=== PATIENT | male | born 1960 | race Caucasian/White ===

== ENCOUNTER 2020-04-19 17:58 | Emergency (ER) | payer OTHER, BC, SELFPAY ==
[2020-04-19] VITALS (17 sets, daily range): BP systolic 115–151; BP diastolic 72–106; PULSE 65–74; RESP 14–25; TEMP 36.5; O2SAT 94–98
--- NOTE | ~2020-04-19 | XR_ITS ---
EXAMINATION: XR knee LT min 4V DATE: 04/19/2020 19:01 INDICATION: Right knee pain TECHNIQUE: Four views of the right knee were obtained. COMPARISON: None. FINDINGS: Alignment is normal. No fracture or osteochondral lesion. There is mild tricompartmental os teoarthritis characterized by tiny marginal osteophytes. No joint effusion/synovitis. There is anter ior soft tissue swelling of the knee. IMPRESSION: 1. No acute osseous abnormality. Reviewed, dictated and finalized at location A.
--- NOTE | ~2020-04-19 | CT_ITS ---
EXAMINATION: CT brain wo con INDICATION: Head injury, transient alteration of awareness COMPARISON: None TECHNIQUE: Standard unenhanced head CT. The dose-length product (DLP) was 605.33 mGy-cm. The mA was a djusted according to patient size. Iterative reconstruction technique was employed. FINDINGS: There is no intracranial hemorrhage, acute infarction, or abnormal mass lesion. The ventric les are normal. There is no abnormal mass effect or midline shift. The pablo-white matter differentiat ion is normal. The basal cisterns are patent. The orbits are normal. The paranasal sinuses, mastoids and calvarium are normal. IMPRESSION: 1. No acute intracranial abnormality. Reviewed, dictated and finalized at location A.
--- NOTE | ~2020-04-19 | XR_ITS ---
EXAMINATION: XR chest 2V DATE: 04/19/2020 19:00 INDICATION: Transient alteration of awareness TECHNIQUE: AP and lateral views of the chest are obtained. COMPARISON: None available FINDINGS: The lungs are free of acute opacities. There is no pleural effusion or pneumothorax. The ca rdiomediastinal silhouette is normal. There are bridging osteophytes at multiple levels in the spine, consistent with diffuse idiopathic skeletal hyperostosis (DISH). IMPRESSION: 1. No acute cardiopulmonary abnormality. Reviewed, dictated and finalized at location A.
--- NOTE | 2020-04-19 18:23 | ECG_ITS ---
Measurements Intervals [place] Rate: 62 P: 39 DC: 221 QRS: -23 QRSD: 96 T: -1 QT: 376 QTc: 383 Interpretive Statements SINUS RHYTHM WITH FIRST DEGREE AV BLOCK EARLY PRECORDIAL R/S TRANSITION VOLTAGE CRITERIA FOR LVH BASELINE WANDER- V5 ABNORMAL ECG Electronically Signed On 04-20-2020 6:45:59 CDT by Sina Calderón D.O.
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
[2020-04-19 19:16] LABS: Basophils Absolute Auto 0.1 K/mm3 (0.0-0.1); Basophils Percent Auto 0.6 % (0.2-1.2); Eosinophils Absolute Auto 0.2 K/mm3 (0-0.3); Hematocrit 42.8 % (42.0-52.0); Hemoglobin 14.8 g/dL (14.0-18.0); Immature Granulocyte Absolute 0.03 K/mm3 (0.00-0.031); Immature Granulocyte Percent A 0.3 % (0-0.5); Lymphocytes Percent Auto 25.5 % (18.3-44.2); Mean Corpuscular HGB Conc 34.6 g/dl (32-36); Mean Corpuscular Volume 86.8 fl (80-100); Mean Platelet Volume 10.1 fl (7.4-10.4); Monocytes Absolute Auto 0.7 K/mm3 (0.1-0.6); Monocytes Percent Auto 7.9 % (2.6-8.5); Neutrophils Absolute Auto 5.8 K/mm3 (1.3-6.7); Neutrophils Percent Auto 63.7 % (45.5-73.1); Platelet Count Result 254 k/mm3 (150-375); Red Blood Count 4.93 M/mm3 (4.6-6.20); Red Cell Distribution Width 12.2 % (11.5-14.5)
[2020-04-19 19:25] LABS: INR 1.1; Prothrombin Time 13.6 Seconds (11.1-14.7)
[2020-04-19 19:26] LABS: Partial Thromboplastin Time 26.4 SECONDS (22.3-36.8)
[2020-04-19 19:27] LABS: Anion Gap 6 mmol/L (8-16); Blood Urea Nitrogen 21 mg/dL (9-20); Calcium 9.4 mg/dL (8.4-10.2); Carbon Dioxide 27 mmol/L (22-30); Chloride 106 mmol/L (98-107); Estimated CRCL calculation 101 ml/min; Estimated Glomerular Filt Rate > 60; Glucose 106 mg/dL (75-110); Potassium 4.2 mmol/L (3.4-5.0); Sodium 139 mmol/L (137-145)
[2020-04-19 19:39] LABS: Troponin I < 0.012 ng/mL (0.000-0.034)
== END 2020-04-19 20:33 | disposition home or self-care (01) ==
PROVIDERS: Physician Assistant; Emergency Provider Emergency Medicine; PCP Family Medicine
DX: M25.562 Pain in left knee (principal); S09.90XA Unspecified injury of head, initial encounter; M19.90 Unspecified osteoarthritis, unspecified site; F17.290 Nicotine dependence, other tobacco product, uncomplicated; V49.40XA Driver injured in collision with unspecified motor vehicles in traffic accident, initial encounter; I44.0 Atrioventricular block, first degree; R94.31 Abnormal electrocardiogram [ECG] [EKG]
CPT/HCPCS: 36415; 70450; 71046; 73564; 80048; 84484; 85025; 85610; 85730; 93005; 99284

== ENCOUNTER 2022-08-27 12:14 | Emergency (ER) | payer BC, SELFPAY ==
[2022-08-27 12:26] VITALS: BP 149/86; PULSE 68; RESP 20; TEMP 36.1; O2SAT 100
--- NOTE | 2022-08-27 12:45 | ED.GENADULT ---
HPI - General Adult General Chief complaint: Extremity Problem,Nontraumatic Stated complaint: Rt Foot Swelling Time Seen by Provider: 08/27/22 12:32 Source: patient Mode of arrival: ambulatory Limitations: no limitations History of Present Illness HPI narrative: Patient presents today complaining of redness, swelling, and pain to his right foot x3 days. Believes he has a gout flare. Currently rates his pain 6/10 and has been taking Aleve with some relief. Denies numbness or tingling. States his last gout flare was approximately 8 months ago. Prior to that he did not have a flare for 6-7 years. States he used to be on allopurinol, but was taken off of it 6-7 years ago. He is on meloxicam daily for arthritis. Related Data Home Medications Medication Instructions Recorded Confirmed meloxicam 7.5 mg tablet 7.5 mg PO DAILY 04/19/20 08/27/22 Allergies Allergy/AdvReac Type Severity Reaction Status Date / Time azithromycin AdvReac Severe Swelling Verified 08/27/22 12:18 of Lip/Tongue/Throat Review of Systems Review of Systems: CONSTITUTIONAL: Denies body aches, fever, chills, or sweats. EYES: Denies visual changes, redness, or discharge. ENT: Denies rhinorrhea, congestion, sore throat, or otalgia. CARDIOVASCULAR: Denies chest pain, palpitations, or edema. RESPIRATORY: Denies cough or dyspnea. GASTROINTESTINAL: Denies abdominal pain, nausea, vomiting, or diarrhea. GENITOURINARY: Denies dysuria or hematuria. SKIN: Denies rash, itching, or wounds. MUSCULOSKELETAL: Denies back pain, or myalgia.+ right foot pain and redness NEUROLOGIC: Denies headache, numbness, tingling, or weakness. PSYCH: Denies depression or anxiety. [facility] Past Medical History Medical History (Updated 08/27/22 @ 12:50 by Chantell Quinones, HARIS, BC) History of gout Osteoarthritis Social History Social History Smoking status: Current every day smoker Tobacco type: cigars Substance use: never Gender identity (if verbalized by the patient): Male Sexual Orientation (if Verbalized by the Patient): Straight or Heterosexual Comments At time of signature, I have reviewed and agree with nursing past medical, surgical, social and family history unless otherwise noted. Please see nursing chart for further information. There is no relevant family history pertinent to the presenting complaint Exam Narrative: GENERAL: Well-appearing, well-nourished, and in no acute distress. HEAD: Normocephalic, atraumatic. EYES: EOMI. No redness or drainage. Conjunctivae normal. ENT: Mucous membranes pink and moist. NECK: Normal AROM. CHEST: No respiratory distress. EXTREMITIES: Right foot: Mild to moderate redness, mild swelling, and tenderness to the right 1st MTP. Distal sensation intact. Capillary refill normal. Pedal pulse normal. Full range of motion of all toes. SKIN: Warm, dry, no rash. Capillary refill normal. Normal skin turgor. NEURO: No focal deficits. Alert and oriented x3. Gait steady. PSYCH: Normal affect. No signs of depression or anxiety. Course Course Level of Care: Express Care Visit Vital Signs Vital signs: Vital Signs Temperature 97.0 F L 08/27/22 12:26 Pulse Rate 68 08/27/22 12:26 Respiratory Rate 08/27/22 12:26 Blood Pressure 149/86 H 08/27/22 12:26 Pulse Oximetry 100 08/27/22 12:26 Oxygen Delivery Room Air 08/27/22 12:26 Temperature 97.0 F L 08/27/22 12:26 Pulse Rate 68 08/27/22 12:26 Respiratory Rate 20 08/27/22 12:26 Blood Pressure 149/86 H 08/27/22 12:26 Pulse Oximetry 100 08/27/22 12:26 Oxygen Delivery Room Air 08/27/22 12:26 Reviewed. Pt has been instructed to follow up with his PCP regarding his elevated blood pressure today. Medical Decision Making MDM Narrative Medical decision making narrative: Patient's exam is consistent with a gout flare. Will prescribe Medrol Dosepak and colchicine.
== END 2022-08-27 12:52 | disposition home or self-care (01) ==
PROVIDERS: Emergency Provider Nurse Practitioner; PCP Family Medicine
DX: M10.9 Gout, unspecified (principal); F17.290 Nicotine dependence, other tobacco product, uncomplicated; M19.90 Unspecified osteoarthritis, unspecified site
CPT/HCPCS: 99213; G0463

== ENCOUNTER 2022-12-27 13:49 | Emergency (ER) | payer BC, SELFPAY ==
[2022-12-27 14:02] VITALS: BP 131/75; PULSE 70; RESP 20; TEMP 36.8; O2SAT 99
--- NOTE | 2022-12-27 14:22 | ED.GENADULT ---
HPI - General Adult General Chief complaint: Extremity Problem,Nontraumatic Stated complaint: Toe Swelling Rt Foot Time Seen by Provider: 12/27/22 14:23 Source: patient Mode of arrival: ambulatory Limitations: no limitations History of Present Illness HPI narrative: 62-year-old male patient presents to the [facility] with complaints of bilateral Clive swelling. Patient states it started a couple of days ago after he had some beers. Patient states he used to get down a lot and adjusted his diet but recently had some beer and noticed the next day he had some redness and swelling to the right great toe area. Patient states he did take some ibuprofen and swelling did go down now he is having pain to the left great toe area. Denies any fevers, body aches or chills. Denies any trauma to the feet he is aware of. Related Data Home Medications Medication Instructions Recorded Confirmed meloxicam 7.5 mg tablet 7.5 mg PO DAILY 04/19/20 12/27/22 Allergies Allergy/AdvReac Type Severity Reaction Status Date / Time azithromycin AdvReac Severe Swelling Verified 12/27/22 13:57 of Lip/Tongue/Throat Review of Systems Review of Systems: CONSTITUTIONAL: Denies fever, chills, or sweats. EYES: Denies visual changes, redness, or discharge. ENT: Denies rhinorrhea, congestion, sore throat, or otalgia. CARDIOVASCULAR: Denies chest pain, palpitations, or edema. RESPIRATORY: Denies cough or dyspnea. GASTROINTESTINAL: Denies abdominal pain, nausea, vomiting, or diarrhea. GENITOURINARY: Denies dysuria or hematuria. SKIN: Denies rash or itching. MUSCULOSKELETAL: Denies back pain, joint pain, or myalgia. Positive pain to bilateral great toes NEUROLOGIC: Denies headache, numbness, or weakness. PSYCHIATRIC: Denies anxiety or depression. [facility] Past Medical History Medical History History of gout Osteoarthritis Social History Social History Smoking status: Current every day smoker Tobacco type: cigars Substance use: never Gender identity (if verbalized by the patient): Male Sexual Orientation (if Verbalized by the Patient): Straight or Heterosexual Comments At the time of my signature I agree with nursing past medical history, surgical, social, and family history. There is no relevant family history pertinent to the presenting complaint. Exam Narrative: GENERAL: Well-appearing, well-nourished, and in no acute distress. HEAD: Normocephalic, atraumatic. EYES: PERRLA and EOMI. ENT: Nares clear, no rhinorrhea or epistaxis. Mucous membranes moist. NECK: Supple. No lymphadenopathy CHEST: Clear to auscultation. No respiratory distress. HEART: Regular rate and rhythm. No murmur heard. Normal peripheral pulses. ABDOMEN: Soft, nontender, nondistended, normal active bowel sounds. EXTREMITIES: Patient able to bear weight and ambulate without pain. No surface trauma, slight Erythema to bilateral toes no obvious warmth noted on palpation. no ecchymosis, lesions, ulcers or break in skin integrity. The R/L foot is with/without obvious asymmetry or deformity when compared to the R/L foot. No bony step-off, tender to palpation over the left great toe, no tenderness on palpation to the midfoot or hindfoot or sole. Normal plantar/dorsiflexion, inversion/eversion. Distal motor and neurovascular status are intact SKIN: Warm, dry, no rash. NEURO: No focal deficits. Alert and oriented x3. Course Course Level of Care: Express Care Visit Vital Signs Vital signs: Vital Signs Temperature 36.8 C 12/27/22 14:02 Pulse Rate 70 12/27/22 14:02 Respiratory Rate 20 12/27/22 14:02 Blood Pressure 131/75 12/27/22 14:02 Pulse Oximetry 99 12/27/22 14:02 Oxygen Delivery Room Air 12/27/22 14:02 Temperature 36.8 C 12/27/22 14:02 Pulse Rate 70 12/27/22 14:02 Respiratory Rate 20 12/27/22 14:02 Blo
== END 2022-12-27 14:41 | disposition home or self-care (01) ==
PROVIDERS: Emergency Provider Nurse Practitioner Family; PCP Family Medicine
DX: M10.9 Gout, unspecified (principal); F17.290 Nicotine dependence, other tobacco product, uncomplicated; M19.90 Unspecified osteoarthritis, unspecified site
CPT/HCPCS: 99213; G0463

== ENCOUNTER 2023-06-20 08:33 | Emergency (ER) | payer BC, SELFPAY ==
--- NOTE | ~2023-06-20 | XR_ITS ---
EXAMINATION: XR foot RT min 3V DATE: 06/20/2023 09:08 INDICATION: Right foot pain TECHNIQUE: Dorsoplantar, lateral, and 2 oblique views of the right foot were obtained. COMPARISON: None. FINDINGS: Bone alignment is normal. There is no fracture. There is mild osteoarthritis of multiple in terphalangeal joints. There is mild lateral soft tissue swelling of the foot. There are posterior and plantar calcaneal enthesophytes. IMPRESSION: 1. Mild lateral soft tissue swelling the foot without acute osseous abnormality identified. Reviewed, dictated and finalized at location A. ARD [facility]AC[facility]RACK
[2023-06-20 08:42] VITALS: BP 142/82; PULSE 63; RESP 18; TEMP 36.6; O2SAT 100
--- NOTE | 2023-06-20 08:58 | ED.LOWEXIN ---
HPI - Extremity Injury (Lower) General Chief Complaint: Extremity Injury, Lower Stated Complaint: Rt Foot Pain and Swelling Time Seen by Provider: 06/20/23 08:34 Source: patient Mode of arrival: ambulatory Limitations: no limitations History of Present Illness HPI Narrative: 63-year-old male presents to [facility] with complaints of pain and swelling to lateral aspect of right foot. Pt reports that he takes Meloxicam daily. Pt reports that he also has been elevating his right foot and taking OTC Motrin with minimal relief. Pt denies injury; reports that he has been standing and cooking the past few days and also has been wearing boots and walking on rocks while working but denies actual injury. Pt denies numbness, tingling, erythema, bruising or open wounds. Pt reports that he has a a history of gout but reports that these symptoms feel different. Onset (ago): day(s) (3) Injury: Right: foot Relieving factors: nothing Exacerbating factors: weight bearing and movement Other symptoms: none Treatments prior to arrival: NSAIDS Related Data Home Medications Medication Instructions Recorded Confirmed meloxicam 7.5 mg tablet 7.5 mg PO DAILY 04/19/20 06/20/23 tadalafil 20 mg tablet 20 mg PO PRN PRN Erectile 06/20/23 06/20/23 Dysfunction Allergies Allergy/AdvReac Type Severity Reaction Status Date / Time azithromycin AdvReac Severe Swelling Verified 12/27/22 13:57 of Lip/Tongue/Throat Review of Systems Constitutional: Constitutional: Denies chills, Denies fatigue, Denies fever(s) and Denies weakness ENT: Denies vertigo, Denies dizziness and Denies epistaxis Cardiovascular: Cardiovascular: Denies chest pain Respiratory: Respiratory: Denies cough, Denies dyspnea and Denies wheezing Gastrointestinal: Gastrointestinal: Denies abdominal pain, Denies bloating, Denies constipation, Denies heartburn and Denies diarrhea Musculoskeletal: Musculoskeletal: Reports arthralgias and Reports joint swelling Comments: pain and swelling to lateral aspect of right foot Integumentary/Breasts: Skin/Breast: Denies rash Neurologic: Denies vertigo, Denies dizziness, Denies syncope and Denies headache(s) [facility] Past Medical History Medical History History of gout Osteoarthritis Social History Social History Smoking status: Current every day smoker Tobacco type: cigars Substance use: never Gender identity (if verbalized by the patient): Male Sexual Orientation (if Verbalized by the Patient): Straight or Heterosexual Comments At time of signature, I agree with nursing past medical, surgical, social and family history. There is no relevant family history pertinent to the presenting complaint. Exam Const: General: healthy appearing and no acute distress Nutritional Appearance: well nourished Orientation/consciousness: patient oriented x3 Limitations: no limitations Eyes: Conjunctivae: conjunctivae normal Neck: Neck: normal visual inspection Resp: Effort & Inspection: normal respiratory effort and not labored Auscultation: clear to auscultation bilaterally, no crackles, no rales, no rhonchi and no wheezes Cardio: Rate: regular rate Rhythm: regular rhythm Heart sounds: no murmurs Skin: General skin exam: normal color Rashes: no rashes Neuro: General: patient oriented x3 Speech: normal speech Extrem: Other: mild pain noted to right foot upon palpation; mild swelling noted to lateral aspect of right foot. Pulses are within normal limits. No erythema or open wounds noted Psych: Mental Status: mental status grossly normal Affect: normal affect Attitude: cooperative Course Course Level of Care: Express Care Visit Vital Signs Vital signs: Vital Signs Temperature 36.6 C 06/20/23 08:42 Pulse Rate 63 06/20/23 08:42 Respiratory Rate 18 06/20/23 08:42 Blood Pressure 14
== END 2023-06-20 09:55 | disposition home or self-care (01) ==
PROVIDERS: Emergency Provider Nurse Practitioner Family; PCP Family Medicine
DX: M79.671 Pain in right foot (principal); M79.89 Other specified soft tissue disorders; F17.290 Nicotine dependence, other tobacco product, uncomplicated; Z79.1 Long term (current) use of non-steroidal anti-inflammatories (NSAID)
CPT/HCPCS: 73630; 99213; G0463

== ENCOUNTER 2024-04-07 09:13 | Emergency (ER) | payer BC, SELFPAY ==
[2024-04-07 09:24] VITALS: BP 139/73; PULSE 57; RESP 18; TEMP 36.6; O2SAT 97
--- NOTE | 2024-04-07 09:24 | ED.LOWEXIN ---
HPI - Extremity Injury (Lower) General Chief Complaint: Extremity Injury, Lower Stated Complaint: knee pain Time Seen by Provider: 04/07/24 09:24 Source: patient, RN notes reviewed and old records reviewed Mode of arrival: ambulatory Limitations: no limitations History of Present Illness HPI Narrative: 64-year-old male to Express Care for complaint of right leg swelling, weakness, sharp pain for 1 day. Patient reports that 1 week ago he was experiencing what he believed was right sciatic pain radiating down into right thigh. Patient reports then that pain resolved. Patient states that current symptoms began yesterday. Patient has attempted to treat at home with Aleve with little relief. Patient reports that pain is significantly worse with weight-bearing and ambulation. Patient endorses history of tobacco use. Patient denies numbness, tingling, bleeding or clotting disorders, Shortness of breath, chest pain. Patient resting in exam room in no acute distress. Respirations even and nonlabored. Related Data Home Medications Medication Instructions Recorded Confirmed meloxicam 7.5 mg tablet 7.5 mg PO DAILY 04/19/20 04/07/24 tadalafil 20 mg tablet 20 mg PO PRN PRN Erectile 06/20/23 04/07/24 Dysfunction Allergies Allergy/AdvReac Type Severity Reaction Status Date / Time azithromycin AdvReac Severe Swelling Verified 04/07/24 10:27 of Lip/Tongue/Throat Review of Systems Review of Systems: All systems reviewed & are unremarkable except as noted in HPI and below Constitutional: Constitutional: Reports no additional constitutional complaints Eyes: Eyes: Reports no additional eye complaints ENT: Reports system reviewed and no additional complaints, except as documented Cardiovascular: Cardiovascular: Reports no additional cardiovascular complaints, Denies chest pain and Denies dyspnea Respiratory: Respiratory: Reports no additional respiratory complaints, Denies cough and Denies dyspnea Musculoskeletal: Musculoskeletal: Reports as per HPI, Reports arthralgias (right knee), Reports joint swelling and Reports radiating pain into limb Neurologic: Reports system reviewed and no additional complaints, except as documented Psychiatric: Psychiatric: Reports no additional psychiatric complaints PMFSH Past Medical History Medical History History of gout Osteoarthritis Social History Social History Smoking status: Current every day smoker Tobacco type: cigars Substance use: never Gender identity (if verbalized by the patient): Male Sexual Orientation (if Verbalized by the Patient): Straight or Heterosexual Comments At the time of my signature, I reviewed and agree with the nursing past medical, surgical, social, and family history. There is no relevant family history pertinent to the patient complaint. Exam Const: General: cooperative, no acute distress, alert, uncomfortable, well groomed and well nourished Nutritional Appearance: well nourished Orientation/consciousness: patient oriented x3 Limitations: no limitations HENMT: Head: normal to inspection Ears: external ears normal Face/Nose/Sinus: Normal external nose present, Normal nares present, normal facial exam, No erythema and No edema Face and sinus: normal facial exam, no erythema and no edema Mouth: Yes Normal oral and palatal mucosa present Eyes: General: appearance normal, both eyes and all related structures Neck: Neck: normal visual inspection, full ROM and no meningeal signs Chest: Chest palpation & inspection: normal inspection of the chest Resp: Effort & Inspection: normal respiratory effort and able to speak in complete sentences Auscultation: clear to auscultation bilaterally Cardio: Jugular venous distension: no JVD Rate: regular rate Rhythm: regular rhythm Back/Spine/Pelvis: Cervical Spine: c
[2024-04-07 09:25] VITALS: BP 139/73; PULSE 57; RESP 18; TEMP 36.6; O2SAT 97
== END 2024-04-07 09:50 | disposition short-term general hospital (02) ==
LOC: EXPTROY 09:17
PROVIDERS: Emergency Provider Nurse Practitioner Family; PCP Family Medicine
DX: I82.401 Acute embolism and thrombosis of unspecified deep veins of right lower extremity (principal); M25.561 Pain in right knee; F17.290 Nicotine dependence, other tobacco product, uncomplicated; M10.9 Gout, unspecified; M19.90 Unspecified osteoarthritis, unspecified site
CPT/HCPCS: 99212; G0463

== ENCOUNTER 2024-04-07 10:06 | Emergency (ER) | payer BC, SELFPAY ==
--- NOTE | ~2024-04-07 | US_ITS ---
EXAMINATION: US venous doppler LE RT DATE: 04/07/2024 11:28 INDICATION: Right lower limb pain and swelling TECHNIQUE: Grayscale ultrasound images without and with compression and Doppler ultrasound images of the right lower extremity veins were obtained. COMPARISON: None. FINDINGS: There is noncompressible thrombus beginning in the mid right femoral vein and extending distally thro ugh the popliteal vein and into the proximal peroneal and posterior tibial veins of the calf. The vis ualized portions of right common femoral vein, profunda (deep) femoral vein, the more proximal femora l vein, more distal peroneal and posterior tibial veins, gastrocnemius vein and proximal to mid great er saphenous vein outflow are patent. IMPRESSION: 1. Above and [id number] deep venous thrombosis extending from the proximal posterior tibial and peroneal veins through the popliteal vein into the mid superficial femoral vein. Reviewed, dictated and finalized at location B. IMPRESSION: 1. Above and [id number] deep venous thrombosis extending from the proximal posterior tibial and peroneal veins through the popliteal vein into the mid barajas perficial femoral vein.
[2024-04-07 10:23] VITALS: BP 167/84; PULSE 58; RESP 15; TEMP 36.7; O2SAT 98
--- NOTE | 2024-04-07 10:28 | ED.EXTPRO ---
HPI - Extremity Problem General Chief complaint: Extremity Problem,Nontraumatic Stated complaint: right leg pain Time Seen by Provider: 04/07/24 10:29 Focused HPI: This is a 64 year old male that presents to the ER for right leg swelling. Ongoing over the last 3 days. Sent to the ER to r/o DVT. Denies fevers or redness. GENERAL: Well-appearing, well-nourished, and in no acute distress. HEAD: Normocephalic, atraumatic. CHEST: Clear to auscultation. ?No respiratory distress. HEART: Regular rate and rhythm.? NEURO: ?Alert and oriented x3. Patient screened in triage and initial orders placed.? ?Additional care and disposition to be based upon?diagnostic testing and treatment. Related Data Home Medications Medication Instructions Recorded Confirmed meloxicam 7.5 mg tablet 7.5 mg PO DAILY 04/19/20 04/07/24 tadalafil 20 mg tablet 20 mg PO PRN PRN Erectile 06/20/23 04/07/24 Dysfunction Allergies Allergy/AdvReac Type Severity Reaction Status Date / Time azithromycin AdvReac Severe Swelling Verified 04/07/24 10:27 of Lip/Tongue/Throat Review of Systems Review of Systems: CONSTITUTIONAL: Denies fever CARDIOVASCULAR: Reports edema. Denies chest pain RESPIRATORY: Denies dyspnea. SKIN: Denies redness All systems reviewed & are unremarkable except as noted in HPI and below PMFSH Past Medical History Medical History History of gout Osteoarthritis Social History Social History Smoking status: Current every day smoker Tobacco type: cigars Substance use: never Gender identity (if verbalized by the patient): Male Sexual Orientation (if Verbalized by the Patient): Straight or Heterosexual Exam Narrative: GENERAL: Well-appearing, well-nourished, and in no acute distress. HEAD: Normocephalic, atraumatic. EYES: EOMI. CHEST: No respiratory distress. HEART: Regular rate EXTREMITIES: Normal range of motion. Mild non-pitting edema to the right lower leg. Normal DP pulse. Normal sensation SKIN: Warm, dry, no rash. NEURO: No focal deficits. Alert and oriented x3. PSYCH: Normal mood and affect Course Consultations Consultation #1: Spoke with patient's PCP who agrees with plan and will follow up in clinic Date: 04/07/24 Vital Signs Vital signs: Vital Signs Temperature 98.1 F 04/07/24 10:23 Pulse Rate 58 L 04/07/24 10:23 Respiratory Rate 15 04/07/24 10:23 Blood Pressure 167/84 H 04/07/24 10:23 Pulse Oximetry 98 04/07/24 10:23 Oxygen Delivery Room Air 04/07/24 10:23 Temperature 98.1 F 04/07/24 10:23 Pulse Rate 58 L 04/07/24 10:23 Respiratory Rate 15 04/07/24 10:23 Blood Pressure 167/84 H 04/07/24 10:23 Pulse Oximetry 98 04/07/24 10:23 Oxygen Delivery Room Air 04/07/24 10:23 MDM - Extremity (Nontraumatic) MDM Narrative Medical decision making narrative: patient presents to the emergency department for right posterior knee pain. Found to have a DVT on ultrasound. He is neurovascularly intact. Denies any chest pain, shortness of breath. He is not tachycardic. Oxygen saturation is normal on room air. Patient will be started on Eliquis. Spoke with patient's PCP who agrees with plan and will follow up in clinic Differential Diagnosis Differential diagnosis: Likely superficial thrombophlebitis and deep vein thrombosis of lower extremity Lab Data 04/07/24 11:57 04/07/24 11:57 Labs: Lab Results 04/07/24 Range/Units 11:57 WBC 13.7 H (4.5-10.0) K/mm3 RBC 4.85 (4.6-6.20) M/mm3 Hgb 14.9 (14.0-18.0) g/dL Hct 44.5 (42.0-52.0) % MCV 91.8 (80-100) fl MCH 30.7 (26-34) pg MCHC 33.5 (32-36) g/dl RDW 13.2 (11.5-14.5) % Plt Count 186 (150-375) k/mm3 MPV 10.3 (7.4-10.4) fl Immature Gran % (Auto) 0.6 H (0-0.5) % Neut % (Auto) 73.9 H (45.5-73.1) % Lymph % (Auto) 16.5 L (1
[2024-04-07 12:07] LABS: Basophils Percent Auto 0.2 % (0.2-1.2); Eosinophils Absolute Auto 0.1 K/mm3 (0-0.3); Eosinophils Percent Auto 0.7 % (0-4.4); Hematocrit 44.5 % (42.0-52.0); Hemoglobin 14.9 g/dL (14.0-18.0); Immature Granulocyte Absolute 0.08 K/mm3 (0.00-0.031); Immature Granulocyte Percent A 0.6 % (0-0.5); Lymphocytes Absolute Auto 2.25 K/mm3 (0.9-3.2); Lymphocytes Percent Auto 16.5 % (18.3-44.2); Mean Corpuscular HGB Conc 33.5 g/dl (32-36); Mean Corpuscular Hemoglobin 30.7 pg (26-34); Mean Corpuscular Volume 91.8 fl (80-100); Mean Platelet Volume 10.3 fl (7.4-10.4); Monocytes Absolute Auto 1.1 K/mm3 (0.1-0.6); Monocytes Percent Auto 8.1 % (2.6-8.5); Neutrophils Absolute Auto 10.1 K/mm3 (1.3-6.7); Neutrophils Percent Auto 73.9 % (45.5-73.1); Platelet Count Result 186 k/mm3 (150-375); Red Blood Count 4.85 M/mm3 (4.6-6.20); Red Cell Distribution Width 13.2 % (11.5-14.5); White Blood Count 13.7 K/mm3 (4.5-10.0)
[2024-04-07 12:16] LABS: Anion Gap 10 mmol/L (4-12); Blood Urea Nitrogen 30 mg/dL (9-20); Calcium 9.2 mg/dL (8.4-10.2); Carbon Dioxide 24 mmol/L (22-30); Chloride 103 mmol/L (98-107); Estimated CRCL calculation 107 ml/min; Estimated Glomerular Filt Rate > 60; Glucose 97 mg/dL (65-110); Potassium 4.2 mmol/L (3.4-5.0); Sodium 137 mmol/L (137-145)
[2024-04-07 12:23] LABS: INR 1.1; Prothrombin Time 14.4 Seconds (11.1-14.7)
[2024-04-07 12:24] LABS: Partial Thromboplastin Time 24.7 Seconds (22.3-36.8)
[2024-04-07 12:35] VITALS: BP 159/84; PULSE 51; RESP 18; TEMP 36.6; O2SAT 96
--- NOTE | 2024-04-07 16:32 | PCCCNOTE ---
rehabilitation program coordinator called to the ED for assistance with Eliquis for pt. Pt given a 30 day free coupon. Explained to pt, he verbalized understanding.
== END 2024-04-07 12:35 | disposition home or self-care (01) ==
PROVIDERS: Emergency Provider Physician Assistant; PCP Family Medicine
DX: I82.431 Acute embolism and thrombosis of right popliteal vein (principal); F17.290 Nicotine dependence, other tobacco product, uncomplicated; Z79.1 Long term (current) use of non-steroidal anti-inflammatories (NSAID)
CPT/HCPCS: 36415; 80048; 85025; 85610; 85730; 93971; 99284

== ENCOUNTER 2024-05-23 16:07 | Emergency (ER) | payer BC, SELFPAY ==
[2024-05-23 16:31] VITALS: BP 160/86; PULSE 73; RESP 18; TEMP 36.5; O2SAT 98
--- NOTE | 2024-05-23 17:03 | ED.EXTPRO ---
HPI - Extremity Problem General Chief complaint: Extremity Problem,Nontraumatic Stated complaint: LT Foot Injury Time Seen by Provider: 05/23/24 16:45 Source: patient and RN notes reviewed Mode of arrival: ambulatory Limitations: no limitations History of Present Illness HPI Narrative: Patient presents today complaining of pain to his left 1st toe area. Symptoms began today and have worsened through the day. Denies numbness or tingling. Believes he is having a gout flare as he has had several in the past. He is pain-free at rest, but increases with any weight-bearing or movement of the toe. He has tried Tylenol without relief. He is currently on Eliquis due to DVT that was found last month. Related Data Home Medications Medication Instructions Recorded Confirmed tadalafil 20 mg tablet 20 mg PO PRN PRN Erectile 06/20/23 05/23/24 Dysfunction Allergies Allergy/AdvReac Type Severity Reaction Status Date / Time azithromycin AdvReac Severe Swelling Verified 05/23/24 16:31 of Lip/Tongue/Throat Review of Systems Review of Systems: CONSTITUTIONAL: Denies body aches, fever, chills, or sweats. EYES: Denies visual changes, redness, or discharge. ENT: Denies rhinorrhea, congestion, sore throat, or otalgia. CARDIOVASCULAR: Denies chest pain, palpitations, or edema. RESPIRATORY: Denies cough or dyspnea. GASTROINTESTINAL: Denies abdominal pain, nausea, vomiting, or diarrhea. GENITOURINARY: Denies dysuria or hematuria. SKIN: Denies rash, itching, or wounds. MUSCULOSKELETAL: Denies back pain. + left 1st toe pain NEUROLOGIC: Denies headache, numbness, tingling, or weakness. PSYCH: Denies depression or anxiety. [facility] Past Medical History Medical History (Updated 05/23/24 @ 17:07 by Chantell Quinones, HARIS, ) DVT (deep venous thrombosis) History of gout Osteoarthritis Social History Social History Smoking status: Current every day smoker Tobacco type: cigars Substance use: never Gender identity (if verbalized by the patient): Male Sexual Orientation (if Verbalized by the Patient): Straight or Heterosexual Comments At time of signature, I have reviewed and agree with nursing past medical, surgical, social and family history unless otherwise noted. Please see nursing chart for further information. There is no relevant family history pertinent to the presenting complaint Exam Narrative: GENERAL: Well-appearing, well-nourished, and in no acute distress. HEAD: Normocephalic, atraumatic. EYES: EOMI. No redness or drainage. Conjunctivae normal. ENT: Mucous membranes pink and moist. NECK: Normal AROM. CHEST: No respiratory distress. EXTREMITIES: Left foot: Mild redness and tenderness and scant edema to the left 1st MTP. Pain with range of motion. Distal sensation intact. Capillary refill normal. Pedal pulse is strong. Remainder of the foot appears normal without tenderness. Lower leg is nontender. SKIN: Warm, dry, no rash. Capillary refill normal. Normal skin turgor. NEURO: No focal deficits. Alert and oriented x3. Gait steady. PSYCH: Normal affect. No signs of depression or anxiety. Course Course Level of Care: Express Care Visit Vital Signs Vital signs: Vital Signs Temperature 97.7 F 05/23/24 16:31 Pulse Rate 73 05/23/24 16:31 Respiratory Rate 18 05/23/24 16:31 Blood Pressure 160/86 H 05/23/24 16:31 Pulse Oximetry 98 05/23/24 16:31 Temperature 97.7 F 05/23/24 16:31 Pulse Rate 73 05/23/24 16:31 Respiratory Rate 18 05/23/24 16:31 Blood Pressure 160/86 H 05/23/24 16:31 Pulse Oximetry 98 05/23/24 16:31 Reviewed MDM - Extremity (Nontraumatic) MDM Narrative Medical decision making narrative: Patient's symptoms are likely due to gout. He cannot take NSAIDs due to Eliquis use. Prescription for prednisone sent to pharmacy. Anticipatory guidance given Differential Diagnosis Differential diagnosis: Likely gout, cellulitis and deep vein thrombosis of lower extremity Critical Care Time Critical Care Time Critical Care Time: No Discharge Plan Discharge Clinical Impression: Acute gout involving toe of left foot Qualifiers: Gout etiology: unspecified cause Qualified Code(s): M10.9 - Gout, unspecified Patient Disposition: Home, Self-Care Condition: Stable Instructions: Gout (ED) Additional Instructions: You have been diagnosed with a gout flare. Please take the prednisone as directed. Take Tylenol for pain. Follow-up with your PCP if symptoms do not improve. Go to the ER immediately if symptoms worsen. Your blood pressure was elevated above 120/80 today at Urgent Care. This puts you above the threshold for follow up. Please schedule a followup visit with your personal physician as soon as possible, for further evaluation and treatment. Even blood pressure exceeding 120/80 may indicate pre-hypertension. Prescriptions: New prednisone 50 mg tablet 50 mg PO DAILY 5 Days Qty: 5 0RF No Action tadalafil 20 mg tablet 20 mg PO PRN PRN (Reason: Erectile Dysfunction) [place] DVT-PE Treat 30D Start 5 mg (74 tabs) tablets,dose pack See Rx Instructions .ROUTE .COMPLEX Qty: 74 0RF Rx Instructions: orally per package directions Follow-up/Referrals: [place],Tres Hudson MD [Primary Care Provider] - Stand Alone Forms: Work/School Release IP Time of Disposition: 17:07
== END 2024-05-23 17:14 | disposition home or self-care (01) ==
PROVIDERS: Emergency Provider Nurse Practitioner; PCP Family Medicine
DX: M10.9 Gout, unspecified (principal); M19.90 Unspecified osteoarthritis, unspecified site; Z86.718 Personal history of other venous thrombosis and embolism; F17.290 Nicotine dependence, other tobacco product, uncomplicated
CPT/HCPCS: 99213; G0463

== ENCOUNTER 2024-07-16 10:09 | Emergency (ER) | payer BC, SELFPAY ==
--- NOTE | ~2024-07-16 | XR_ITS ---
EXAMINATION: XR foot RT min 3V DATE: 07/16/2024 11:41 INDICATION: Right foot pain and swelling. TECHNIQUE: 4 views of right foot were obtained. COMPARISON: Right foot radiographs 06/20/2023 FINDINGS: There is moderate hallux valgus. No fracture. There is mild osteoarthritis of first and sec ond metatarsophalangeal joints and some of the interphalangeal joints and midfoot joints. There are e nthesophytes at the posterior and plantar aspects of calcaneal tuberosity. IMPRESSION: 1. Moderate hallux valgus. 2. Mild polyarticular osteoarthritis. Reviewed, dictated and finalized at location A. 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
[2024-07-16 10:26] VITALS: BP 153/92; PULSE 72; RESP 18; TEMP 36.3; O2SAT 99
--- NOTE | 2024-07-16 11:30 | ED.EXTPRO ---
HPI - Extremity Problem General Chief complaint: Extremity Problem,Nontraumatic Stated complaint: rt foot pain Source: patient Mode of arrival: ambulatory Limitations: no limitations History of Present Illness HPI Narrative: 64-year-old male presents to [facility] with complaints of pain, swelling, erythema and warmth to the base of his right great toe for the past 5 days. Patient reports that he called his primary care provider yesterday and start him on 10 mg of prednisone daily. Patient reports he was started on Eliquis a few months ago due to a DVT but decided to stop the medication 5 days ago. Patient reports his primary care provider is unaware that he has stopped Eliquis. Patient denies injury to his foot. Patient reports he has a history of gout. Patient reports that he believes that he has had gout twice since being placed on Eliquis and this is one of the reasons that he has stopped medication. Patient denies chest pain, shortness of breath, fever, body aches, chills, nausea vomiting or diarrhea MD Complaint: extremity pain and extremity swelling Onset (ago): day(s) (5) Location: right Exacerbating factors: weight bearing, walking and palpation Associated symptoms: denies other symptoms Related Data Home Medications ?Medication ?Instructions ?Recorded ?Confirmed ?Last Taken ?Type tramadol 50 mg tablet mg 07/16/24 Unknown History Allergies Allergy/AdvReac Type Severity Reaction Status Date / Time azithromycin Allergy Severe Swelling Verified 07/16/24 10:59 of Lip/Tongue/Throat Review of Systems Constitutional: Constitutional: Denies chills, Denies fatigue, Denies fever(s) and Denies weakness ENT: Denies dizziness, Denies nasal congestion and Denies sore throat Cardiovascular: Cardiovascular: Denies chest pain Respiratory: Respiratory: Denies cough, Denies dyspnea and Denies wheezing Gastrointestinal: Gastrointestinal: Denies diarrhea, Denies nausea and Denies vomiting Musculoskeletal: Comments: Pain, swelling, erythema and warmth to base of right great toe and right foot PMFSH Past Medical History Medical History DVT (deep venous thrombosis) History of gout Osteoarthritis Social History Social History Smoking status: Current every day smoker Tobacco type: cigars Substance use: never Gender identity (if verbalized by the patient): Male Sexual Orientation (if Verbalized by the Patient): Straight or Heterosexual Comments At time of signature, I agree with nursing past medical, surgical, social and family history. There is no relevant family history pertinent to the presenting complaint. Exam Const: General: healthy appearing and no acute distress Nutritional Appearance: well nourished Orientation/consciousness: patient oriented x3 Limitations: no limitations HENMT: Head: normal to inspection Neck: Neck: normal visual inspection Resp: Effort & Inspection: normal respiratory effort and not labored Auscultation: clear to auscultation bilaterally, no crackles, no rales, no rhonchi and no wheezes Cardio: Rate: regular rate Rhythm: regular rhythm Heart sounds: no murmurs Skin: Rashes: no rashes Wounds: no wounds Other: Mild erythema noted to base of right great toe. There is no streaking erythema, open wounds, purulent drainage or bruising noted Neuro: General: patient oriented x3 and moves all extremities Extrem: Other: Moderate swelling to dorsal aspect of right foot. There is mild erythema noted to base of right great toe. There is no bruising, open wounds or streaking erythema noted. Psych: Mental Status: mental status grossly normal Affect: normal affect Attitude: cooperative Course Course Level of Care: Express Care Visit Vital Signs Vital signs: Vital Signs Temperature 36.3 C L 07/16/24 10:26 Pulse Rate 72 07/16/24 10:26 Respiratory Rate 18 07/16/24 10:26 Blood Pressure 153/92 H 07/16/24 10:26 Pulse Oximetry 99 07/16/24 10:26 Oxygen Delivery Room Air 07/16/24 10:26 Temperature 36.3 C L 07/16/24 10:26 Pulse Rate 72 07/16/24 10:26 Respiratory Rate 18 07/16/24 10:26 Blood Pressure 153/92 H 07/16/24 10:26 Pulse Oximetry 99 07/16/24 10:26 Oxygen Delivery Room Air 07/16/24 10:26 MDM - Extremity (Nontraumatic) MDM Narrative Medical decision making narrative: Spoke with collaborating physician Dr Grant and she suggests the patient start colchicine, change prednisone 10 mg dated Medrol Dosepak and to also add indomethacin. Patient denies history of kidney disease. Educated patient follow-up with primary care provider and to discuss stopping blood thinner. Educated patient to proceed to the emergency room if symptoms worsen Differential Diagnosis Differential diagnosis: Likely cellulitis and superficial thrombophlebitis Imaging Data Radiologist's impression: [address] [address] XRay Report Signed Patient: Mir Maharaj : 1960 MR#: [id number] Age: 64 Acct:[id number] Loc: [facility] ADM Date: 07/16/[address]: Ordering Physician: Rosa Whatley APRN Date of Service: 07/16/24 Procedure(s): XR foot RT min 3V Accession Number(s): [id number] cc: Rosa Whatley APRN; Ramy, Tres Hudson MD~ EXAMINATION: XR foot RT min 3V DATE: 07/16/2024 11:41 INDICATION: Right foot pain and swelling. TECHNIQUE: 4 views of right foot were obtained. COMPARISON: Right foot radiographs 06/20/2023 FINDINGS: There is moderate hallux valgus. No fracture. There is mild osteoarthritis of first and second metatarsophalangeal joints and some of the interphalangeal joints and midfoot joints. There are enthesophytes at the posterior and plantar aspects of calcaneal tuberosity. IMPRESSION: 1. Moderate hallux valgus. 2. Mild polyarticular osteoarthritis. Reviewed, dictated and finalized at location A. COILER Dictated By: Сергей Chicas MD 07/16/24 1146 Signed By: <Electronically signed by Сергей Cihcas MD in [place]> 07/16/24 1148 Critical Care Time Critical Care Time Critical Care Time: No Discharge Plan Discharge Clinical Impression: Gout Patient Disposition: Home, Self-Care Condition: Stable Instructions: Low Purine Diet (ED), Gout (ED) Additional Instructions: Follow-up with primary care provider to discuss stopping blood thinner Stop prednisone 10 mg start Medrol Dosepak as prescribed Take colchicine as prescribed Take indomethacin as prescribed; do not take other NSAIDs while taking indomethacin Proceed to the emergency room if symptoms worsen Patient Language: Kinyarwanda Prescriptions: New colchicine 0.6 mg capsule 0.6 mg PO DIRECTED Qty: 3 0RF Rx Instructions: Take 2 capsules (1.2mg) now, and take 1 capsule (0.6mg) 1 hour later methylprednisolone [Medrol (Adrian)] 4 mg tablets,dose pack See Rx Instructions .ROUTE .COMPLEX Qty: 21 0RF Rx Instructions: orally per package directions indomethacin 25 mg capsule 25 mg PO BID 5 Days Qty: 10 0RF Rx Instructions: administer with food or milk No Action prednisone 50 mg tablet 50 mg PO DAILY 5 Days Qty: 5 0RF tramadol 50 mg tablet Follow-up/Referrals: [place],Tres Hudson MD [Primary Care Provider] -
--- OUTSIDE RECORDS SUMMARY | 2024-07-23 13:10 | XMS_ITS | Encounter Summary ---
Author Organization [facility] Address [address] [place] [address]. [place], [place] [id number] [place] [id number] Care Team Providers Care Multi Share Program Coordinator Name Role Phone Andrew Walters MD Primary Care Provider Unavailable Andrew Walters MD Primary Care Provider Unavailable Encounter Details Date Type Department Care Team (Late st Contact Info) Description 12/09/1995 [place] [address] Andrew Walters MD Social History Tobacco Use Types Packs/Day Years Used Date Smoking Tobacco: Never Assessed Sex and Gender Information Value Date Recorded Sex Assigned at Not on file Legal Sex Male 11:46 PM CDT Gender Identity Not on file Sexual Orientation Not on file documented as of this encounter Plan of Treatment Not on file documented as of this encounter Visit Diagnoses Not on filedocumented in this encounter Care Teams Multi Share Program Coordinator Relationship Specialty Start Date End Date Andrew Walters MD PCP - General 09/22/12 Andrew Walters MD PCP - General 05/10/10 documented as of this encounter
--- OUTSIDE RECORDS SUMMARY | 2024-07-23 13:10 | XMS_ITS | Encounter Summary ---
Author Organization [facility] Address [address] [place] [address]. [place], [place] [id number] [place] [address] Care Team Providers Care Coremaker Machine Name Role Phone Andrew Walters MD Primary Care Provider Unavailable Andrew Walters MD Primary Care Provider Unavailable Encounter Details Date Type Department Care Team (Late st Contact Info) Description 12/02/1990 Abstract [place] [address] Andrew Walters MD Social History Tobacco Use [...] on filedocumented in this encounter Care Teams Coremaker Machine Relationship Specialty Start Date End Date Andrew Walters MD PCP - General 09/22/12 Andrew Walters MD PCP - General 05/10/10 documented as of this encounter
--- OUTSIDE RECORDS SUMMARY | 2024-07-23 13:10 | XMS_ITS | Encounter Summary ---
Author Organization [facility] Address [address] [place] [address]. [place], [place] [id number] [place] [address] Care Team Providers Care Dat Instructor Name Role Phone Andrew Walters MD Primary Care Provider Unavailable Andrew Walters MD Primary Care Provider Unavailable Encounter Details Date Type Department Care Team (Late st Contact Info) Description 09/08/2006 Abstract [place] [address] Marc Au MD Social History Tobacco Use Types Packs/Day [...] on filedocumented in this encounter Care Teams Dat Instructor Relationship Specialty Start Date End Date Andrew Walters MD PCP - General 09/22/12 Andrew Walters MD PCP - General 05/10/10 documented as of this encounter
--- OUTSIDE RECORDS SUMMARY | 2024-07-23 13:10 | XMS_ITS | Encounter Summary ---
Author Organization [facility] Address [address] [place] [address]. [place], [place] [id number] [place] [address] Care Team Providers Care Water Taxi Boat Mate Name Role Phone Andrew Walters MD Primary Care Provider Unavailable Andrew Walters MD Primary Care Provider Unavailable Encounter Details Date Type Department Care Team (Late st Contact Info) Description 10/17/2008 Abstract [facility] [place] [address] Marc Au MD Social History Tobacco Use [...] on filedocumented in this encounter Care Teams Water Taxi Boat Mate Relationship Specialty Start Date End Date Andrew Walters MD PCP - General 09/22/12 Andrew Walters MD PCP - General 05/10/10 documented as of this encounter
--- OUTSIDE RECORDS SUMMARY | 2024-07-23 13:10 | XMS_ITS | Continuity of Care Document ---
Author Organization [facility], [facility] Address [address] [address] Assessment No assessment recorded. Plan of Treatment Reminders Order Date Submit Date Provider Last Modified By Organization Details Last Modified Time Details Appointments ANY 15 025 07:30AM Tres Mccann, DO Not available Not available Not available Lab None record ed. Referral None record ed. Procedures None record ed. Surgeries None record ed. Imaging None record ed. Medication Orders None record ed. Patient TargetsNo targets recorded. Patient InstructionsNo instructions recorded. Reason for Referral None Reported. Results Created Date Observation Date Name Description Value Unit Range Abnormal Flag Note LastModifiedBy Organization Detail LastModifiedTime 07/16/20 24 07/16/2024 XR, foot, 3 or more view No observ ation record ed. candace Reyna [facility] [address], [place], [address], 07/18/2024 09:25:10 Result Notes None recorded. Problems Name Problem SNOMED Code Status Onset Date Resolution Date Notes Provider Name and Address Organization Details Recorded Time Adult health examination Active 2023 Tres Mccann DO Attn: Tati duque,[address] [facility], [place], [address], [facility] 4 08:43:56 Erectile dysfunction 295500755 Active 2023 Tres Mccann DO Attn: Tati duque,2040 [facility], [place], [address], [facility] 4 08:43:57 Morbid obesity 629899758 Active 2023 Tres Mccann DO Attn: Tati duque,2040 [facility], [place], [address], [place] [facility] 4 09:22:43 Osteoarthritis of knee 974768855 Active 2023 Tres Mccann DO Attn: Tati duque,2040 [facility], [place], [address], [place] [facility] 4 09:30:56 Post-discharge follow-up 195141239 Active 2023 Tres Mccann DO Attn: Tati duque,20[address] [facility], [place], [address], [place] [facility] 4 08:37:57 Problem Notes None recorded. Medical Equipment None Reported. Allergies Allergen ID Allergen Name Allergen Category Reaction Reaction Severity Criticality Documentation Date Start Date Code Code System Note Provider Name and Address Organization Details Recorded Time 788882 Zithromax medicatio n rash Not available Not available 03/24/2024 4 RxNorm Betty Reyes MA null, [place] [facility] 4 09:02:37 Medications Name Sig Start Date Stop Date Status Note LastModified by Organization Details LastModified Time cyclobenzap rine 10 mg tablet TAKE 1 TABLET BY MOUTH THREE TIMES A DAY NEEDED FOR MUSCLE SPASMS 03/24 completed Not Available Not Available Not Available prednisone 10 mg tablet Take 1 tablet every day by oral route for 4 days. 07/18 completed Not Available Not Available Not Available prednisone 5 mg tablet TAKE 1 TABLET (5 MG) BY MOUTH 2 (TWO) TIMES A DAY FOR 7 DAYS 07/18 completed Not Available Not Available Not Available tramadol 50 mg tablet TAKE 1 TABLET 3 TIMES A DAY BY ORAL ROUTE NEEDED. 07/18 completed Not Available Not Available Not Available sildenafil 100 mg tablet TAKE 1 TABLET BY MOUTH ONCE DAILY 03/24 completed Not Available Not Available Not Available ketorolac 10 mg tablet TAKE 1 TABLET BY MOUTH EVERY 6 HOURS NEEDED FOR PAIN. active Not Available Not Available No t Available meloxicam 7.5 mg tablet TAKE 1 TABLET BY MOUTH EVERY DAY 12/23 /2024 completed Not Available Not Available Not Available prednisone 50 mg tablet TAKE 1 TABLET BY MOUTH DAILY FOR 5 DAYS 07/18 completed Not Available Not Available Not Available methylpredn isolone 4 mg tablets in a dose pack FOLLOW PACKAGE DIRECTION S 03/24 completed Not Available Not Available Not Available tadalafil 20 mg tablet TAKE 1 TABLET BY MOUTH EVERY DAY NEEDED FOR ERECTILE DYSFUNCTI ON 03/24 completed Not Available Not Available Not Available Eliquis 5 mg tablet TAKE 1 TABLET BY MOUTH TWICE A DAY active Not Available Not Available No t Available Eliquis DVT-PE Treatment 30-Day Starter 5 mg (74 tablets) in dose pack FOLLOW PACKAGE DIRECTION S 04/18 completed Not Available Not Available Not Available Vitals Date Recorded Body height Body mass index (BMI) Body weight Oxygen saturation Oxygen saturation in Arterial blood by Pulse oximetry Heart rate Provider Name and Address Organization Details Last Updated DateTime 177.8 cm 39.2 kg/m2 484243. 82 g 98 % 98 % 57 /min Sunitha Saucedo MA [facility] 08:16:38 Date Recorded Systolic blood pressure Diastolic blood pressure Provider Name and Address Organization Details Last Updated DateTime 04/18/2024 134 mm[Hg] 84 mm[Hg] Tres Mccann DO Attn: Accounting,[address] [place], [address], [facility] 04/18/2024 08:37:53 Social History Question Answer Notes LastModified by Organizat ion Details LastModified Time Tobacco Smoking Status Never Smoker Betty Reyes MA null, [facility] 03/24/2024 09:03:31 What Is Your Level Of Alcohol Consumption? Occasional Information not available 03/24/2024 What Is Your Level Of Caffeine Consumption? Occasional Information not available 03/24/2024 What Was The Date Of Your Most Recent Tobacco Screening? 03/24/2024 Information not available 03/24/2024 Do You Use Any Illicit Or Recreational Drugs? No Information not available 03/24/2024 Has Tobacco Cessation Counseling Been Provided? No Information not available 03/24/2024 Do You Or Have You Ever Used Any Other Forms Of Tobacco Or Nicotine? No Information not available 03/24/2024 Sex: Unknown Functional Status None recorded. Mental Status None recorded. Family History Nothing Reported. Medical History Condition Response Coronary Artery Disease N Other N High Blood Pressure N Atrial Fibrillation N Kidney or Bladder Problems N Thyroid Problems N Depression N COPD N Blood Clots N GI Problems N Have you had a mammogram in the last yea r? N Skin Problems N Eating Disorder N Anemia N Heart Attack ([place]) N Anxiety Disorder N Diabetes N Muscle, Joint, or Bone Problems N Arthritis N Seizures/Epilepsy N Have you had a colonoscopy in the last 1 0 years? N Acid Reflux (GERD) N Cancer N Stroke N Asthma N Allergies N Have you had a PSA blood test in the las t year? N ADHD N Substance Abuse N High Cholesterol N Hepatitis N Liver Disease N Headaches N Schizophrenia N Osteoporosis N Heart Failure N Past Encounters Encounter ID Performer Location Encounter Start Date Encounter Closed Date Diagnosis/Indication Diagnosis SNOMED-CT Code Diagnosis ICD10 Code [id number] Tres Mccann DO [facility] [employer] [place] [address] [address] 03/24/2024 08:38:54 03/24/2024 10:33:33 Adult health examination 634483173 Z00.00 Erectile dysfunction 860 347689 F52.21 Morbid obesity 235951313 E66.01 Osteoarthr itis of knee 032025064 M17.9 Vitamin D deficiency 347 15169 E55.9 Screening for malignant neoplasm of prostate 051088255 Z12.5 [id number] Tres Mccann DO [facility] [employer] [place] [address] [address] 04/18/2024 07:53:02 04/18/2024 08:55:46 Post-discharge follow-up 215366448 Z09 Morbid obesity 936315995 E66.01 Osteoarthr itis of knee 643495379 M17.9 Health Concerns Section Related Observation LastModified by Organization Detai ls LastModified Time None Recorded Concern Status LastModified by Organization Details LastModified Time None Recorded Payers Encounter Date Sequence Insurance Name Policy Number Policy Verma Covered Member ID Verma Member ID Guarantor Name 04/18/2024 1 [facility]: (PPO[place] [id number] Mir Maharaj [id number] Mir Maharaj Notes Date Note Type Note Provider Name and Address Organization Details Recorded Time 04/18/2024 text/html er follow updischargehad right knee pain Tres Mccann DO Attn: Accounting,[address] [facility], [place], [address], [facility] [place] [facility] 04/18/2024 11:44:49
--- OUTSIDE RECORDS SUMMARY | 2024-07-23 13:10 | XMS_ITS | Encounter Summary ---
Author Organization [facility] Address [address] [place] [address]. [place], [place] [address] [place] [address] Care Team Providers Care Training Project Manager Name Role Phone Andrew Walters MD Primary Care Provider Unavailable Encounter Details Date Type Department Care Team (Late st Contact Info) Description 09/23/2012 Krista [facility] [address] [place] [address] Andrew Walters MD Social History Tobacco Use [...] on filedocumented in this encounter Care Teams Training Project Manager Relationship Specialty Start Date End Date Andrew Walters MD PCP - General 09/22/12 documented as of this encounter
--- OUTSIDE RECORDS SUMMARY | 2024-07-23 13:10 | XMS_ITS | Data Portability ---
Author Organization [facility] Address [address] [place] [address] Assessment No assessment recorded. Plan of Treatment Reminders Order Date Submit Date Provider Last Modified By Organization Details Last Modified Time Details Appointments ANY 15 2024 07:30A M Tres Mccann, DO Not available Not available Not available Lab PSA, total, serum or plasma [address] [facility], [address] [place], [address], 06/22/2024 12:04:05 vitamin D, 25-hydrox y, total, serum [address] [facility], [address] [place], [address], 06/22/2024 12:03:54 CBC w/ auto diff [address] [facility], [address] [place], [address], 06/22/2024 12:03:12 BMP, serum or plasma [address] [facility], [address] [place], [address], 06/22/2024 12:03:20 lipid panel, serum [address] [facility], [address] [place], [address], 06/22/2024 12:03:29 hepatic function panel, serum [address] [facility], [address] [place], [address], 06/22/2024 12:03:37 TSH + free T4, serum [address] [facility], [address] [place], [address], 06/22/2024 12:03:46 Referral None recorded. Procedures None recorded. Surgeries None recorded. Imaging None recorded. Medication Orders None recorded. Patient TargetsNo targets recorded. Patient Instructions Encounter Date Encounter Id Patient Instructions Last Modified By Organization Details Last Modified Time 03/24/2024 [id number] A healthy lifestyle: care instructions [email or web address] Not available 03/24/2024 09:22:45 Reason for Referral None Reported. Results Created Date Observation Date Name Description Value Unit Range Abnormal Flag Note LastModifiedBy Organization Detail LastModifiedTime 07/16/20 24 07/16/2024 XR, foot, 3 or more view No observ ation record ed. candace [facility] [address], [place], [address], 07/18/2024 09:25:10 Result Notes None recorded. Problems Name Problem SNOMED Code Status Onset Date Resolution Date Notes Provider Name and Address Organization Details Recorded Time Adult health examination Active 2023 Tres Mccann DO Attn: Tati duque,[address] [place], [address], [place] [facility] 4 08:43:56 Erectile dysfunction 571404945 Active 2023 Tres Mccann DO Attn: Tati duque,[address] [place], [address], [place] [facility] 4 08:43:57 Morbid obesity 923347848 Active 2023 Tres Mccann DO Attn: Tati duque,[address], [place], [address], [place] [facility] 4 09:22:43 Osteoarthritis of knee 379078204 Active 2023 Tres Mccann DO Attn: Tati duque,[address] [facility], [place], [address], [place] [facility] 4 09:30:56 Post-discharge follow-up 267824627 Active 2023 Tres Mccann DO Attn: Tati duque,[address] [facility], [place], [address], [place] [facility] 4 08:37:57 Problem Notes None recorded. Procedures Surgical History None recorded. Imaging Results Imaging Date Name Status LastModified by Organiz ation Details LastModified Time 07/16/2024 XR, foot, 3 or more view completed [facility] [address], [place], [address], 07/18/2024 09:25:10 Procedure Notes None recorded. Medical Equipment None Reported. Allergies Allergen ID Allergen Name Allergen Category Reaction Reaction Severity Criticality Documentation Date Start Date Code Code System Note Provider Name and Address Organization Details Recorded Time 029077 Zithromax medicatio n rash Not available Not available 03/24/2024 4 RxNorm Betty Reyes MA [facility], [place] - [facility] 4 09:02:37 Medications Name Sig Start Date [...] TAKE 1 TABLET BY MOUTH EVERY DAY 07/18 completed Not Available Not Available Not [...] Available Not Available Vitals Date Recorded Body weight Body mass index (BMI) Body height Provider Name and Address Organization Details Last Updated DateTime 03/24/2024 309476.13 g 40 kg/m2 177.8 cm Betty Reyes MA [facility] 03/24/2024 09:02:16 Date Recorded Systolic blood pressure Diastolic blood pressure Provider Name and Address Organization Details Last Updated DateTime 03/24/2024 136 mm[Hg] 82 mm[Hg] Tres Mccann DO Attn: Accounting,[address] [place], [address], [facility] 03/24/2024 09:29:18 Date Recorded Body height Body mass index (BMI) Body weight Oxygen saturation Oxygen saturation in Arterial blood by Pulse oximetry Heart rate Provider Name and Address Organization Details Last Updated DateTime 177.8 cm 39.2 kg/m2 543687. 82 g 98 % 98 % 57 /min Sunitha Saucedo MA [facility] 08:16:38 Date Recorded Systolic blood pressure Diastolic blood pressure Provider Name and Address Organization Details Last Updated DateTime 04/18/2024 134 mm[Hg] 84 mm[Hg] Tres Mccann DO Attn: Accounting,[address] [facility], [place], [address], [facility] 04/18/2024 08:37:53 Date Recorded Body height Body mass index (BMI) Body weight Provider Name and Address Organization Details Last Updated DateTime 07/18/2024 177.8 cm 39.1 kg/m2 213195.92 g Betty Reyes MA [facility] 07/18/2024 08:49:18 Date Recorded Systolic blood pressure Diastolic blood pressure Provider Name and Address Organization Details Last Updated DateTime 07/18/2024 132 mm[Hg] 82 mm[Hg] Tres Mccann DO Attn: Accounting,[address] [facility], [place], [address] 07/18/2024 09:06:36 Social History Question Answer Notes LastModified by Yasound ion Details LastModified Time Tobacco Smoking Status Never Smoker Betty Reyes MA null, [facility] 03/24/2024 09:03:31 What Is Your Level [...] High Blood Pressure N Atrial Fibrillation N Thyroid Problems N Kidney or Bladder Problems N GI Problems N Depression N COPD N Blood Clots N Have you had a mammogram in the last yea r? N Skin Problems N Eating Disorder N Anemia N Heart Attack ([place]) N Anxiety Disorder N Diabetes N Muscle, [...] Cholesterol N Hepatitis N Liver Disease N Schizophrenia N Headaches N Heart Failure N Osteoporosis N Past Encounters Encounter ID Performer Location Encounter Start Date Encounter Closed Date Diagnosis/Indication Diagnosis SNOMED-CT Code Diagnosis ICD10 Code [id number] Tres Mccann, DO [facility] [place] [facility] [place] [address] [address] 03/24/2024 08:38:54 03/24/2024 10:33:33 Adult health examination 656764455 Z00.00 Erectile dysfunction 860 412259 F52.21 Morbid obesity 982204276 E66.01 Osteoarthr itis of knee 997943678 M17.9 Vitamin D deficiency 347 95198 E55.9 Screening for malignant neoplasm of prostate 080751067 Z12.5 [id number] Tres Mccann, DO [facility] [place] [address] [address] 04/18/2024 07:53:02 04/18/2024 08:55:46 Post-discharge follow-up 846083912 Z09 Morbid obesity 114585257 E66.01 Osteoarthr itis of knee 812399976 M17.9 [id number] Tres Mccann, DO [facility] [place] [address] [address] 07/18/2024 08:42:56 07/18/2024 09:55:43 Osteoarthritis of knee 441916557 M17.9 Morbid obesity 176011945 E66.01 Erectile dysfunction 860 718971 F52.21 Post-disch arge follow-up 140282624 Z09 Adult [facility] th examination 806797864 Z00.00 Health Concerns Section Related Observation LastModified by Organization Detai ls LastModified Time None Recorded Concern Status LastModified by Organization Details LastModified Time None Recorded Advance Directives Directive None Recorded Payers Encounter Date Sequence Insurance Name Policy Number Policy Verma Covered Member ID Verma Member ID Guarantor Name 03/24/2024 1 [employer] [id number] Mir Davidgge [id number] Mir Lugge 04/18/2024 1 [place] [id number] Mir L Lugge [id number] Mir Lugge 07/18/2024 1 [place] [id number] Mir Davidgge [id number] Mir Lugge Notes Date Note Type Note Provider Name and Address Organization Details Recorded Time 03/24/2024 text/html Establish [facility] Tres Mccann DO Attn: Accounting,[address] [place], [address], [place] [facility] 03/24/2024 19:42:23 04/18/2024 text/html er follow updischargehad right knee pain Tres Mccann DO Attn: Accounting,[address] [place], [address], [place] 04/18/2024 11:44:49 07/18/2024 text/html routine follow u phad a fx of the wrist Tres Mccann DO Attn: Accounting,[address] [place], [address], [place] [facility] 07/18/2024 09:55:10
--- OUTSIDE RECORDS SUMMARY | 2024-07-23 13:10 | XMS_ITS | Encounter Summary ---
Author Organization [facility] Address Count includes the [facility]. [place], [place] [address] [place] [address] Care Team Providers Care Splicer Machine Operator Name Role Phone Andrew Walters MD Primary Care Provider Unavailable Andrew Walters MD Primary Care Provider Unavailable Encounter Details Date Type Department Care Team (Late st Contact Info) Description 10/03/2004 Abstract [facility] [place] [address] Tres Au, DO [address] [place] [id number] Social History Tobacco Use Types Packs/Day Years [...] on filedocumented in this encounter Care Teams Splicer Machine Operator Relationship Specialty Start Date End Date Andrew Walters MD PCP - General 09/22/12 Andrew Walters MD PCP - General 05/10/10 documented as of this encounter
--- OUTSIDE RECORDS SUMMARY | 2024-07-23 13:10 | XMS_ITS | Clinical Summary ---
Author Organization [facility] Address [address] [place] [address]. [place], [place] [address] [place] [address] Care Team Providers Care Clutch Operator Name Role Phone Unavailable Primary Care Provider Unavailabl e Social History Tobacco Use Types Packs/Day Years Used Date Smoking Tobacco: Never Assessed Sex and Gender Information Value Date Recorded Sex Assigned at Not on file Legal Sex Male 11:46 PM CDT Gender Identity Not on file Sexual Orientation Not on file Plan of Treatment Health Maintenance Due Date Last Done Comments Colorectal Cancer Screening Colonoscopy (10 Years) 1960 Annual Physical 1963 Hepatitis C 1978 DTaP, Tdap and Td Vaccines ( 1 - Tdap) 1979 Zoster Vaccines (1 of 2) 2010 COVID-19 Vaccine (2023-2 5 season) 2024 Influenza Adult (#1) 2024 RSV Immunization or 60+ Years (1 - 1-dose 75+ series) 2035 Meningococcal Vaccine Aged Out No rosita frandy eligible based on patient's age to complete this topic Pneumococcal Vaccine: Pediat rics (0 to 5 Years) and At-Risk Patients (6 to 64 Years) Aged Out No longer eligible b ased on patient's age to complete this topic RSV Immunizations Under 20 Months Aged Out No longer eligible based on patient's age to complete this topic
--- OUTSIDE RECORDS SUMMARY | 2024-07-23 13:10 | XMS_ITS | Encounter Summary ---
Author Organization [facility] Address [facility]. [place], [place] [address] [place] [address] Care Team Providers Care Fleet Administrator Name Role Phone Andrew Walters MD Primary Care Provider Unavailable Andrew Walters MD Primary Care Provider Unavailable Encounter Details Date Type Department Care Team (Late st Contact Info) Description 05/10/2010 [facility] [place] [facility] [address] [facility] [place] [address] Swapnil Jones MD [address] [address] Social History Tobacco Use Types Packs/Day Years Used Date Smoking Tobacco: Never Assessed Sex and Gender Information Value Date Recorded Sex Assigned at Not on file Legal Sex Male 11:46 PM CDT Gender Identity Not on file Sexual Orientation Not on file documented as of this encounter Plan of Treatment Not on file documented as of this encounter Visit Diagnoses Diagnosis Acute pharyngitis documented in this encounter Care Teams Fleet Administrator Relationship Specialty Start Date End Date Andrew Walters MD PCP - General 09/22/12 Andrew Walters MD PCP - General 05/10/10 documented as of this encounter
--- OUTSIDE RECORDS SUMMARY | 2024-07-23 13:10 | XMS_ITS | Patient Health Record ---
Author Organization [facility] Address [address] [facility] [address] [place] [address] Care Team Providers Care Fire Sprinkler Designer Name Role Phone Tres Au Primary Care Provider Bernadine Chandra Unavailable [phone] Allergies No Known Allergies Reason For Referral No Information Medications Medication SIG (Take, Route, Frequency, Duration) Notes Start Date End Date Status Meloxicam Active Social History Tobacco Use: Social History Observation Description Date Details (start date - stop date) Never Smoker NA - NA Tobacco Use/Smoking Question Answer Notes Are you a nonsmoker Plan Of Treatment No Information Insurance Providers Payer Name Payer Address Payer Phone Subscriber Number Group Number Insured Name Patient Relationship to Insured Coverage Start Date Coverage End Date [facility] [address] [place] [address] [phone] [id number] Mir Maharaj Self - patient is the insured Medical (General) History Medical History History ICD Code arthritis, gout, high cholesterol Surgical History Surgery Date(Month/Year)
--- OUTSIDE RECORDS SUMMARY | 2024-07-23 13:10 | XMS_ITS | Encounter Summary ---
Author Organization [facility] Address [address] [place] [address]. [place], [place] [address] [place] [address] Care Team Providers Care Fisheries Biologist Name Role Phone Andrew Walters MD Primary Care Provider Unavailable Andrew Walters MD Primary Care Provider Unavailable Encounter Details Date Type Department Care Team (Late st Contact Info) Description 12/02/1995 [place] [address] Andrew Walters MD Social History Tobacco Use [...] on filedocumented in this encounter Care Teams Fisheries Biologist Relationship Specialty Start Date End Date Andrew Walters MD PCP - General 09/22/12 Andrew Walters MD PCP - General 05/10/10 documented as of this encounter
--- OUTSIDE RECORDS SUMMARY | 2024-07-23 13:10 | XMS_ITS | Encounter Summary ---
Author Organization [facility] Address [address] [place] [address]. [place], [place] [id number] [place] [address] Care Team Providers Care Mixing And Molding Machine Operator Name Role Phone Andrew Walters MD Primary Care Provider Unavailable Andrew Walters MD Primary Care Provider Unavailable Encounter Details Date Type Department Care Team (Late st Contact Info) Description 06/02/[address] [facility] [place] [address] Marc Au MD Social History Tobacco Use [...] on filedocumented in this encounter Care Teams Mixing And Molding Machine Operator Relationship Specialty Start Date End Date Andrew Walters MD PCP - General 09/22/12 Andrew Walters MD PCP - General 05/10/10 documented as of this encounter
--- OUTSIDE RECORDS SUMMARY | 2024-07-23 13:10 | XMS_ITS | Encounter Summary ---
Author Organization [facility] Address [address] [place] [address]. [place], [place] [id number] [place] [address] Care Team Providers Care Car Oiler Name Role Phone Andrew Walters MD Primary Care Provider Unavailable Andrew Walters MD Primary Care Provider Unavailable Encounter Details Date Type Department Care Team (Late st Contact Info) Description 07/08/[address] [facility] [place] [address] Marc Au MD Social History Tobacco Use [...] on filedocumented in this encounter Care Teams Car Oiler Relationship Specialty Start Date End Date Andrew Walters MD PCP - General 09/22/12 Andrew Walters MD PCP - General 05/10/10 documented as of this encounter
--- OUTSIDE RECORDS SUMMARY | 2024-07-23 13:10 | XMS_ITS | Encounter Summary ---
Author Organization [facility] Address [address] [place] [address]. [place], [place] [id number] [place] [address] Care Team Providers Care Photogrammetry Airplane Pilot Name Role Phone Andrew Walters MD Primary Care Provider Unavailable Encounter Details Date Type Department Care Team (Late st Contact Info) Description 09/23/2012 Abstract [facility] AT [address] [address] Andrew Walters MD Social History Tobacco Use [...] on filedocumented in this encounter Care Teams Photogrammetry Airplane Pilot Relationship Specialty Start Date End Date Andrew Walters MD PCP - General 09/22/12 documented as of this encounter
--- OUTSIDE RECORDS SUMMARY | 2024-07-23 13:10 | XMS_ITS | Encounter Summary ---
Author Organization [facility] Address [address] [place] [address]. [place], [place] [address] [place] [address] Care Team Providers Care Limnologist Name Role Phone Andrew Walters MD Primary Care Provider Unavailable Encounter Details Date Type Department Care Team (Late st Contact Info) Description 09/22/2012 Emergency [facility] [place] [address] Andrew Walters MD Social History Tobacco Use [...] as of this encounter Visit Diagnoses Diagnosis Other chest pain documented in this encounter Care Teams Limnologist Relationship Specialty Start Date End Date Andrew Walters MD PCP - General 09/22/12 documented as of this encounter
--- OUTSIDE RECORDS SUMMARY | 2024-07-23 13:11 | XMS_ITS | Encounter Summary ---
Author Organization [facility] Address [address] [place] [address] Care Team Providers Care Rail Transit Operator Name Role Phone Tres Mccann DO Primary Care Provider + Reason for Visit * Reason Onset Date Comments Medical Question/Miscellaneous 01/30/2023 Encounter Details Date Type Department Care Team (Late st Contact Info) Description 01/30/2023 Telephone [facility] Family Medicine [address] [place] [address] Tres Mccann DO [address] [facility] [address] [place] [address] Medical Question/Miscellaneous Social History Tobacco Use Types Packs/Day Years Used Date Smoking Tobacco: Former Smokeless Tobacco: Never Alcohol Use Standard Drinks/Week Comments Not Currently 0 (1 standard drink = 0.6 oz pur e alcohol) AUDIT-C Answer Date Recorded Q1: How often do you have a drink containing alc ohol? Monthly or less 2022 Q2: How many drinks containi ng alcohol do you have on a typical day when you are drinking? 1 or 2 2022 Q3: How often do you have si x or more drinks on one occasion? 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 Patient confirmed he will keep his appt. Omn 02/03 @ 8:30am Caller???s Call back #: [phone] Does message need to be routed? No documented in this encounter Plan of Treatment Not on file documented as of this encounter Visit Diagnoses Not on filedocumented in this encounter Care Teams Rail Transit Operator Relationship Specialty Start Date End Date Tres Mccann DO PCP - General Family Medicine 02/24/19 documented as of this encounter
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
--- OUTSIDE RECORDS SUMMARY | 2024-07-23 13:11 | XMS_ITS | Encounter Summary ---
Author Organization [facility] Healthcare Address [address] [place] [address] Care Team Providers Care Power Screwdriver Operator Name Role Phone Tres Mccann DO Primary Care Provider + Encounter Details Date Type Department Care Team (Late st Contact Info) Description 06/01/2024 9:45 AM ASTRO TECHNICIAN Ancillary Procedure [facility] Hand Surgery [address] [place] [address] Social History Tobacco Use Types Packs/Day Years Used Date Smoking Tobacco: Former Smokeless Tobacco: Never Alcohol Use Standard Drinks/Week Comments Not Currently 0 (1 standard drink = 0.6 oz pur e alcohol) AUDIT-C Answer Date Recorded Q1: How often do you have a drink containing alc ohol? 2-4 times a month 05/19/2023 Q2: How many drinks containi ng alcohol do you have on a typical day when you are drinking? 1 or 2 05/19/2023 Frequency of Binge Drinking Not on file 04/27 PHQ-2 Answer Date Recorded PHQ-2 Total Score (If total score is 3 or more points, staff should administer the PHQ-9) 0 05/19/2023 Personal Safety Answer Date Recorded Have you ever been in or are you currently in a harmful physical or emotional relationship or is someone making you feel afraid or unsafe? Denies 05/29/2024 Sex and Gender Information Value Date Recorded Sex Assigned at Not on file Legal Sex Male 6:55 PM ASTRO TECHNICIAN Gender Identity Not on file Sexual Orientation Not on file documented as of this encounter Plan of Treatment Not on file documented as of this encounter Procedures Procedure Name Priority Date/Time Associated Diagnosis Comments XR WRIST RIGHT 3 OR MORE VIEWS Schedule Routine, Read Routine (OP Routine) 06/01/2024 12:14 PM ASTRO TECHNICIAN Right hand pain documented in this encounter Results * XR Wrist Right 3 or More Views (06/01/2024 12:14 PM ASTRO TECHNICIAN) Anatomical Region Laterality Modality Upper Extremities, Wrist Right Compute d Radiography Narrative 06/01/2024 12:14 PM ASTRO TECHNICIAN AP lateral and oblique x-rays of the right wrist on the mini C-arm show posttraumatic changes at the distal radius and what appears to be an acute radial styloid fracture us Eren Garcia MD IMG XR PROCEDURES Final Result documented in this encounter Visit Diagnoses Not on filedocumented in this encounter Care Teams Power Screwdriver Operator Relationship Specialty Start Date End Date Tres Mccann DO PCP - General Family Medicine 02/24/19 documented as of this encounter
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
--- OUTSIDE RECORDS SUMMARY | 2024-07-23 13:11 | XMS_ITS | Encounter Summary ---
Author Organization [facility] Address [address] [place] [address] Care Team Providers Care Snuff Grinder Name Role Phone Tres Mccann DO Primary Care Provider + Reason for Visit * Reason Comments Wrist Injury Encounter Details Date Type Department Care Team (Late st Contact Info) Description 05/29/2024 7:16 AM BRASS PICKLER - 05/29/2024 8:31 AM [facility] Emergency [address] [address] Injury of right wrist, initial encounter (Primary Dx) Discharge Disposition: Discharge to home or self care Social History Tobacco Use Types Packs/Day Years [...] on file Legal Sex Male 6:55 PM BRASS PICKLER Gender Identity Not on file Sexual Orientation Not on file documented as of this encounter Last Filed Vital Signs Vital Sign Reading Time Taken Comments Blood Pressure 172/95 05/29/2024 6:03 AM BRASS PICKLER Pulse 84 05/29/2024 6:03 AM BRASS PICKLER Temperature 36.4 ??C (97.5 ??F) 05/29/2024 6:03 AM CS T Respiratory Rate 20 05/29/2024 6:03 AM BRASS PICKLER Oxygen Saturation 96% 05/29/2024 6:03 AM BRASS PICKLER Inhaled Oxygen Concentration - - Weight 125 kg (275 lb 9.2 oz) 05/29/2024 6:03 AM BRASS PICKLER Height 177.8 cm (5' 10 ) 05/29/2024 6:03 AM BRASS PICKLER Body Mass Index 39.54 05/29/2024 6:03 AM BRASS PICKLER documented in this encounter Discharge Instructions * Attachments The following attachments cannot be sent through Care Everywhere. * Wrist Sprain (AfterCare(R) Instructions(ER/ED)) (Japanese) documented in this encounter Medications at Time of Discharge meloxicam (MOBIC) 7.5 mg tablet TAKE 1 TABLET BY MOUTH EVERY DAY 90 tablet 08/03/2023 traMADoL (ULTRAM) 50 mg tablet Take 1 tablet (50 mg total) by mouth every 6 (six) hours as needed for pain 8 tablet 05/29/2024 documented as of this encounter Ordered Prescriptions Prescription Sig Dispense Quantity Refills Last Filled Start Date End Date traMADoL (ULTRAM) 50 mg tablet Take 1 tablet (50 mg total) by mouth every 6 (six) hours as needed for pain 8 tablet 05/29/2024 ketorolac (TORADOL) 10 mg tablet Take 1 tablet (10 mg total) by mouth every 6 (six) hours as needed for pain 20 tablet 05/29/2024 05/29/2024 traMADoL (ULTRAM) 50 mg tablet Take 1 tablet (50 mg total) by mouth every 6 (six) hours as needed for pain 8 tablet 05/29/2024 05/29/2024 documented in this encounter Discharge Disposition Disposition Code Departure Means Destination Comment s Discharge to home or self care documented in this encounter ED Notes * Albina Conrad PA - 05/29/2024 7:32 AM CST CHIEF COMPLAINT: Chief Complaint Patient presents with Wrist Injury HPI 7:49 AM Mir Maharaj is a 64 y.o. male presenting to the ED c/o right wrist pain that started yesterday after falling onto outstretched hand. He states he was able to move his wrist last night after the injury but woke up today and noticed increased swelling and pain and unable to move wrist due to swelling and pain. No other complaints reported. PCP: Tres Mccann DO PAST MEDICAL HISTORY Past Medical History: Diagnosis Date Arthritis Gout PAST SURGICAL HISTORY No past surgical history on file. FAMILY HISTORY Family History Problem Relation Age of Onset No Known Problems Mother Diabetes Father Heart disease Father Other (siblings - liver cancer, lung cancer) Other MEDICATIONS GIVEN IN THE ED Medications acetaminophen (TYLENOL) tablet 975 mg (has no administration in time range) CURRENT HOME MEDICATIONS Current Facility-Administered Medications: acetaminophen (TYLENOL) tablet 975 mg, 975 mg, oral, Q6H PRN, Pauline Mckeon MD Current Outpatient Medications: cyclobenzaprine (FLEXERIL) 10 mg tablet, Take 1 tablet (10 mg total) by mouth 3 (three) times a dayas needed for muscle spasms, Disp: 30 tablet, Rfl: 0 ketorolac (TORADOL) 10 mg tablet, Take 1 tablet (10 mg total) by mouth every 6 (six) hours as needed for pain, Disp: 20 tablet, Rfl: 0 meloxicam (MOBIC) 7.5 mg tablet, TAKE 1 TABLET BY MOUTH EVERY DAY, Disp: 90 tablet, Rfl: 0 tadalafiL (CIALIS) 20 mg tablet, Take 1 tablet (20 mg total) by mouth daily as needed for erectile dysfunction, Disp: 5 tablet, Rfl: 0 traMADoL (ULTRAM) 50 mg tablet, Take 1 tablet (50 mg total) by mouth every 6 (six) hours as needed for pain, Disp: 8 tablet, Rfl: 0 ALLERGIES Allergies Allergen Reactions Azithromycin Rash SOCIAL HISTORY Social History Tobacco Use Smoking status: Former Smokeless tobacco: Never Substance and Sexual Activity Drug use: Yes Types: Alcohol Comment: occasionally Sexual activity: Not on file Alcohol Use: Unknown (05/19/2023) AUDIT-C Frequency of Alcohol Consumption: 2-4 times a month Average Number of Drinks: 1 or 2 Frequency of Binge Drinking: Not on file PHYSICAL EXAM TRIAGE VITAL SIGNS: ED Triage Vitals [05/29/24 0603] Temp Pulse Resp BP SpO2 36.4 ??C (97.5 ??F) 84 20 (!) 172/95 96 % Temp src Heart Rate Source Patient Position BP Location FiO2 (%) Oral Monitor Sitting Left arm -- Height Height Method Weight Weight Method 1.778 m (5' 10 ) Stated 125 kg (275 lb 9.2 oz) Standing scale Physical Exam Vitals and nursing note reviewed. Constitutional: General: He is not in acute distress. Appearance: He is well-developed. HENT: Head: Normocephalic and atraumatic. Eyes: Conjunctiva/sclera: Conjunctivae normal. Cardiovascular: Rate and Rhythm: Normal rate and regular rhythm. Heart sounds: No murmur heard. Pulmonary: Effort: Pulmonary effort is normal. No respiratory distress. Breath sounds: Normal breath sounds. Musculoskeletal: General: No swelling. Right wrist: Swelling and tenderness present. No deformity. Decreased range of motion (due to pain/swelling). Normal pulse. Cervical back: Neck supple. Comments: Able to wiggle fingers, brisk cap refill to all fingers Skin: General: Skin is warm and dry. Capillary Refill: Capillary refill takes less than 2 seconds. Neurological: Mental Status: He is alert. Psychiatric: Mood and Affect: Mood normal. LABS Labs Reviewed - No data to display RADIOLOGY XR WRIST RIGHT 3 OR MORE VIEWS Impression: No acute osseous abnormality. ED COURSE/MEDICAL DECISION MAKING Differential diagnosis included but not limited to wrist fracture, wrist sprain, contusion Patient's medical records were reviewed. Pt is a 64yo male presenting to the ED c/o right wrist pain that started yesterday after falling onto outstretched hand. He states he was able to move his wrist last night after the injury but woke up today and noticed increased swelling and pain and unable to move wrist due to swelling and pain. No other complaints reported. Physical exam is noted above. XR unremarkable. Wrist brace applied and I sent him home with medication to take as needed for pain and instructed him to f/u with ortho and his PCP. Strict return precautions given. Pt expressed understanding. Procedures FINAL IMPRESSION Injury of right wrist, initial encounter DISPOSITION: Home All findings were discussed with patient. Pt agreeable with plan. Non toxic appearing, vitals stable. Patient stable for discharge home. Given return to ER precautions Close outpatient follow-up with a low threshold to return has been mandated, concerning symptoms have been emphasized in detail, and this patient expresses understanding PATIENT INSTRUCTED TO FOLLOW UP Tres Mccann, DO [address] [facility] [address] [facility] [address] Eren Garcia MD [address] [facility] [address] [facility] [address] DISCHARGE MEDICATIONS Your medication list START taking these medications Instructions Last Dose Given Next Dose Due ketorolac 10 mg tablet Commonly known as: TORADOL Take 1 tablet (10 mg total) by mouth every 6 (six) hours as needed for pain traMADoL 50 mg tablet Commonly known as: ULTRAM Take 1 tablet (50 mg total) by mouth every 6 (six) hours as needed for pain ASK your doctor about these medications Instructions Last Dose Given Next Dose Due cyclobenzaprine 10 mg tablet Commonly known as: FLEXERIL Take 1 tablet (10 mg total) by mouth 3 (three) times a day as needed for muscle spasms meloxicam 7.5 mg tablet Commonly known as: MOBIC TAKE 1 TABLET BY MOUTH EVERY DAY tadalafiL 20 mg tablet Commonly known as: CIALIS Take 1 tablet (20 mg total) by mouth daily as needed for erectile dysfunction Where to Get Your Medications These medications were sent to [place] [address] [facility] [address] [facility] [address] [facility] [address] ketorolac 10 mg tablet traMADoL 50 mg tablet This examination was transcribed using the MModal computerized voice recognition system without human web press operator helper offset. In an effort to expedite patient care, this report has not been adjusted for typographical, grammatical, and syntax by a trained medical specialist. Albina Conrad PA 05/29/24 0749 Cosigned by Asya Barnett MD at 05/29/2024 4:51 PM BRASS PICKLER S PICKLER S PICKLER * Eloina Arroyo RN - 05/29/2024 6:06 AM CST Pt presents to the ED for right wrist pain. Pt states he fell yesterday landing on his hands. Pt states he has broken this wrist in the past. Pain has gotten worse since the injury. Tylenol SENIOR BUSINESS ANALYST with some relief. Decreased ROM in the wrist. Denies numbness/tingling in the hand and fingers. S PICKLER documented in this encounter Plan of Treatment Not on file documented as of this encounter Procedures Procedure Name Priority Date/Time Associated Diagnosis Comments XR WRIST RIGHT 3 OR MORE VIEWS ED 05/29/2024 7:02 AM [facility] PICKLER documented in this encounter Results * XR Wrist Right 3 or More Views (05/29/2024 7:02 AM BRASS PICKLER) Anatomical Region Laterality Modality Upper Extremities, Wrist Right Compute d Radiography 05/29/2024 7:05 AM [facility] PICK[facility]ER Narrative 05/29/2024 7:07 AM [facility]ICK[facility]ER EXAM DESCRIPTION: XR WRIST RIGHT 3 OR MORE VIEWS REASON FOR STUDY: Pain, Upper Extremity Injury or Trauma ?? Pt presents to the ED for right wrist pain. Pt states he fell yesterday landing on his hands. Pt states he has broken this wrist in the past. Pain has gotten worse since the injury. Tylenol SENIOR BUSINESS ANALYST with some relief. Decreased ROM in the wrist. Denies ?? numbness/tingling in the hand and fingers. ? TECHNIQUE: Three ??radiographic views of the ??right wrist . COMPARISON: Plain films of the right wrist of April 14, 2021. FINDINGS: BONES: ??There is no cortical discontinuity or trabecular irregularity to suggest fracture. ?? There is mild degenerative change seen of the intercarpal articulations. ??Bones are otherwise in normal alignment. SOFT TISSUES: ??The soft tissues are unremarkable. IMPRESSION: No acute osseous abnormality. THIS IS AN ELECTRONICALLY VERIFIED FINAL REPORT 05/29/2024 7:07 AM - Electronically signed by ??Asya Santillan M.D. SN D: ??05/29/2024 7:07 AM T: Report ID: [id number] Reading Location: ??[id number] Procedure Note Aysa Santillan MD - 05/29/2024 EXAM DESCRIPTION: XR WRIST RIGHT 3 OR MORE VIEWS REASON FOR STUDY: Pain, Upper Extremity Injury or Trauma Pt presents to the ED for right wrist pain. Pt states he fell yesterday landing on his hands. Pt states he has broken this wrist in the past. Painhas gotten worse since the injury. Tylenol SENIOR BUSINESS ANALYST with some relief. Decreased ROMin the wrist. Denies numbness/tingling in the hand and fingers. TECHNIQUE: Three radiographic views of the right wrist . COMPARISON: Plain films of the right wrist of April 14, 2021. FINDINGS: BONES: There is no cortical discontinuity or trabecular irregularity to suggest fracture. There is mild degenerative change seenof the intercarpal articulations. Bones are otherwise in normal alignment. SOFT TISSUES: The soft tissues are unremarkable. IMPRESSION: No acute osseous abnormality. THIS IS AN ELECTRONICALLY VERIFIED FINAL REPORT 05/29/2024 7:07 AM - Electronically signed by Asya Santillan M.D. SN T: Report ID: [id number] Reading Location: [id number] Pauline Mckeon MD IMG XR PROCEDURES Final Result documented in this encounter Visit Diagnoses Diagnosis Injury of right wrist, initial encounter- Primary documented in this encounter Administered Medications Inactive Administered Medications - up to 3 most recent administrations Medication Order MAR Action Action Date Dose Rate Site acetaminophen (TYLENOL) tablet 975 mg 975 mg (rounded from 1,000 mg), oral, Every 6 hours PRN, 1st line for pain, Contact provider if contraindication to acetaminophen or if pain unrelieved after 2 doses., Starting on 05/29/24 at 0609, For 2 doses, Do not administer if patient has taken greater than 3g of acetaminophen in the past 24 hours. Do not administer if patient has history of liver disease., Indications: Pain, Upper Extremity TraumaIndications:Pain,Upper Extremity Trauma traMADoL (ULTRAM) tablet 50 mg 50 mg, oral, Once, On 05/29/24 at 0754, For 1 dose Given 05/29/2024 7:57 AM BRASS PICKLER 50 mg documented in this encounter Discontinued Medications Medication Sig Discontinue Reason Start Date End Da te ketorolac (TORADOL) 10 mg tablet Take 1 tablet (10 mg total) by mouth every 6 (six) hours as needed for pain 05/29/2024 05/29/2024 traMADoL (ULTRAM) 50 mg tablet Take 1 tablet (50 mg total) by mouth every 6 (six) hours as needed for pain 05/29/2024 05/29/2024 documented as of this encounter Active and Recently Administered Medications Due to Daylight Saving Time, this section may contain times in both CDT and BRASS PICKLER. Scheduled Medication Order 05/27/2024 05/28/2024 05/29/2024 traMADoL (ULTRAM) tablet 50 mg (COMPLETED) 50 mg, oral, Once, On 05/29/24 at 0754, For 1 dose 0757 (Given - Provid er: González Valdivia RN) PRN Medication Order 05/27/2024 05/28/2024 05/29/2024 acetaminophen (TYLENOL) tablet 975 mg 975 mg (rounded from 1,000 mg), oral, Every 6 hours PRN, 1st line for pain, Contact provider if contraindication to acetaminophen or if pain unrelieved after 2 doses., Starting on 05/29/24 at 0609, For 2 doses, Do not administer if patient has taken greater than 3g of acetaminophen in the past 24 hours. Do not administer if patient has history of liver disease., Indications: Pain, Upper Extremity Trauma documented in this encounter Orders Medications Ordered That Carlos ht Not Have Been Administered Count Last Ordered Date First Ordered Date acetaminophen (TYLENOL) tablet 975 mg 1 09/2023 documented in this encounter Care Teams Snuff Grinder Relationship Specialty Start Date End Date Tres Mccann DO PCP - General Family Medicine 02/24/19 documented as of this encounter
--- OUTSIDE RECORDS SUMMARY | 2024-07-23 13:11 | XMS_ITS | Encounter Summary ---
Author Organization [facility] Healthcare Address [address] [place] [address] Care Team Providers Care Full Time Paramedic Name Role Phone Tres Mccann DO Primary Care Provider + Reason for Visit * Reason Onset Date Comments work statement 05/22/2021 Encounter Details Date Type Department Care Team (Late st Contact Info) Description 05/22/2021 Telephone [facility] [address] [facility] 3[address] [place] [address] Cecelia June work statement Social History Tobacco Use Types Packs/Day Years Used Date Smoking Tobacco: Former Smokeless Tobacco: Never Alcohol Use Standard Drinks/Week Comments Not Currently 0 (1 standard drink = 0.6 oz pur e alcohol) PHQ-2 Answer Date Recorded PHQ-2 Total Score 0 03/19/2021 Sex and Gender Information Value Date Recorded Sex Assigned at Not on file 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 Verbalized understanding * Telephone Encounter - Cecelia June - 05/22/2021 10:34 AM CDT Patient needing a work statement for work to go back to work 05-28-21. Please fax work statement to Nadeem Fleming fax [phone] Mirna Merida [facility] [place] in this encounter Plan of Treatment Not on file documented as of this encounter Visit Diagnoses Not on filedocumented in this encounter Care Teams Full Time Paramedic Relationship Specialty Start Date End Date Tres Mccann DO PCP - General Family Medicine 02/24/19 documented as of this encounter
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
--- OUTSIDE RECORDS SUMMARY | 2024-07-23 13:11 | XMS_ITS | Encounter Summary ---
Author Organization [facility] Healthcare Address [address] [place] [address] Care Team Providers Care Interactive Account Manager Name Role Phone [place] ColonyTres Marmolejo DO Primary Care Provider + Reason for Visit * Reason Comments Pain Encounter Details Date Type Department Care Team (Late st Contact Info) Description 06/01/2024 9:45 AM EMS DIRECTOR Office Visit [facility] Hand Surgery [address] [place] [address] [place] [phone] Eren Garcia MD [address] [place] [phone] Right hand pain (Primary Dx); Other closed intra-articular fracture of distal end of right radius, initial encounter Social History Tobacco Use Types Packs/Day Years [...] on file Legal Sex Male 6:55 PM EMS DIRECTOR Gender Identity Not on file Sexual Orientation Not on file documented as of this encounter Ordered Prescriptions Prescription Sig Dispense Quantity Refills Last Filled Start Date End Date predniSONE (DELTASONE) 5 mg tabletIndications: Right hand pain Take 1 tablet (5 mg) by mouth 2 (two) times a day for 7 days 14 tablet 06/01/2024 06/08/2024 predniSONE (DELTASONE) 5 mg tabletIndications: Right hand pain Take 1 tablet (5 mg) by mouth 2 (two) times a day for 7 days 14 tablet 06/01/2024 06/01/2024 documented in this encounter Progress Notes * Eren Garcia MD - 06/01/2024 9:45 AM CSTAssociated Order(s): Ortho Casting/Splinting Documentation Pre-Procedure Diagnose(s): Other closed intra-articular fracture of distal end of right radius, initial encounter Post-Procedure Diagnose(s): Other closed intra-articular fracture of distal end of right radius, initial encounter Images from the original note were not included. Patient ID: Mir Maharaj is a 64 y.o. male. Visit Date: 06/01/2024 Chief Complaint: Right wrist injury HPI: This 64 y.o. male is seen in consultation from Tres Mccann, * to see and evaluate this [id number] male who states he did have a prior injury to the ipsilateral wrist in the past but comes in after a fall on the 29 of May recently and since then 7/10 pain associated with thewrist. He reports no neck or elbow pain no numbness paresthesias no loss of function of the digits of the right hand. No history of smoking inflammatory arthritis thyroid dysfunction or diabetes. Past Medical History: Diagnosis Date Arthritis Gout History reviewed. No pertinent surgical history. Allergies Allergen Reactions Azithromycin Rash Physical Exam: His gait is within normal limits. His mood and affect are appropriate. He is well nourished. He is alert and oriented to time and place. He has moderate swelling at the wrist and hand with soft compartments otherwise and active flexion extension of the digits of the right hand. His skin is intact otherwise with good perfusion to his right hand. His motor strength stability of the wrist is not assessed secondary to a distal radius fracture. Xray / Imaging: AP lateral and oblique x-rays of the right wrist on the mini C-arm show posttraumatic changes at the distal radius and what appears to be an acute radial styloid fracture 1. Right hand pain 2. Other closed intra-articular fracture of distal end of right radius, initial encounter PLAN: Discussed his x-ray findings and treatment options and elevation is important at this time as well as us placing him in a short-arm splint. I would like to see him back in 1 week to assess his swelling at that time and assess the ability to apply a cast at that point. Pertinent anatomy and all questions were discussed. Ortho Casting/Splinting Documentation Date/Time: 06/01/2024 10:18 AM Performed by: Eren Garcia MD Authorized by: Eren Garcia MD Sensation: Normal Cast Applied: No Location: Wrist Wrist: R wrist Splint type: Short arm splint Supplies: Fiberglass, cotton stocking/sleeve and cotton Padding Number of fiberglass rolls used: 1 Capillary Refill: Normal Patient tolerance of procedure: Tolerated well, no immediate complications DIRECTOR documented in this encounter Plan of Treatment Not on file documented as of this encounter Procedures Procedure Name Priority Date/Time Associated Diagnosis Comments XR WRIST RIGHT 3 OR MORE VIEWS Schedule Routine, Read Routine (OP Routine) 06/01/2024 12:14 PM EMS DIRECTOR Right hand pain ORTHO CASTING/SPLINTING Routine 06/01/2024 10:18 AM EMS DIRECTOR Other closed intra-articular fracture of distal end of right radius, initial encounter documented in this encounter Results * XR Wrist Right 3 or More Views (06/01/2024 12:14 PM EMS DIRECTOR) Anatomical Region Laterality Modality Upper Extremities, Wrist Right Compute d Radiography Narrative 06/01/2024 12:14 PM EMS DIRECTOR AP lateral and oblique x-rays of the right wrist on the mini C-arm show posttraumatic changes at the distal radius and what appears to be an acute radial styloid fracture us Eren Garcia MD IMG XR PROCEDURES Final Result * Ortho Casting/Splinting Documentation (06/01/2024 10:18 AM EMS DIRECTOR) Narrative Eren Garcia MD - 06/01/2024 10:18 AM EMS DIRECTOR Eren Garcia MD ? 06/01/2024 12:14 PM Ortho Casting/Splinting Documentation Date/Time: 06/01/2024 10:18 AM Performed by: Eren Garcia MD Authorized by: Eren Garcia MD ?? Sensation: ??Normal Cast Applied: No ?? Location: ??Wrist Wrist: ??R wrist Splint type: ??Short arm splint Supplies: ??Fiberglass, cotton stocking/sleeve and cotton Padding Number of fiberglass rolls used: ??1 Capillary Refill: ??Normal Patient tolerance of procedure: ??Tolerated well, no immediate complications us Eren Garcia MD IN CLINIC/BEDSIDE ORDERA BLES Final Result documented in this encounter Visit Diagnoses Diagnosis Right hand pain- Primary Pain in soft tissues of limb Other closed intra-articular fracture of distal end of right radius, initial encounter documented in this encounter Discontinued Medications Medication Sig Discontinue Reason Start Date End Da te predniSONE (DELTASONE) 5 mg tabletIndications:Right hand pain Take 1 tablet (5 mg) by mouth 2 (two) times a day for 7 days Therapy completed 06/01/2024 06/01/2024 documented as of this encounter Care Teams Interactive Account Manager Relationship Specialty Start Date End Date Tres Mccann DO PCP - General Family Medicine 02/24/19 documented as of this encounter
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
--- OUTSIDE RECORDS SUMMARY | 2024-07-23 13:11 | XMS_ITS | Encounter Summary ---
Author Organization [facility] Address [address] [place] [address] Care Team Providers Care Inverted Block Operator Name Role Phone Tres Espinoza DO Primary Care Provider + Reason for Visit * Reason Onset Date Comments Leg Pain 01/30/2023 Encounter Details Date Type Department Care Team (Late st Contact Info) Description 01/30/2023 Nurse Triage [facility] Family Medicine [address] [place] [phone] Beverly Olivera RN Social History Tobacco Use Types Packs/Day Years [...] on file 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 Had the same symptoms last year. Symptoms resolved but Dr. Espinoza still evaluated patient to check for DVT. Cleared. Patient experienced a pain in his knee all the way down to his calf in right leg. While sleeping at night he has more pain. Bengay and Ibuprofen gives great relief. Not supposed to take ibuprofen due to taking Mobic. Currently not feeling any pain. Pain is intermittent. Addison with stretch's. No chest pain or SOB. Able to walk. No red area. No swelling. Pain has been going on for the last 4-5 days. No recent travel, fracture or major surgery. No rash or signs of infection. Suggested heat, continue bengay, Arthritis tylenol and prescribed Mobic. Reason for Disposition [1] MODERATE pain (e.g., interferes with normal activities, limping) AND [2] present > 3 days Protocols used: Leg [id number] * Telephone Encounter - Beverly Olivera RN - 01/30/2023 4:37 PM CDT Regarding: pain in left leg ----- Message from Desiree Chan sent at 01/30/2023 4:36 PM CDT ----- Symptom Based Call Caller's Callback #: [phone] Chief Complaint(s): pain in left leg Duration: 4 days What type of symptom(s) is the patient experiencing? Non-Emergent. Is this a new or reoccurring symptom(s)? Reoccurring What have you tried to help your symptom(s)? ibuprofen Why was appointment not scheduled? Requesting advice from clinical steam conditioning operator. Additional Comments: Patient is stating he has been feeling a pain in his leg. He said he believes it may be from working and standing on his feet a lot but is wanting clinical advice on what he can do until his appointment. He made an appointment for [phone] Does message need to be routed? Yes-Action Needed documented in this encounter Plan of Treatment Not on file documented as of this encounter Visit Diagnoses Not on filedocumented in this encounter Care Teams Inverted Block Operator Relationship Specialty Start Date End Date Tres Espinoza DO PCP - General Family Medicine 02/24/19 documented as of this encounter
--- OUTSIDE RECORDS SUMMARY | 2024-07-23 13:11 | XMS_ITS | Encounter Summary ---
Author Organization [facility] Address [address] [place] [address] Care Team Providers Care Corrosion Control Specialist Name Role Phone Santa NellaTres Marmolejo DO Primary Care Provider + Reason for Visit * Reason Comments Pain Fracture Encounter Details Date Type Department Care Team (Late st Contact Info) Description 06/08/2024 11:15 AM BEHAVIORAL THERAPY COORDINATOR Office Visit [facility] Hand Surgery [address] [place] [address] [place] [phone] Eren Garcia MD [address] [place] [id number] Other closed intra-articular fracture of distal end of right radius with routine healing, subsequent encounter (Primary Dx) Social History Tobacco Use [...] on file Legal Sex Male 6:55 PM BEHAVIORAL THERAPY COORDINATOR Gender Identity Not on file Sexual Orientation Not on file documented as of this encounter Progress Notes * Eren Garcia MD - 06/08/2024 11:15 AM CSTAssociated Order(s): Ortho Casting/Splinting Documentation Pre-Procedure Diagnose(s): Other closed intra-articular fracture of distal end of right radius withroutine healing, subsequent encounter Post-Procedure Diagnose(s): Other closed intra-articular fracture of distal end of right radius with routine healing, subsequent encounter Images from the original note were not included. Patient ID: Mir Maharaj is a 64 y.o. male. Visit Date: 06/08/2024 Chief Complaint: Right wrist fracture HPI: This 64 y.o. male returns with 5/10 dull pain no new traumatic events no numbness paresthesias no feeling of instability Past Medical History: Diagnosis Date Arthritis Gout History reviewed. No pertinent surgical history. Allergies Allergen Reactions Azithromycin Rash Physical Exam: His gait is within normal limits. His mood and affect are appropriate. He is well nourished. He is alert and oriented to time and place. He has mild tenderness at the distal radius location. Normal flexion extension of the digits today. Minimal swelling at the right wrist Xray / Imaging: None today 1. Other closed intra-articular fracture of distal end of right radius with routine healing, subsequent encounter PLAN: Will apply a short-arm cast see him back in 3 weeks for cast-off x-rays examination. He understandsand agrees with this plan Ortho Casting/Splinting Documentation Date/Time: 06/08/2024 8:13 AM Performed by: Eren Garcia MD Authorized by: Eren Garcia MD Sensation: Normal Location: Wrist Wrist: R wrist Cast type: Short arm cast Supplies: Fiberglass, cotton stocking/sleeve and cotton Padding Number of fiberglass rolls used: 2 Capillary Refill: Normal Patient tolerance of procedure: Tolerated well, no immediate complications VIORAL THERAPY COORDINATOR documented in this encounter Plan of Treatment Not on file documented as of this encounter Procedures Procedure Name Priority Date/Time Associated Diagnosis Comments VA CAST SUP SHT ARM ADULT FBRGL Routine 06/08/2024 8:13 AM BEHAVIORAL THERAPY COORDINATOR Other closed intra-articular fracture of distal end of right radius with routine healing, subsequent encounter VA APPLICATION CAST ELBOW FINGER SHORT ARM Routine 06/08/2024 8:13 AM BEHAVIORAL THERAPY COORDINATOR Other closed intra-articular fracture of distal end of right radius with routine healing, subsequent encounter documented in this encounter Results * VA APPLICATION CAST ELBOW FINGER SHORT ARM, VA CAST SUP SHT ARM ADULT FBRGL (06/08/2024 8:13 AM BEHAVIORAL THERAPY COORDINATOR) Narrative Eren Garcia MD - 06/08/2024 8:13 AM BEHAVIORAL THERAPY COORDINATOR Eren Garcia MD ? 06/09/2024 ??8:14 AM Ortho Casting/Splinting Documentation Date/Time: 06/08/2024 8:13 AM Performed by: Eren Garcia MD Authorized by: Eren Garcia MD ?? Sensation: ??Normal Location: ??Wrist Wrist: ??R wrist Cast type: ??Short arm cast Supplies: ??Fiberglass, cotton stocking/sleeve and cotton Padding Number of fiberglass rolls used: ??2 Capillary Refill: ??Normal Patient tolerance of procedure: ??Tolerated well, no immediate complications Eren Garcia MD IN CLINIC/BEDSIDE ORDERA BLES Final Result documented in this encounter Visit Diagnoses Diagnosis Other closed intra-articular fracture of distal end of right radius with routine healing, subsequent encounter- Primary documented in this encounter Care Teams Corrosion Control Specialist Relationship Specialty Start Date End Date Tres Mccann DO PCP - General Family Medicine 02/24/19 documented as of this encounter
--- OUTSIDE RECORDS SUMMARY | 2024-07-23 13:11 | XMS_ITS | Encounter Summary ---
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
--- OUTSIDE RECORDS SUMMARY | 2024-07-23 13:11 | XMS_ITS | Encounter Summary ---
Author Organization [facility] Healthcare Address [address] [place] [address] Care Team Providers Care Slice Plug Cutter Operator Name Role Phone Tres Mccann DO Primary Care Provider + Encounter Details Date Type Department Care Team (Late st Contact Info) Description 04/12/2022 9:40 AM CDT Lab [facility] Lab [address] [place] [id number] Blood tests for routine general physical examination; Screening PSA (prostate specific antigen); Severe obesity (BMI 35.0-39.9) with comorbidity (CMS/HCC) (HCC) Social History Tobacco Use Types Packs/Day Years [...] on file 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 Gender Identity Not on file Sexual Orientation Not on file documented as of this encounter Miscellaneous Notes * Result Encounter Note - Tres Mccann DO - 04/14/2022 6:50 PM CDT Looks ok documented in this encounter Plan of Treatment Not on file documented as of this encounter Procedures Procedure Name Priority Date/Time Associated Diagnosis Comments EGFR Routine 04/12/2022 9:59 AM CDT Blood tests for routine general physical examination DIFFERENTIAL AUTO Routine 04/12/2022 9:5 9 AM CDT Blood tests for routine general physical examination THYROID FUNCTION CASCADE Routine 04/12/2022 9:59 AM CDT Severe obesity (BMI 35.0-39.9) with comorbidity (CMS/HCC) (HCC) Blood tests for routine general physical examination PSA SCREEN Routine 04/12/2022 9:59 AM CDT Screening PSA (prostate specific antigen) CBC WITH AUTO DIFFERENTIAL Routine 04/12/2022 9:59 AM CDT Blood tests for routine general physical examination HEPATIC FUNCTION PANEL Routine 04/12/2022 9:59 AM CDT Blood tests for routine general physical examination LIPID PANEL Routine 04/12/2022 9:59 AM CDT Severe obesity (BMI 35.0-39.9) with comorbidity (CMS/HCC) (HCC) Blood tests for routine general physical examination BASIC METABOLIC PANEL Routine 04/12/2022 9:59 AM CDT Blood tests for routine general physical examination documented in this encounter Results * eGFR (04/12/2022 9:59 AM CDT) eGFR 100 mL/min/1. 73 m2 SAM MOONEY Comment: Interpretive Data Reference Interval Normal ?>/= 90 mL/min/1.73m2 Mildly decreased* ? 60 - 89 mL/min/1.73m2 Mildly to moderately decreased ?45 - 59 mL/min/1.73m2 Moderately to severely decreased ??30 - 44 mL/min/1.73m2 Severely decreased ?15 - 29 mL/min/1.73m2 Kidney Failure ?< 15 ??mL/min/1.73m2 *Relative to young adult level Estimated glomerular filtration rate is determined by the 2020 CKD-EPI equation recommended by the National Kid[employer] (A Unifying Approach to GFR Estimation: Recommendations of the NKF-ASK Task Force on Reassessing the Inclusion of Race in Diagnosing Kidney Disease, JASN 2020). The CKD-EPI equation should not be used for patients with unstable renal function and has not been validated in children and those over 70. Current interpretive data was last reviewed 2021. Blood 04/12/2022 9:59 AM CDT 04/12/2022 10:31 AM CDT Tres Mccann DO LAB BLOOD ORDERABLES Fin al Result Performing Organization Address City/State/[facility] Co de Phone Number SAM [address] [facility] [place] [address] * Differential, auto (04/12/2022 9:59 AM CDT) Pathologist [facility] Neutrophil abs 3.7 1.7 - 6.5 K/cumm [facility] Imm gran abs 0.0 0.0 - 0.1 K/cumm [facility] Lymphocyte abs 1.9 0.8 - 3.3 K/cumm [facility] Monocyte abs 0.7 0.2 - 0.8 K/cumm [facility] Eosinophil abs 0.2 0.0 - 0.5 K/cumm [facility] Basophil abs 0.1 0.0 - 0.1 K/cumm [facility] Neutrophil pct 55.7 % [facility] Comment: Interpretive Data Percent cell count reference ranges are not reported, since discordance with absolute values may lead to misinterpretation of CBC data. Current Interpretive Data was last revised on 2017. Imm gran pct 0.5 % [facility] Comment: Interpretive Data Percent cell count reference ranges are not reported, since discordance with absolute values may lead to misinterpretation of CBC data. Current Interpretive Data was last revised on 2017. Lymphocyte pct 28.4 % [facility] Comment: Interpretive Data Percent cell count reference ranges are not reported, since discordance with absolute values may lead to misinterpretation of CBC data. Current Interpretive Data was last revised on 2017. Monocyte pct 11.1 % [facility] Comment: Interpretive Data Percent cell count reference ranges are not reported, since discordance with absolute values may lead to misinterpretation of CBC data. Current Interpretive Data was last revised on 2017. Eosinophil pct 3.5 % [facility] Comment: Interpretive Data Percent cell count reference ranges are not reported, since discordance with absolute values may lead to misinterpretation of CBC data. Current Interpretive Data was last revised on 2017. Basophil pct 0.8 % [facility] Comment: Interpretive Data Percent cell count reference ranges are not reported, since discordance with absolute values may lead to misinterpretation of CBC data. Current Interpretive Data was last revised on 2017. Blood 04/12/2022 9:59 AM CDT 04/12/2022 10:31 AM CDT Tres Mccann DO LAB BLOOD ORDERABLES Fin al Result [facility] [address] [facility] [place] [address] * CBC with auto differential (04/12/2022 9:59 AM CDT) WBC 6.6 3.8 - 9.9 K/cumm [facility] Hgb 14.6 13.0 - 17.5 g/dL [facility] Hct 42.8 38.9 - 50.3 % [facility] Plt 216 150 - 400 K/cumm [facility] MPV 10.5 9.1 - 12.3 fL [facility] RBC 4.84 4.30 - 5.80 M/cumm [facility] MCV 88.4 81.3 - 96.4 fL [facility] MCH 30.2 27.1 - 33.3 pg [facility] MCHC 34.1 32.3 - 35.7 g/dL [facility] RDW CV 13.0 11.1 - 14.9 % [facility] RDW SD 42.1 35.7 - 48.1 fL [facility] NRBC abs 0.00 0.00 - 0.01 K/cumm [facility] Blood 04/12/2022 9:59 AM CDT 04/12/2022 10:31 AM CDT Tres Mccann DO LAB BLOOD ORDERABLES Fin al Result Performing Organization Address City/State/[facility] Co de Phone Number [facility] [address] [facility] [place] [address] * Basic metabolic panel (04/12/2022 9:59 AM CDT) Sodium 138 135 - 145 mmol/L [facility] Potassium, pl 4.2 3.3 - 4.9 mmol/L [facility] Chloride 104 97 - 110 mmol/L [facility] CO2 23 22 - 32 mmol/L [facility] Anion gap 11 2 - 15 mmol/L [facility] BUN 18 8 - 25 mg/dL [facility] Creatinine 0.80 0.80 - 1.30 mg/dL [facility] Glucose 108 70 - 199 mg/dL [facility] Comment: Interpretive Data Fasting glucose >/= 126 [...] 2017. Calcium 8.9 8.5 - 10.3 mg/dL SAM Blood 04/12/2022 9:59 AM CDT 04/12/2022 10:31 AM CDT us Tres Hipolito Beverly DO LAB BLOOD ORDERABLES Fin al Result Performing Organization Address City/State/ZIP Co me Phone Number SAM [address] [facility] Department [place] [address] * (ABNORMAL) Lipid panel (04/12/2022 9:59 AM CDT) Cholesterol 165 30 - 199 mg/dL SAM [...] last revised on 2018. Chol/HDL ratio 5 [facility] Blood 04/12/2022 9:59 AM CDT 04/12/2022 10:31 AM CDT Narrative SAM - 04/12/2022 11:36 AM CDT Has the patient been fasting for 8 hours or more?->Yes us Tres Mccann DO LAB BLOOD ORDERABLES Fin al Result Performing Organization Address [facility] Co de Phone Number [address] [place] [address] * TSH reflex to free T4 (04/12/2022 9:59 AM CDT) TSH 1.54 0.30 - 4.20 mcIUnit/mL [facility] Blood 04/12/2022 9:59 AM CDT 04/12/2022 10:31 AM CDT Tres Mccann DO LAB BLOOD ORDERABLES Fin al Result Performing Organization Address City/[facility] Co de Phone Number [address] [place] [address] * PSA screen (04/12/2022 9:59 AM CDT) PSA-Total 0.76 <=5.40 ng/mL SAM Comment: Interpretive Data ?AGE ? SEX ?REFERENCE INTERVAL 0 minutes-150 years ?Female ?None 0 minutes-49 years ? Male ?None ? 50-59 years ? Male ?0-3.90 ? 60-69 years ? Male ?0-5.40 ? 70-79 years ? Male ?0-6.20 ? 80-150 years ?Male ?0-6.20 The [employer] PSA Total assay procedure was used. Results from different manufacturers or methods may not be comparable. Serial testing should be performed using the same method. Current interpretive data last revised 21. Blood 04/12/2022 9:59 AM CDT 04/12/2022 10:31 AM CDT us Tres Mccann DO LAB BLOOD ORDERABLES Fin al Result [facility] [address] [facility] Department [place] [address] * Hepatic function panel (04/12/2022 9:59 AM CDT) Bilirubin, total 0.3 0.1 - 1.2 mg/dL [facility] Bilirubin, direct <0.2 0.1 - 0.3 mg/dL [facility] Protein, pl 7.0 6.5 - 8.5 g/dL [facility] Albumin 4.2 3.5 - 5.0 g/dL [facility] Alk phos 88 40 - 130 Units/L [facility] ALT 45 7 - 55 Units/L [facility] AST 30 10 - 50 Units/L [facility] Blood 04/12/2022 9:59 AM CDT 04/12/2022 10:31 AM CDT Tres Mccann DO LAB BLOOD ORDERABLES Fin al Result [facility] [address] [facility] Department [place] [address] documented in this encounter Visit Diagnoses Diagnosis Blood tests for routine general physical examination Laboratory examination ordered as part of a routine general medical examination Screening PSA (prostate specific antigen) Special screening for malignant neoplasm of prostate Severe obesity (BMI 35.0-39.9) with comorbidity (HCC) documented in this encounter Care Teams Slice Plug Cutter Operator Relationship Specialty Start Date End Date Tres Mccann DO PCP - General Family Medicine 02/24/19 documented as of this encounter
--- OUTSIDE RECORDS SUMMARY | 2024-07-23 13:11 | XMS_ITS | Encounter Summary ---
Author Organization [facility] Healthcare Address [address] [place] [address] Care Team Providers Care Jigger Crown Pouncing Machine Operator Name Role Phone Tres Mccann DO Primary Care Provider + Encounter Details Date Type Department Care Team (Late st Contact Info) Description 05/23/2023 9:40 AM CDT Lab [facility] Lab [address] [place] [id number] Annual physical exam; Screening PSA (prostate specific antigen) Social History Tobacco Use Types Packs/Day Years [...] staff should administer the PHQ-9) 0 05/19/2023 Sex and Gender Information Value Date Recorded Sex Assigned at Not on file 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 Gender Identity Not on file Sexual Orientation Not on file documented as of this encounter Plan of Treatment Not on file documented as of this encounter Procedures Procedure Name Priority Date/Time Associated Diagnosis Comments EGFR Routine 05/23/2023 9:56 AM CDT Annual physical exam DIFFERENTIAL AUTO Routine 05/23/2023 9:5 6 AM CDT Annual physical exam THYROID FUNCTION CASCADE Routine 05/23/2023 9:56 AM CDT Annual physical exam PSA SCREEN Routine 05/23/2023 9:56 AM CDT Screening PSA (prostate specific antigen) CBC WITH AUTO DIFFERENTIAL Routine 05/23/2023 9:56 AM CDT Annual physical exam HEPATIC FUNCTION PANEL Routine 05/23/2023 9:56 AM CDT Annual physical exam LIPID PANEL Routine 05/23/2023 9:56 AM CDT Annual physical exam BASIC METABOLIC PANEL Routine 05/23/2023 9:56 AM CDT Annual physical exam documented in this encounter Results * eGFR (05/23/2023 9:56 AM CDT) [facility] eGFR 99 mL/min/1. 73 m2 [facility]ONEY Comment: Interpretive [...] of Race in Diagnosing Kidney Disease, JASN 202). The CKD-EPI equation should not be used for patients with unstable renal function and has not been validated in children and those over 70. Current interpretive data was last reviewed 2021. Blood 05/23/2023 9:56 AM CDT 05/23/2023 10:15 AM CDT Tres Mccann DO LAB BLOOD ORDERABLES Fin al Result [facility] [address] [facility] [place] [address] * Differential, auto (05/23/2023 9:56 AM CDT) Pathologist [facility] Neutrophil abs 3.2 1.7 - 6.5 K/cumm [facility] Imm gran abs 0.0 0.0 - 0.1 K/cumm [facility] Lymphocyte abs 2.0 0.8 - 3.3 K/cumm [facility] Monocyte abs 0.6 0.2 - 0.8 K/cumm [facility] Eosinophil abs 0.2 0.0 - 0.5 K/cumm [facility] Basophil abs 0.1 0.0 - 0.1 K/cumm [facility] Neutrophil pct 52.6 % [facility] Comment: Interpretive Data Percent cell count reference ranges are not reported, since discordance with absolute values may lead to misinterpretation of CBC data. Current Interpretive Data was last revised on 2017. Imm gran pct 0.3 % [facility] Comment: Interpretive Data Percent cell count reference ranges are not reported, since discordance with absolute values may lead to misinterpretation of CBC data. Current Interpretive Data was last revised on 2017. Lymphocyte pct 32.6 % [facility] Comment: Interpretive Data Percent cell count reference ranges are not reported, since discordance with absolute values may lead to misinterpretation of CBC data. Current Interpretive Data was last revised on 2017. Monocyte pct 9.8 % [facility] Comment: Interpretive Data Percent cell count reference ranges are not reported, since discordance with absolute values may lead to misinterpretation of CBC data. Current Interpretive Data was last revised on 2017. Eosinophil pct 3.9 % SAM Comment: Interpretive Data Percent cell count reference ranges are not reported, since discordance with absolute values may lead to misinterpretation of CBC data. Current Interpretive Data was last revised on 2017. Basophil pct 0.8 % SAM Comment: Interpretive Data Percent cell count reference ranges are not reported, since discordance with absolute values may lead to misinterpretation of CBC data. Current Interpretive Data was last revised on 2017. Blood 05/23/2023 9:56 AM CDT 05/23/2023 10:15 AM CDT Tres Mccann DO LAB BLOOD ORDERABLES Fin al Result Performing Organization Address City/State/[facility] Co de Phone Number SAM [address] [facility] [place] [address] * (ABNORMAL) Lipid panel (05/23/2023 9:56 AM CDT) Cholesterol 202(H) 30 - 199 mg/dL SAM Comment: Interpretive [...] Data was last revised on 2018. Triglycerides 192(H) <=149 mg/dL [facility] Comment: Interpretive Data Ages < or = [...] Data was last revised on 2018. HDL 37(L) >=40 mg/dL [facility] Comment: Interpretive Data Ages < or = [...] was last revised on 2018. LDL, calculated 127 <=129 mg/dL [facility] Comment: Interpretive Data Ages < or = [...] was last revised on 2018. Non-HDL Cholesterol 165 mg/dL SAM Comment: Interpretive Data Ages < [...] on 2018. Chol/HDL ratio 5 [facility] Blood 05/23/2023 9:56 AM CDT 05/23/2023 10:15 AM CDT us Tres Mccann DO LAB BLOOD ORDERABLES Fin al Result Performing Organization Address City/State/[facility] Co id Phone Number SAM [address] [facility] [place] [address] * PSA screen (05/23/2023 9:56 AM CDT) PSA-Total 0.70 <=5.40 ng/mL SAM Comment: Interpretive Data ?AGE ? SEX ?REFERENCE INTERVAL 0 minutes-150 years ?Female ?None 0 minutes-49 years ? Male ?None ? 50-59 years ? Male ?0-3.90 ? 60-69 years ? Male ?0-5.40 ? 70-79 years ? Male ?0-6.20 ? 80-150 years ?Male ?0-6.20 The [employer] PSA Total assay procedure was used. Results from different manufacturers or methods may not be comparable. Serial testing should be performed using the same method. Current interpretive data last revised 21. Blood 05/23/2023 9:56 AM CDT 05/23/2023 10:15 AM CDT Tres Mccann DO LAB BLOOD ORDERABLES Fin al Result Performing Organization Address City/State/[facility] Co de Phone Number [facility] [address] [facility] Department [place] [address] * Basic metabolic panel (05/23/2023 9:56 AM CDT) Sodium 135 135 - 145 mmol/L [facility] Potassium, pl 3.7 3.3 - 4.9 mmol/L [facility] Chloride 100 97 - 110 mmol/L [facility] CO2 24 22 - 32 mmol/L [facility] Anion gap 11 2 - 15 mmol/L [facility] BUN 22 6 - 25 mg/dL [facility] Creatinine 0.80 0.80 - 1.30 mg/dL [facility] Glucose 109 70 - 199 mg/dL [facility] Comment: Interpretive Data Fasting glucose >/= 126 [...] classification and Diagnosis of Diabetes Diabetes Care 2022; 46: S19-S40. Current interpretive data was last revised 2022. Calcium 9.4 8.5 - 10.3 mg/dL [facility] Blood 05/23/2023 9:56 AM CDT 05/23/2023 10:15 AM CDT Tres Mccann DO LAB BLOOD ORDERABLES Fin al Result [facility] [address] [facility] Department [place] [address] * CBC with auto differential (05/23/2023 9:56 AM CDT) Pathologist [facility] WBC 6.1 3.8 - 9.9 K/cumm [facility] Hgb 14.6 13.0 - 17.5 g/dL [facility] Comment: Interpretive Data A reference range for this assay has not been established for patients with an unknown legal sex. Please refer to the laboratory test catalog for established sex-specific reference intervals. Current interpretive data was last revised on 2023. Hct 43.1 38.9 - 50.3 % [facility] Comment: Interpretive Data A reference range for this assay has not been established for patients with an unknown legal sex. Please refer to the laboratory test catalog for established sex-specific reference intervals. Current interpretive data was last revised on 2023. Plt 235 150 - 400 K/cumm [facility] MPV 10.0 9.1 - 12.3 fL [facility] RBC 4.90 4.30 - 5.80 M/cumm [facility] Comment: Interpretive Data A reference range for this assay has not been established for patients with an unknown legal sex. Please refer to the laboratory test catalog for established sex-specific reference intervals. Current interpretive data was last revised on 2023. MCV 88.0 81.3 - 96.4 fL [facility] MCH 29.8 27.1 - 33.3 pg [facility] MCHC 33.9 32.3 - 35.7 g/dL [facility] RDW CV 12.7 11.1 - 14.9 % [facility] RDW SD 40.8 35.7 - 48.1 fL [facility] NRBC abs 0.00 0.00 - 0.01 K/cumm [facility] Blood 05/23/2023 9:56 AM CDT 05/23/2023 10:15 AM CDT Tres Mccann DO LAB BLOOD ORDERABLES Fin al Result Performing Organization Address City/[facility] Co de Phone Number [address] [place] [place] [address] * TSH reflex to free T4 (05/23/2023 9:56 AM CDT) Pathologist [facility] TSH 2.37 0.30 - 4.20 mcIUnit/mL [facility] Blood 05/23/2023 9:56 AM CDT 05/23/2023 10:15 AM CDT Tres Mccann DO LAB BLOOD ORDERABLES Kermit viri Result - Final Performing Organization Address [facility] de Phone Number [address] [place] [employer] [place] [address] * Hepatic function panel (05/23/2023 9:56 AM CDT) Bilirubin, total 0.7 0.1 - 1.2 mg/dL [facility] Bilirubin, direct <0.2 0.1 - 0.3 mg/dL [facility] Protein, pl 7.3 6.5 - 8.5 g/dL [facility] Albumin 4.4 3.5 - 5.0 g/dL [facility] Alk phos 75 40 - 130 Units/L [facility] ALT 50 7 - 55 Units/L [facility] AST 36 10 - 50 Units/L [facility] Blood 05/23/2023 9:56 AM CDT 05/23/2023 10:15 AM CDT Tres Mccann DO LAB BLOOD ORDERABLES Fin al Result Performing Organization Address [facility] Co de Phone Number [address] [place] [address] documented in this encounter Visit Diagnoses Diagnosis Annual physical exam Routine general medical examination at a health care facility Screening PSA (prostate specific antigen) Special screening for malignant neoplasm of prostate documented in this encounter Care Teams Jigger Crown Pouncing Machine Operator Relationship Specialty Start Date End Date Tres Mccann DO PCP - General Family Medicine 02/24/19 documented as of this encounter
--- OUTSIDE RECORDS SUMMARY | 2024-07-23 13:11 | XMS_ITS | Encounter Summary ---
Author Organization [facility] Address [address] [place] [address] Phone Care Team Providers Care Beverage Server Name Role Phone Tres Mccann DO Primary Care Provider + Reason for Visit * Reason Comments Follow-up Encounter Details Date Type Department Care Team (Late st Contact Info) Description 05/22/2021 8:50 AM CDT Office Visit [facility] Orthopaedic Surgery [address] [place] [address] Medicine 6th [place] [address] [place] [phone] Conrado Pena MD [address] [facility] 6A/6B[address]12A [place] [address] Closed fracture of distal end of right [...] on file 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 He has been treated in a cast for the last 2 weeks. He is doing well, has no pain, and has been moving his fingers daily. He has had no issues with his cast. He would like to return to work next week. PHYSICAL EXAM The patient was alert and oriented normally. Normal affect. Skin is intact, pulses normal, and neurologically intact. Focused examination of the right upper extremity demonstrates normal overall alignment. Cast has been removed. He has no tenderness to palpation about the distal radius. His wrist range of motion is 50?? supination, 70?? pronation, 30?? extension, and 15?? of flexion. DPC is 1 cm to all digits. Neurovascularly intact. FLUOROSCAN REPORT Fluoroscopy: Today I ordered, performed, and interpreted three views of the right wrist. There is again visualized an intra-articular distal radius fracture that is nondisplaced. Compared to previous fluoroscopic imaging there is no interval displacement. He does have some early evidence of callus formation. ASSESSMENT AND PLAN 61-year-old male 6 weeks status post right distal radius fracture, treated non operatively. He is doing very well. His cast was removed in clinic today. We will transition him to a removable brace, and he will start range of motion exercises for his wrist. He can return to work full duty next Thursday05/28/2021. We will see him back in 6 weeks for a clinical re-examination if he would like to check in. Dr. Conrado Pena dictating with [employer]ency [employer]. International Trade Compliance Manager variances may occur. I was present for the critical portion of the history, physical examination and participated in theradiographic review and medical decision making on this patient. I agree with this report which wasgenerated with the assistance of Dr. Booth. Conrado Pena M.D. Professor Hand and Upper Extremity Surgery [facility] Orthopedics * Cher Monte CMA - 05/22/2021 8:50 AM CDTAssociated Order(s): Ortho Casting/Splinting Documentation Post-Procedure Diagnose(s): Closed fracture of distal end of right radius, unspecified fracture morphology, initial encounter Ortho Casting/Splinting Documentation Date/Time: 05/22/2021 11:44 AM Performed by: Cher Monte CMA Authorized by: Conrado Pena MD Sensation: Normal Skin Condition: Clean, dry, and intact [place]/Sutures Removed: No Pin Pulled: No Cast Removed: Yes Cast Applied: No Location: Hand Hand: R hand Capillary Refill: Normal Patient tolerance of procedure: Tolerated well, no immediate complications Pt received R[place] Wrist Lacer 8 documented in this encounter Plan of Treatment Not on file documented as of this encounter Procedures Procedure Name Priority Date/Time Associated Diagnosis Comments ORTHO CASTING/SPLINTING Routine 05/22/2021 11:44 AM CDT Closed fracture of distal end of right radius, unspecified fracture morphology, initial encounter documented in this encounter Results * Ortho Casting/Splinting Documentation (05/22/2021 11:44 AM CDT) Narrative Cher Monte CMA - 05/22/2021 11:44 AM CDT Cher Monte CMA ? 05/22/2021 11:46 AM Ortho Casting/Splinting Documentation Date/Time: 05/22/2021 11:44 AM Performed by: Cher Monte CMA Authorized by: Conrado Pena MD Sensation: ??Normal Skin Condition: ??Clean, dry, and intact [place]/Sutures Removed: No ?? Pin Pulled: No ?? Cast Removed: Yes ?? Cast Applied: No ?? Location: ??Hand Hand: ??R hand Capillary Refill: ??Normal Patient tolerance of procedure: ??Tolerated well, no immediate complications Pt received [place]t [place] Wrist Lacer 8 us Conrado Pena MD IN CLINIC/BEDSIDE ORDERAB LES Final Result documented in this encounter Visit Diagnoses Diagnosis Closed fracture of distal end of right radius, unspecified fracture morphology, initial encounter- Primary documented in this encounter Care Teams Beverage Server Relationship Specialty Start Date End Date Tres Mccann DO PCP - General Family Medicine 02/24/19 documented as of this encounter
--- OUTSIDE RECORDS SUMMARY | 2024-07-23 13:11 | XMS_ITS | Encounter Summary ---
Author Organization [facility] Address [address] [place] [address] Care Team Providers Care Travelift Operator Name Role Phone Tres Mccann DO Primary Care Provider + Reason for Visit * Reason Comments Leg Pain Right leg pain Encounter Details Date Type Department Care Team (Late st Contact Info) Description 02/03/2023 8:30 AM CDT Office Visit [facility] Family Medicine [address] [place] [phone] Sue Cruz PA [address] [place] [id number] Right leg pain (Primary Dx); Morbid obesity with BMI of 40.0-44.9, adult (HCC) Social History Tobacco Use Types Packs/Day [...] on file 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 Gender Identity Not on file Sexual Orientation Not on file documented as of this encounter Last Filed Vital Signs Vital Sign Reading Time Taken Comments Blood Pressure 128/88 02/03/2023 8:45 AM CDT Pulse 62 02/03/2023 8:31 AM CDT Temperature 36.6 ??C (97.8 ??F) 02/03/2023 8:31 AM CD T Respiratory Rate 18 02/03/2023 8:31 AM CDT Oxygen Saturation 95% 02/03/2023 8:31 AM CDT Inhaled Oxygen Concentration - - Weight 129.4 kg (285 lb 3.2 oz) 02/03/2023 8:31 AM CDT Height 177.8 cm (5' 10 ) 02/03/2023 8:31 AM CDT Body Mass Index 40.92 02/03/2023 8:31 AM CDT documented in this encounter Ordered Prescriptions Prescription Sig Dispense Quantity Refills Last Filled Start Date End Date cyclobenzaprine (FLEXERIL) 10 mg tablet Take 1 tablet (10 mg total) by mouth 3 (three) times a day as needed for muscle spasms 30 tablet 02/03/2023 documented in this encounter Progress Notes * Sue Cruz PA - 02/03/2023 8:30 AM CDT Images from the original note were not included. Visit Date: 02/03/2023 Patient ID: Mir Maharaj is a 62 y.o. male. Chief Complaint(s): Leg Pain (Right leg pain) HPI: Mir Maharaj is a 62 y.o. male here today for right leg pain for the past week. Reports pain starts in mid thigh down lateral side of knee and calf into ankle. Feels like muscle cramping. He reports he is on his feet all day at work and stands on hard surface but doesn't have pain while at work. Pain occurs with prolonged sitting and at night. Denies swelling or low back pain. Denies numbness. He tried inserts in his boots without relief. No known injuries. He is on meloxicam 7.5 mg daily forleft knee OA. Current Outpatient Medications Medication Sig Dispense Refill meloxicam (MOBIC) 7.5 mg tablet TAKE 1 TABLET BY MOUTH EVERY DAY 90 tablet 1 sildenafiL (VIAGRA) 100 mg tablet TAKE 1 TABLET BY MOUTH ONCE DAILY NEEDED FOR ERECTILE DYSFUNCTION 12 tablet 0 cyclobenzaprine (FLEXERIL) 10 mg tablet Take 1 tablet (10 mg total) by mouth 3 (three) times a day as needed for muscle spasms 30 tablet 0 No current facility-administered medications for this visit. Allergies as of 02/03/2023 - Reviewed 02/03/2023 Allergen Reaction Noted Azithromycin Rash 02/25/2019 Review of Systems: Review of Systems Constitutional: Negative for chills and fever. Respiratory: Negative for shortness of breath. Cardiovascular: Negative for chest pain. Gastrointestinal: Negative for abdominal pain and vomiting. Skin: Negative for rash. Physical Examination: Vitals: 02/03/23 0831 02/03/23 0845 BP: 142/90 128/88 BP Location: Right arm Patient Position: Sitting Pulse: 62 Resp: 18 Temp: 36.6 ??C (97.8 ??F) TempSrc: Temporal SpO2: 95% Weight: 129.4 kg (285 lb 3.2 oz) Height: 177.8 cm (5' 10 ) Physical Exam Vitals and nursing note reviewed. Constitutional: General: He is not in acute distress. Appearance: Normal appearance. HENT: Head: Normocephalic and atraumatic. Eyes: Extraocular Movements: Extraocular movements intact. Conjunctiva/sclera: Conjunctivae normal. Pupils: Pupils are equal, round, and reactive to light. Cardiovascular: Rate and Rhythm: Normal rate and regular rhythm. Heart sounds: Normal heart sounds. Pulmonary: Effort: Pulmonary effort is normal. No respiratory distress. Breath sounds: Normal breath sounds. No stridor. No wheezing, rhonchi or rales. Abdominal: General: There is no distension. Palpations: Abdomen is soft. Tenderness: There is no abdominal tenderness. There is no right CVA tenderness or left CVA tenderness. Musculoskeletal: Cervical back: Normal range of motion. Lumbar back: No spasms, tenderness or bony tenderness. Negative right straight leg raise test and negative left straight leg raise test. Right hip: No tenderness. Normal range of motion. Right upper leg: No swelling or tenderness. Right knee: No swelling or ecchymosis. Normal range of motion. No tenderness. No LCL laxity, MCL laxity, ACL laxity or PCL laxity. Right lower leg: No tenderness. No edema. Left lower leg: No edema. Lymphadenopathy: Cervical: No cervical adenopathy. Skin: General: Skin is warm and dry. Findings: No lesion or rash. Neurological: General: No focal deficit present. Mental Status: He is alert and oriented to person, place, and time. Motor: No weakness. Gait: Gait normal. Psychiatric: Mood and Affect: Mood normal. Behavior: Behavior normal. Thought Content: Thought content normal. Judgment: Judgment normal. PHQ Screening Results Reviewed: No results found for this or any previous visit (from the past 2 hour(s)). No visits with results within 2 Week(s) from this visit. Latest known visit with results is: Lab on 04/12/2022 Component Date Value Bilirubin, total 04/12/2022 0.3 Bilirubin, direct 04/12/2022 <0.2 Protein, pl 04/12/2022 7.0 Albumin 04/12/2022 4.2 Alk phos 04/12/2022 88 ALT 04/12/2022 45 AST 04/12/2022 30 PSA-Total 04/12/2022 0.76 TSH 04/12/2022 1.54 Cholesterol 04/12/2022 165 Triglycerides 04/12/2022 123 HDL 04/12/2022 36 (L) LDL, calculated 04/12/2022 104 Non-HDL Cholesterol 04/12/2022 129 Chol/HDL ratio 04/12/2022 5 Sodium 04/12/2022 138 Potassium, pl 04/12/2022 4.2 Chloride 04/12/2022 104 CO2 04/12/2022 23 Anion gap 04/12/2022 11 BUN 04/12/2022 18 Creatinine 04/12/2022 0.80 Glucose 04/12/2022 108 Calcium 04/12/2022 8.9 WBC 04/12/2022 6.6 Hgb 04/12/2022 14.6 Hct 04/12/2022 42.8 Plt 04/12/2022 216 MPV 04/12/2022 10.5 RBC 04/12/2022 4.84 MCV 04/12/2022 88.4 MCH 04/12/2022 30.2 MCHC 04/12/2022 34.1 RDW CV 04/12/2022 13.0 RDW SD 04/12/2022 42.1 NRBC abs 04/12/2022 0.00 Neutrophil abs 04/12/2022 3.7 Imm gran abs 04/12/2022 0.0 Lymphocyte abs 04/12/2022 1.9 Monocyte abs 04/12/2022 0.7 Eosinophil abs 04/12/2022 0.2 Basophil abs 04/12/2022 0.1 Neutrophil pct 04/12/2022 55.7 Imm gran pct 04/12/2022 0.5 Lymphocyte pct 04/12/2022 28.4 Monocyte pct 04/12/2022 11.1 Eosinophil pct 04/12/2022 3.5 Basophil pct 04/12/2022 0.8 eGFR 04/12/2022 100 Assessment/Plan Diagnoses and all orders for this visit: Right leg pain (M79.604) (Primary) Comments: Occurs at rest. Sounds like muscle spasms. Negative SLR. No tenderness on exam. Will try flexeril 10 mg TID/PRN. If no improvement, check right knee xray. Other orders - cyclobenzaprine (FLEXERIL) 10 mg tablet; Take 1 tablet (10 mg total) by mouth 3 (three) times a day as needed for muscle spasms Return if symptoms worsen or fail to improve. NIC [place] documented in this encounter Plan of Treatment Not on file documented as of this encounter Visit Diagnoses Diagnosis Right leg pain- Primary Pain in soft tissues of limb Morbid obesity with BMI of 40.0-44.9, adult (HCC) documented in this encounter Discontinued Medications Medication Sig Discontinue Reason Start Date End Da te senna (SENOKOT) 8.6 mg tablet Take 2 tablets by mouth 2 (two) times a day Therapy completed 04/16/2021 02/03/2023 oxyCODONE (ROXICODONE) 5 mg immediate release tabletIndications:Pain Take 1 tablet (5 mg total) by mouth every 4 (four) hours as needed for pain Therapy completed 04/26/2021 02/03/2023 lidocaine (ASPERCREME) 4 % adhesive patch,medicated Place 1 patch on the skin daily Therapy completed 04/16/2021 02/03/2023 cyclobenzaprine (FLEXERIL) 5 mg tablet Take 1 tablet (5 mg total) by mouth 3 (three) times a day as needed for muscle spasms Therapy completed 05/01/2021 02/03/2023 acetaminophen 500 mg capsule Take 2 capsules (1,000 mg total) by mouth every 6 (six) hours as needed (pain) Therapy completed 05/01/2021 02/03/2023 documented as of this encounter Care Teams Travelift Operator Relationship Specialty Start Date End Date Tres Mccann DO PCP - General Family Medicine 02/24/19 documented as of this encounter
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
--- OUTSIDE RECORDS SUMMARY | 2024-07-23 13:11 | XMS_ITS | Encounter Summary ---
Author Organization [facility] Address [address] [place] [address] Care Team Providers Care Golf Starter And Ranger Name Role Phone Tres Mccann DO Primary Care Provider + Reason for Visit * Reason Onset Date Comments Fax 05/01/2021 Encounter Details Date Type Department Care Team (Late st Contact Info) Description 05/01/2021 Telephone [facility] Family Medicine [address] [place] [phone] Tres Mccann DO [address] [facility] [address] [place] [address] Fax Social History Tobacco Use Types Packs/Day Years Used Date Smoking Tobacco: Former Smokeless Tobacco: Never Alcohol Use Standard Drinks/Week Comments Not Currently 0 (1 standard drink = 0.6 oz pur e alcohol) PHQ-2 Answer Date Recorded PHQ-2 Total Score 0 03/19/2021 Sex and Gender Information Value Date Recorded Sex Assigned at Not on file 

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
--- OUTSIDE RECORDS SUMMARY | 2024-07-23 13:11 | XMS_ITS | Encounter Summary ---
Author Organization [facility] Address [address] [place] [address] Phone Care Team Providers Care Hydrate Control Tender Name Role Phone Tres Mccann DO Primary Care Provider + Encounter Details Date Type Department Care Team (Latest Contact Info) Description 05/22/2021 Orders Only [facility] HAND/WRIST Scanning, Provider Social History Tobacco Use Types Packs/Day Years Used Date Smoking Tobacco: Former Smokeless Tobacco: Never Alcohol Use Standard Drinks/Week Comments Not Currently 0 (1 standard drink = 0.6 oz pur e alcohol) PHQ-2 Answer Date Recorded PHQ-2 Total Score 0 03/19/2021 Sex and Gender Information Value Date Recorded Sex Assigned at Not on file 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 Gender Identity Not on file Sexual Orientation Not on file documented as of this encounter Plan of Treatment Not on file documented as of this encounter Procedures Procedure Name Priority Date/Time Associated Diagnosis Comments SCAN - RADIOLOGY/IMAGING 05/22/2021 documented in this encounter Results * SCAN - RADIOLOGY/IMAGING (05/22/2021) Anatomical Region Laterality Modality Other us Provider Scanning Final Result documented in this encounter Visit Diagnoses Not on filedocumented in this encounter Care Teams Hydrate Control Tender Relationship Specialty Start Date End Date Tres Mccann DO PCP - General Family Medicine 02/24/19 documented as of this encounter
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
--- OUTSIDE RECORDS SUMMARY | 2024-07-23 13:11 | XMS_ITS | Encounter Summary ---
Author Organization [facility] Address [address] [place] [address] Phone Care Team Providers Care Quarry Extraction Worker Name Role Phone Tres Mccann DO Primary Care Provider + Reason for Visit * Reason Onset Date Comments Post Discharge 04/18/2021 Encounter Details Date Type Department Care Team (Late st Contact Info) Description 04/18/[address] 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 Did you get all of your medications you were prescribed on discharge? yes 2. Did you receive the services that were arranged on discharge (if applicable)? yes 3. Did you have any questions that were not answered at the time of your discharge that we can address at your clinic visit? yes 4. Do you have your follow-up visit scheduled and do you know when that is?yes 5. Do you feel like you need to be seen sooner than your scheduled visit? no documented in this encounter Plan of Treatment Not on file documented as of this encounter Visit Diagnoses Not on filedocumented in this encounter Care Teams Quarry Extraction Worker Relationship Specialty Start Date End Date Tres Mccann DO PCP - General Family Medicine 02/24/19 documented as of this encounter
--- OUTSIDE RECORDS SUMMARY | 2024-07-23 13:11 | XMS_ITS | Encounter Summary ---
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 Gender Identity Not on file Sexual Orientation Not on file documented as of this encounter Plan of Treatment Not on file documented as of this encounter Procedures Procedure Name Priority Date/Time Associated Diagnosis Comments SCAN - RADIOLOGY/IMAGING 05/08/2021 documented in this encounter Results * SCAN - RADIOLOGY/IMAGING (05/08/2021) Anatomical Region Laterality Modality Other us Provider Scanning Final Result documented in this encounter Visit Diagnoses Not on filedocumented in this encounter Care Teams Community Health Nurse Staff Relationship Specialty Start Date End Date Tres Mccann DO PCP - General Family Medicine 02/24/19 documented as of this encounter
--- OUTSIDE RECORDS SUMMARY | 2024-07-23 13:11 | XMS_ITS | Encounter Summary ---
Author Organization [facility] Healthcare Address [address] [place] [address] Care Team Providers Care Marketing Strategy Analyst Name Role Phone EdonTres Marmolejo DO Primary Care Provider + Reason for Visit * Reason Comments Pain Fracture Encounter Details Date Type Department Care Team (Late st Contact Info) Description 06/29/2024 11:15 AM RESIDENTIAL DOOR UNIT INSTALLER Office Visit [facility] Hand Surgery [address] [place] [address] [place] [phone] Eren Erickson MD [address] [place] [address] Other closed intra-articular fracture of distal end [...] on file Legal Sex Male 6:55 PM RESIDENTIAL DOOR UNIT INSTALLER Gender Identity Not on file Sexual Orientation Not on file documented as of this encounter Progress Notes * Eren Erickson MD - 06/29/2024 11:15 AM CST Images from the original note were not included. Patient ID: Mir Maharaj is a 64 y.o. male. Visit Date: 06/29/2024 Chief Complaint: Right wrist fracture treated non operatively for 5 weeks HPI: This 64 y.o. male returns with 0/10 pain no numbness paresthesias no loss of function of the digitsof the right hand Past Medical History: Diagnosis Date Arthritis Gout No past surgical history on file. Allergies Allergen Reactions Azithromycin Rash Physical Exam: His gait is within normal limits. His mood and affect are appropriate. He is well nourished. He is alert and oriented to time and place. He has no tenderness at the distal radius location today minimal swelling. His skin is intact with good perfusion to the right hand. Normal flexion extension of the digits of the right hand Xray / Imaging: AP lateral and oblique x-rays of the right wrist show a healed distal radius fracture mild arthritic changes 1. Other closed intra-articular fracture of distal end of right radius with routine healing, subsequent encounter PLAN: He will go into a removable brace and he is educated as to brace use for the next 3 weeks followed by coming out of the brace full-time and performing activities as tolerated. He will follow-up with me on an as-needed basis all questions were answered and he agrees with this plan Procedures DENTIAL DOOR UNIT INSTALLER documented in this encounter Plan of Treatment Not on file documented as of this encounter Results * XR Wrist Right 3 or More Views (06/29/2024 11:40 AM RESIDENTIAL DOOR UNIT INSTALLER) Anatomical Region Laterality Modality Upper Extremities, Wrist Right Compute d Radiography 07/06/2024 6:50 AM RESIDENTIAL DOOR UNIT INSTALLER Narrative 07/06/2024 6:51 AM RESIDENTIAL DOOR UNIT INSTALLER EXAM DESCRIPTION: XR WRIST RIGHT 3 OR [...] AM - Electronically signed by ??Eren Erickson D: ??07/06/2024 6:51 AM T: Report ID: [id number] Reading Location: ??[place] [address] Procedure Note Eren Erickson MD - 07/06/2024 [...] signed by Eren Erickson T: Report ID: [id number] Reading Location: [place] [address] Eren Erickson MD IMG XR PROCEDURES Final Result documented in this encounter Visit Diagnoses Diagnosis Other closed intra-articular fracture of distal end of right radius with routine healing, subsequent encounter- Primary Other closed intra-articular fracture of distal end of right radius with routine healing, subsequent encounter documented in this encounter Care Teams Marketing Strategy Analyst Relationship Specialty Start Date End Date Tres Mccann DO PCP - General Family Medicine 02/24/19 documented as of this encounter
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
--- OUTSIDE RECORDS SUMMARY | 2024-07-23 13:11 | XMS_ITS | Encounter Summary ---
Author Organization [facility] Healthcare Address [address] [place] [address] Care Team Providers Care Marketing Content Coordinator Name Role Phone Tres Mccann DO Primary Care Provider + Encounter Details Date Type Department Care Team (Latest Contact Info) Description 06/29/2024 11:28 AM PRINTER'S ASSISTANT - 06/29/2024 11:59 PM PRINTER'S ASSISTANT Hospital Encounter [facility] Diag Imaging [address] [place] [address] Other closed intra-articular fracture of distal end [...] on file Legal Sex Male 6:55 PM PRINTER'S ASSISTANT Gender Identity Not on file Sexual Orientation [...] tablet 05/29/2024 documented as of this encounter Discharge Disposition Disposition Code Departure Means Destination Discharge to home or self care documented in this encounter Plan of Treatment Not on file documented as of this encounter Procedures Procedure Name Priority Date/Time Associated Diagnosis Comments XR WRIST RIGHT 3 OR MORE VIEWS Schedule Routine, Read Routine (OP Routine) 06/29/2024 11:40 AM PRINTER'S ASSISTANT Other closed intra-articular fracture of distal end of right radius with routine healing, subsequent encounter documented in this encounter Results * XR Wrist Right 3 or More Views (06/29/2024 11:40 AM PRINTER'S ASSISTANT) Anatomical Region Laterality Modality Upper Extremities, Wrist Right Compute d Radiography 07/06/2024 6:50 AM PRINTER'S ASSISTANT Narrative 07/06/2024 6:51 AM PRINTER'S ASSISTANT EXAM DESCRIPTION: XR WRIST RIGHT 3 OR [...] 6:51 AM - Electronically signed by ??Eren MAIN D: ??07/06/2024 6:51 AM T: Report ID: [id number] Reading Location: ??[place] [address] Procedure Note Eren Erickson MD - 07/06/2024 [...] signed by Eren Erickson T: Report ID: [id number] Reading Location: [place] [address] Eren Erickson MD IMG XR PROCEDURES Final Result documented in this encounter Visit Diagnoses Diagnosis Other closed intra-articular fracture of distal end of right radius with routine healing, subsequent encounter documented in this encounter Care Teams Marketing Content Coordinator Relationship Specialty Start Date End Date Tres Mccann DO PCP - General Family Medicine 02/24/19 documented as of this encounter
--- OUTSIDE RECORDS SUMMARY | 2024-07-23 13:12 | XMS_ITS | Encounter Summary ---
Author Organization [facility] Healthcare Address [address] [place] [address] Care Team Providers Care Water Resource Engineer Name Role Phone Tres Mccann DO Primary Care Provider + Encounter Details Date Type Department Care Team (Late st Contact Info) Description 02/25/2019 9:02 AM CDT Hospital Encounter [facility] Tres Mccann DO [address] [address] Social History Tobacco Use Types Packs/Day Years Used Date Smoking Tobacco: Former Smokeless Tobacco: Never Alcohol Use Standard Drinks/Week Comments Not Currently 0 (1 standard drink = 0.6 oz pur e alcohol) Sex and Gender Information Value Date Recorded Sex Assigned at Not on file Legal Sex Male 6:55 PM SPORTS BOOKMAKER Gender Identity Not on file Sexual Orientation Not on file documented as of this encounter Medications at Time of Discharge meloxicam (MOBIC) 7.5 mg tablet Take 1 tablet (7.5 mg total) by mouth daily 30 tablet 11 02/25/2019 02/25/2020 sildenafil (VIAGRA) 100 mg tablet 100 mg daily 09/24/2016 05/08/2020 documented as of this encounter Plan of Treatment Not on file documented as of this encounter Procedures Procedure Name Priority Date/Time Associated Diagnosis Comments XR KNEE RIGHT 3 VIEWS 02/25/2019 9:06 AM CDT XR KNEE LEFT 3 VIEWS 02/25/2019 9:05 AM CDT documented in this encounter Results * XR Knee Right 3 Views (02/25/2019 9:06 AM CDT) Anatomical Region Laterality Modality Lower Extremities, Knee Right Radiogra phic Imaging 02/26/2019 7:31 AM CDT Narrative 02/26/2019 7:32 AM CDT Patient Name: SHITAL CEVALLOS ?Ordering Dr: Tres Mccann DO ?? D.O.B: 1960 ? Exam Date: 02/25/19 ?? 09 ?? Age: 58 ?Sex: Male ? MR#: [id number] ?? Loc: ? RADIOLOGY REPORT ?? Order #[id number] ?? Radiology ? Knee RT 3 View (STANDARD) ? Signed ?? EXAM DESCRIPTION: ??Knee RT 3 View (STANDARD) ? REASON FOR STUDY: ??PAIN IN BILATERAL KNEES FOR A WEEK ? TECHNIQUE: ??Helms, lateral, sunrise views of the right knee were obtained. ? COMPARISON: ??None available ? FINDINGS: ? No significant fullness in the suprapatellar space is noted. ??No radiopaque ?? foreign bodies are identified. ??Mild joint space narrowing in the ?? patellofemoral compartment is noted. ??There is also mild joint space narrowing ?? within medial central weight-bearing compartment with equivocal marginal ?? osteophyte formation. ? IMPRESSION: ??Minimal osteoarthritic changes of the knee. ? No fracture. ? THIS IS AN ELECTRONICALLY VERIFIED FINAL REPORT ?? 02/26/2019 7:32 AM - Electronically signed by González Hernandez M.D. ?? González Hernandez M.D. ? AT ?? D: ??02/26/2019 7:32 AM ?? T: ? Report ID: [id number] ?? Reading Location: ??[id number] ? REPORT ELECTRONICALLY SIGNED IN OTHER VENDOR SYSTEM ?? Resulting Agency Comment O Procedure Note González Hernandez MD - 02/26/2019 Patient Name: SHITAL CEVALLOS Dr: Tres MccannO.B: 1960 Exam Date: 02/25/19905 Age: 58 Sex: Male MR#: [id number] Loc: RADIOLOGY REPORT Order #[id number] Radiology Knee RT 3 View (STANDARD) Signed EXAM DESCRIPTION: Knee RT 3 View (STANDARD) REASON FOR STUDY: PAIN IN BILATERAL KNEES FOR A WEEK TECHNIQUE: Helms, lateral, sunrise views of the right knee wereobtained. COMPARISON: None available FINDINGS: No significant fullness in the suprapatellar space is noted. Noradiopaque foreign bodies are identified. Mild joint space narrowing in the patellofemoral compartment is noted. There is also mild joint spacenarrowing within medial central weight-bearing compartment with equivocal marginal osteophyte formation. IMPRESSION: Minimal osteoarthritic changes of the knee. No fracture. THIS IS AN ELECTRONICALLY VERIFIED FINAL REPORT 02/26/2019 7:32 AM - Electronically signed by González Hernandez M.D. AT T: Report ID: [id number] Reading Location: [id number] REPORT ELECTRONICALLY SIGNED IN OTHER VENDOR SYSTEM Tres Mccann DO IMG XR PROCEDURES Final Result * XR Knee Left 3 Views (02/25/2019 9:05 AM CDT) Anatomical Region Laterality Modality Lower Extremities, Knee Left Radiogra phic Imaging 02/26/2019 7:29 AM CDT Narrative 02/26/2019 7:31 AM CDT Patient Name: SHITAL CEVALLOS ?Ordering Dr: Tres Mccann DO ?? D.O.B: 1960 ? Exam Date: 02/25/19 ?? 904 ?? Age: 58 ?Sex: Male ? MR#: [id number] ?? Loc: ? RADIOLOGY REPORT ?? Order #[id number] ?? Radiology ? Knee LT 3 View (STANDARD) ? Signed ?? EXAM DESCRIPTION: ??Knee LT 3 View (STANDARD) ? REASON FOR STUDY: ??PAIN IN BILATERAL KNEES FOR A WEEK ? TECHNIQUE: ??Helms, lateral, sunrise views of the left knee were obtained. ? COMPARISON: ??01/22/2016 ? FINDINGS: ? No significant fullness is seen within the suprapatellar space. ??Enthesophyte ?? formation at the insertion of the quadriceps and origin of the patellar ?? tendons is noted. ??Minimal joint space narrowing in the medial central ?? weight-bearing compartment is noted. ??There is no fracture. ??No radiopaque ?? foreign bodies are seen. ? IMPRESSION: ??Minimal arthritic changes of the left knee ? THIS IS AN ELECTRONICALLY VERIFIED FINAL REPORT ?? 02/26/2019 7:31 AM - Electronically signed by González Hernandez M.D. ?? González Hernandez M.D. ? AT ?? D: ??02/26/2019 7:31 AM ?? T: ? Report ID: [id number] ?? Reading Location: ??[id number] ? REPORT ELECTRONICALLY SIGNED IN OTHER VENDOR SYSTEM ?? Resulting Agency Comment O Procedure Note González Hernandez MD - 02/26/2019 Patient Name: SHITAL CEVALLOS Dr: Tres Mccann DO, D.O.B: 1960 Exam Date: 02/25/19904 Age: 58 Sex: Male MR#: [id number] Loc: RADIOLOGY REPORT Order #[id number] Radiology Knee LT 3 View (STANDARD) Signed EXAM DESCRIPTION: Knee LT 3 View (STANDARD) REASON FOR STUDY: PAIN IN BILATERAL KNEES FOR A WEEK TECHNIQUE: Helms, lateral, sunrise views of the left knee wereobtained. COMPARISON: 01/22/2016 FINDINGS: No significant fullness is seen within the suprapatellar space.Enthesophyte formation at the insertion of the quadriceps and origin of the patellar tendons is noted. Minimal joint space narrowing in the medial central weight-bearing compartment is noted. There is no fracture. Noradiopaque foreign bodies are seen. IMPRESSION: Minimal arthritic changes of the left knee THIS IS AN ELECTRONICALLY VERIFIED FINAL REPORT 02/26/2019 7:31 AM - Electronically signed by González Hernandez M.D. AT T: Report ID: [id number] Reading Location: [place] [address] REPORT ELECTRONICALLY SIGNED IN OTHER VENDOR SYSTEM Tres Mccann DO IMG XR PROCEDURES Final Result documented in this encounter Visit Diagnoses Not on filedocumented in this encounter Care Teams Water Resource Engineer Relationship Specialty Start Date End Date Tres Mccann DO PCP - General Family Medicine 02/24/19 documented as of this encounter
--- OUTSIDE RECORDS SUMMARY | 2024-07-23 13:12 | XMS_ITS | Encounter Summary ---
Author Organization [facility] Address [address] [place] [address] Care Team Providers Care Property Controller Name Role Phone Tres Mccann DO Primary Care Provider + Encounter Details Date Type Department Care Team (Late st Contact Info) Description 04/23/2020 Telephone [facility] Family Medicine [address] [place] [phone] Tres Mccann DO [address] [facility] [address] [place], [place] [address] Social History Tobacco Use Types Packs/Day Years Used Date Smoking Tobacco: Former Smokeless Tobacco: Never Alcohol Use Standard Drinks/Week Comments Not Currently 0 (1 standard drink = 0.6 oz pur e alcohol) Sex and Gender Information Value Date Recorded Sex Assigned at Not on file Legal Sex Male 6:55 PM TREE KILLER Gender Identity Not on file Sexual Orientation Not on file documented as of this encounter Miscellaneous Notes * Telephone Encounter - Janice Guardado - 04/25/2020 1:24 PM CDT error documented in this encounter Plan of Treatment Not on file documented as of this encounter Visit Diagnoses Not on filedocumented in this encounter Care Teams Property Controller Relationship Specialty Start Date End Date Tres Mccann DO PCP - General Family Medicine 02/24/19 documented as of this encounter
--- OUTSIDE RECORDS SUMMARY | 2024-07-23 13:12 | XMS_ITS | Encounter Summary ---
Author Organization [facility] Address [address] [place] [address] Care Team Providers Care Gas Combustion Engineer Name Role Phone Tres Mccann DO Primary Care Provider + Reason for Visit * Reason Onset Date Comments Med Refill 06/07/2020 Encounter Details Date Type Department Care Team (Late st Contact Info) Description 06/07/2020 Telephone [facility] Family Medicine [address] [place] [address] Tres Mccann DO [address] [facility] [address] [place] [address] Med Refill Social History Tobacco Use Types Packs/Day Years Used Date Smoking Tobacco: Former Smokeless Tobacco: Never Alcohol Use Standard Drinks/Week Comments Not Currently 0 (1 standard drink = 0.6 oz pur e alcohol) Sex and Gender Information Value Date Recorded Sex Assigned at Not on file Legal Sex Male 6:55 PM MINUTE CLERK Gender Identity Not on file Sexual Orientation Not on file documented as of this encounter Ordered Prescriptions Prescription Sig Dispense Quantity Refills Last Filled Start Date End Date sildenafiL (VIAGRA) 100 mg tablet Take 1 tablet (100 mg total) by mouth daily as needed for erectile dysfunction 12 tablet 1 06/08/2020 1 documented in this encounter Miscellaneous Notes * Addendum Note - Desiree Blancas RN - 06/08/2020 10:30 AM CSTAddended by: DESIREE BLANCAS on: 06/08/2020 10:30 AM Modules accepted: Orders TE CLERK * Telephone Encounter - Desiree Blancas RN - 06/08/2020 10:30 AM CST sent TE CLERK * Telephone Encounter - Tres Mccann DO - 06/07/2020 6:19 PM MINUTE CLERK ok TE CLERK * Telephone Encounter - Prachi Palacio MA - 06/07/2020 3:02 PM CST Patient requesting Sildenafil 100mg. Is this ok to fill? TE CLERK documented in this encounter Plan of Treatment Not on file documented as of this encounter Visit Diagnoses Not on filedocumented in this encounter Care Teams Gas Combustion Engineer Relationship Specialty Start Date End Date Tres Mccann DO PCP - General Family Medicine 02/24/19 documented as of this encounter
--- OUTSIDE RECORDS SUMMARY | 2024-07-23 13:12 | XMS_ITS | Encounter Summary ---
Author Organization [facility] Healthcare Address [address] [place] [address] Care Team Providers Care Right Of Way Clearer Name Role Phone Tres Mccann DO Primary Care Provider + Encounter Details Date Type Department Care Team (Late st Contact Info) Description 03/10/2020 7:17 AM CDT Hospital Encounter [facility] Tres Mccann DO [address] [address] Social History Tobacco Use Types Packs/Day Years Used Date Smoking Tobacco: Former Smokeless Tobacco: Never Alcohol Use Standard Drinks/Week Comments Not Currently 0 (1 standard drink = 0.6 oz pur e alcohol) Sex and Gender Information Value Date Recorded Sex Assigned at Not on file Legal Sex Male 6:55 PM METHOD CONSULTANT Gender Identity Not on file Sexual Orientation Not on file documented as of this encounter Medications at Time of Discharge meloxicam (MOBIC) 7.5 mg tablet Take 1 tablet (7.5 mg total) by mouth daily 90 tablet 3 02/29/2020 02/15/2021 sildenafil (VIAGRA) 100 mg tablet 100 mg daily 09/24/2016 05/08/2020 documented as of this encounter Plan of Treatment Not on file documented as of this encounter Visit Diagnoses Not on filedocumented in this encounter Care Teams Right Of Way Clearer Relationship Specialty Start Date End Date Tres Mccann DO PCP - General Family Medicine 02/24/19 documented as of this encounter
--- OUTSIDE RECORDS SUMMARY | 2024-07-23 13:12 | XMS_ITS | Encounter Summary ---
Author Organization [facility] Address [address] [place] [address] Care Team Providers Care Wire Drawing Die Maker Name Role Phone Tres Mccann DO Primary Care Provider + Reason for Visit * Reason Comments Knee Pain swelling Varicose Veins Encounter Details Date Type Department Care Team (Late st Contact Info) Description 02/25/2019 7:30 AM CDT Office Visit [facility] Medical [facility] Family Medicine [address] [place] [id number] Tres Mccann DO [address] [facility] [address] [place] [address] Annual physical exam (Primary Dx); Acute pain of both knees Social History Tobacco Use Types Packs/Day Years Used Date Smoking Tobacco: Former Smokeless Tobacco: Never Alcohol Use Standard Drinks/Week Comments Not Currently 0 (1 standard drink = 0.6 oz pur e alcohol) Sex and Gender Information Value Date Recorded Sex Assigned at Not on file 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 Gender Identity Not on file Sexual Orientation Not on file documented as of this encounter Last Filed Vital Signs Vital Sign Reading Time Taken Comments Blood Pressure 134/98 02/25/2019 7:54 AM CDT Pulse 60 02/25/2019 7:54 AM CDT Temperature 36.4 ??C (97.5 ??F) 02/25/2019 7:54 AM CD T Respiratory Rate 18 02/25/2019 7:54 AM CDT Oxygen Saturation 96% 02/25/2019 7:54 AM CDT Inhaled Oxygen Concentration - - Weight 125.2 kg (276 lb) 02/25/2019 7:54 AM CDT Height 172.7 cm (5' 8 ) 02/25/2019 7:54 AM CDT Body Mass Index 41.97 02/25/2019 7:54 AM CDT documented in this encounter Ordered Prescriptions Prescription Sig Dispense Quantity Refills Last Filled Start Date End Date meloxicam (MOBIC) 7.5 mg tablet Take 1 tablet (7.5 mg total) by mouth daily 30 tablet 11 02/25/2019 02/25/2020 documented in this encounter Progress Notes * Tres Mccann, DO - 02/25/2019 7:30 AM CDT Subjective/Objective Patient ID: Mir Maharaj is a 58 y.o. male. Chief Complaint Knee Pain (swelling) and Varicose Veins HPI Knees hurting Worse after activity No calf pain Annual physical History reviewed. No pertinent past medical history. History reviewed. No pertinent surgical history. Patient Active Problem List Diagnosis Date Noted ??? Knee pain 02/25/2019 ??? Annual physical exam 02/25/2019 Current Outpatient Medications Medication Sig Dispense Refill ??? meloxicam (MOBIC) 7.5 mg tablet Take 1 tablet (7.5 mg total) by mouth daily 30 tablet 11 ??? sildenafil (VIAGRA) 100 mg tablet 100 mg daily No current facility-administered medications for this visit. Allergies as of 02/25/2019 - Reviewed 02/25/2019 Allergen Reaction Noted ??? Azithromycin Rash 02/25/2019 Social History Socioeconomic History ??? Marital status: Spouse name: None ??? Number of children: None ??? Years of education: None ??? Highest education level: None Occupational History ??? None Social Needs ??? Financial resource strain: None ??? Food insecurity: Worry: None Inability: None ??? Transportation needs: Medical: None Non-medical: None Tobacco Use ??? Smoking status: Former Smoker ??? Smokeless tobacco: Never Used Substance and Sexual Activity ??? Alcohol use: Not Currently ??? Drug use: None ??? Sexual activity: None Lifestyle ??? Physical activity: Days per week: None Minutes per session: None ??? Stress: None Relationships ??? Social connections: Talks on phone: None Gets together: None Attends sabianism service: None Active member of club or organization: None Attends meetings of clubs or organizations: None Relationship status: None ??? Intimate partner violence: Fear of current or ex partner: None Emotionally abused: None Physically abused: None Forced sexual activity: None Other Topics Concern ??? None Social History Narrative ??? None Family History Problem Relation Age of Onset ??? Diabetes Father ??? Heart disease Father ??? Other (siblings - liver cancer, lung cancer) Other Review of Systems Constitutional: Negative for activity [...] Psychiatric/Behavioral: Negative for confusion and sleep disturbance. BP 134/98 Pulse 60 Temp 36.4 ??C (97.5 ??F) Resp 18 Ht 172.7 cm (5' 8 ) Wt 125.2 kg (276 lb) SpO2 96% BMI 41.97 kg/m?? Physical Exam Constitutional: He is oriented to person, place, and time. He appears well- developed and well-nourished. HENT: Head: Normocephalic and atraumatic. Right Ear: External ear normal. Left Ear: External ear normal. Nose: Nose normal. Mouth/Throat: Oropharynx is clear and moist. Eyes: Conjunctivae and EOM are normal. Neck: Normal range of motion. Neck supple. No thyromegaly present. Cardiovascular: Normal rate, regular rhythm and normal heart sounds. Pulmonary/Chest: Effort normal and breath sounds normal. Abdominal: Soft. He exhibits no distension. There is no tenderness. Musculoskeletal: Normal range of motion. He exhibits no deformity. Lymphadenopathy: He has no cervical adenopathy. Neurological: He is alert and oriented to person, place, and time. Coordination normal. Skin: Skin is warm and dry. Psychiatric: He has a normal mood and affect. His behavior is normal. Judgment and thought content normal. Nursing note and vitals reviewed. No visits with results within 2 Week(s) from this visit. Latest known visit with results is: No results found for any previous visit. Assessment/Plan Diagnoses and all orders for this visit: Annual physical exam (Z00.00) (Primary) Assessment & Plan: lab Orders: - Basic metabolic panel; Future - Hepatic function panel; Future - Lipid panel; Future - TSH; Future - PSA screen; Future - Urinalysis reflex to microscopic and culture Urine, clean voided; Future - CBC with auto differential; Future - Uric acid; Future - XR Knee Left 3 Vw; Future - XR Knee Right 3 Vw; Future Acute pain of both knees (M25.561, M25.562) Assessment & Plan: Knee xr Orders: - Basic metabolic panel; Future - Hepatic function panel; Future - Lipid panel; Future - TSH; Future - PSA screen; Future - Urinalysis reflex to microscopic and culture Urine, clean voided; Future - CBC with auto differential; Future - Uric acid; Future - XR Knee Left 3 Vw; Future - XR Knee Right 3 Vw; Future Other orders - meloxicam (MOBIC) 7.5 mg tablet; Take 1 tablet (7.5 mg total) by mouth daily documented in this encounter Miscellaneous Notes * Assessment & Plan Note - Tres Mccann DO - 02/25/2019 8:24 AM CDT Associated Problem(s): Knee pain Knee xr * Assessment & Plan Note - Tres Mccann DO - 02/25/2019 8:24 AM CDT Associated Problem(s): Annual physical exam lab documented in this encounter Plan of Treatment Not on file documented as of this encounter Procedures Procedure Name Priority Date/Time Associated Diagnosis Comments PSA SCREEN Routine 03/05/2019 10:46 AM CDT Annual physical exam Acute pain of both knees CBC WITH AUTO DIFFERENTIAL Routine 03/05/2019 10:46 AM CDT Annual physical exam Acute pain of both knees URIC ACID Routine 03/05/2019 10:46 AM CDT Annual physical exam Acute pain of both knees TSH Routine 03/05/2019 10:46 AM CDT Annual physical exam Acute pain of both knees HEPATIC FUNCTION PANEL Routine 03/05/2019 10:46 AM CDT Annual physical exam Acute pain of both knees LIPID PANEL Routine 03/05/2019 10:46 AM CDT Annual physical exam Acute pain of both knees BASIC METABOLIC PANEL Routine 03/05/2019 10:46 AM CDT Annual physical exam Acute pain of both knees documented in this encounter Results * (ABNORMAL) Uric acid (03/05/2019 10:46 AM CDT) Uric Acid 8.9(H) 3.0 - 8.0 mg/dL [facility] Blood specimen (specimen) 03/05/2019 10:46 AM CDT 03/05/2019 11:40 AM CDT Narrative [facility] - 03/05/2019 12:12 PM CDT 12 HRS PC Resulting Agency Comment CLI us Tres Mccann DO LAB BLOOD ORDERABLES Fin al Result [facility] [address] [place] [address], [facility] [phone] * CBC with auto differential (03/05/2019 10:46 AM CDT) WBC 7.2 3.8 - 9.9 X10 3/ul [facility] RBC 5.00 4.30 - 5.80 x10 6/ul [facility] Hemoglobin 15.2 13.0 - 17.5 g/dL [facility] Hct 43.5 38.9 - 50.3 % [facility] MCV 87.0 81.3 - 96.4 fl [facility] MCH 30.4 27.1 - 33.3 pg [facility] MCHC 34.9 32.3 - 35.7 g/dl [facility] RDW 12.6 11.1 - 14.9 % [facility] Plt Count 249 150 - 400 x10 3/ul [facility] MPV 10.3 9.1 - 12.3 fl [facility] Neut % 53.7 % [facility] Immature Gran % 0.6 % [facility] Lymph % 31.3 % [facility] Hendricks % 10.1 % [facility] Eos % 3.5 % [facility] AUTO BASO % 0.8 % [facility] NEUTROPHIL ABS # 3.9 1.7 - 6.5 x10 3/ul [facility] Immature Gran # 0.0 0.0 - 0.1 x10 3/ul [facility] Absolute Lymphs (auto) 2.2 0.8 - 3.3 x10 3/ul [facility] Absolute Monos (auto) 0.7 0.2 - 0.8 x10 3/ul [facility] Absolute Eos (auto) 0.3 0.0 - 0.5 x10 3/ul [facility] BASOPHIL ABS # 0.1 0.0 - 0.1 x10 3/ul [facility] Nucleat RBC Rel Count 0.0 #/100WBC [facility] NRBC abs 0.00 0.00 - 0.01 x10 3/ul [facility] Absolute Neutrophils 3,900 200 - 8,000 /ul [facility] Blood specimen (specimen) 03/05/2019 10:46 AM CDT 03/05/2019 11:21 AM CDT Narrative Resulting Agency Comment CLI Tres Mccann DO LAB BLOOD ORDERABLES Fin al Result [address] [phone] * PSA screen (03/05/2019 10:46 AM CDT) PSA Screen 0.9 0.0 - 3.9 ng/mL [facility] Comment: Method: ECLIA Values obtained by different assay methods cannot be used interchangeably. ??Use sequential testing to confirm baseline if assay method changed during patient monitoring. Blood specimen (specimen) 03/05/2019 10:46 AM CDT 03/05/2019 11:40 AM CDT Narrative [facility] - 03/05/2019 12:12 PM CDT 12 HRS PC Resulting Agency Comment CLI Tres Mccann DO LAB BLOOD ORDERABLES Fin al Result Performing Organization Address [facility] Co de Phone Number [address] [phone] * TSH (03/05/2019 10:46 AM CDT) TSH 1.69 0.27 - 4.20 uIU/mL [facility] Blood specimen (specimen) 03/05/2019 10:46 AM CDT 03/05/2019 11:40 AM CDT Narrative [facility] - 03/05/2019 12:12 PM CDT 12 HRS PC Resulting Agency Comment CLI Tres Mccann DO LAB BLOOD ORDERABLES Fin al Result [facility] [address] [place] [address], [facility] [phone] * (ABNORMAL) Lipid panel (03/05/2019 10:46 AM CDT) Triglycerides 224(H) 0 - 149 mg/dL [facility] Comment: National Lipid Association/NCEP Guidelines: ?? Normal ?< 150 mg/dL ?? Borderline high ?? 150-199 mg/dL ?? High ?200-499 mg/dL ?? Very High ? >=500 mg/dL Cholesterol 183 0 - 199 mg/dL [facility] Comment: National Lipid Association/NCEP Guidelines: Desirable ? < 200 mg/dL Borderline high: ??200-239 mg/dL High Risk: ?>=240 mg/dL HDL Cholesterol 36 mg/dL [facility] Comment: Reference Ranges: ? Males: >=40 mg/dL ? Females: >=50 mg/dL LDL Cholesterol, Calc 102 0 - 129 mg/dL [facility] Comment: National Lipid Association/NCEP Guidelines: ??Optimal ? < 100 mg/dL ??Near Optimal ?100-129 mg/dL ??Borderline high 130-159 mg/dL ??High ?>=160 mg/dL Cholesterol/HDL Ratio 5.1 [facility] Comment: Optimal ??< 3.5:1 High ? > 5:1 Blood specimen (specimen) 03/05/2019 10:46 AM CDT 03/05/2019 11:40 AM CDT Narrative [facility] - 03/05/2019 12:12 PM CDT 12 HRS PC Resulting Agency Comment CLI Tres Mccann DO LAB BLOOD ORDERABLES Fin al Result [facility] [address] [place] [address] * Hepatic function panel (03/05/2019 10:46 AM CDT) Pathologist [facility] Total Protein 7.6 6.4 - 8.3 g/dL [facility] Albumin 4.3 3.5 - 5.0 g/dL [facility] Globulin 3.3 2.3 - 3.5 gm/dL [facility] Albumin/Globulin Ratio 1.3 1.1 - 1.8 [facility] Total Bilirubin 0.8 0.0 - 1.2 mg/dL [facility] Direct Bilirubin <0.20 0.00 - 0.25 mg/dL [facility] AST 29 0 - 40 U/L [facility] ALT 40 0 - 41 U/L [facility] Alkaline Phosphatase 71 40 - 129 U/L [facility] Blood specimen (specimen) 03/05/2019 10:46 AM CDT 03/05/2019 11:40 AM CDT Narrative [facility] - 03/05/2019 12:12 PM CDT 12 HRS PC Resulting Agency Comment CLI us Tres Mccann DO LAB BLOOD ORDERABLES Fin al Result [address] [phone] * Basic metabolic panel (03/05/2019 10:46 AM CDT) Pathologist [facility] Sodium 140 135 - 145 mmol/L [facility] Potassium 4.3 3.3 - 5.1 mmol/L [facility] Chloride 106 96 - 108 mmol/L [facility] Carbon Dioxide 23 22 - 32 mmol/L [facility] Anion Gap 11 7 - 16 [facility] Glucose 94 70 - 100 mg/dL [facility] BUN 22 8 - 25 mg/dL [facility] Creatinine 0.8 0.5 - 1.3 mg/dL [facility] Comment: NOTE: Estimated GFR (Cockroft-Gault) will NOT be calculated unless patient Height and Weight were entered. Also, Kidney Disease Stage (GFR) and Estimated GFR (C[place]roft-Gault) will NOT be calculated if Creatinine result is <0.2. Kidney Disease Stage >90 mL/MIN [facility] Comment: NOTE; ??The GFR is an estimated value using the creatinine, sex, age, and race of the patient. THE Estimated Kidney Disease GFR is validated for AGES 18-70 YEARS STAGE ?mL/Min ?DESCRIPTION ??1 ?90 mL/min or more ?Normal or elevated GFR ??2 ? 60-89 mL/min ?Mildly decreased GFR ??3 ? 30-59 mL/min ?Moderately decreased GFR ??4 ? 15-29 mL/min ?Severely decreased GFR ??5 ? <15 mL/min ? Kidney failure or on dialysis Calcium 8.9 8.6 - 10.3 mg/dL [facility] Blood specimen (specimen) 03/05/2019 10:46 AM CDT 03/05/2019 11:40 AM CDT Narrative [facility] - 03/05/2019 12:12 PM CDT 12 HRS PC Resulting Agency Comment CLI us Tres Mccann DO LAB BLOOD ORDERABLES Fin al Result [facility] [address] [place] [address], [facility] [phone] documented in this encounter Visit Diagnoses Diagnosis Annual physical exam- Primary Routine general medical examination at a health care facility Acute pain of both knees documented in this encounter Historical Medications * This list may reflect changes made after this encounter. sildenafil (VIAGRA) 100 mg tablet 100 mg daily 09/24/2016 05/08/2020 added in this encounter Orders Lab Orders Without Results Count Last Ordered D ate First Ordered Date URINALYSIS AND REFLEX TO STARR ROSCOPIC AND CULTURE 1 02/25/2019 documented in this encounter Care Teams Wire Drawing Die Maker Relationship Specialty Start Date End Date Tres Mccann DO PCP - General Family Medicine 02/24/19 documented as of this encounter
--- OUTSIDE RECORDS SUMMARY | 2024-07-23 13:12 | XMS_ITS | Encounter Summary ---
Author Organization [facility] Address [address] [place] [address] Care Team Providers Care French Instructor Name Role Phone Unavailable Primary Care Provider Unavailabl e Encounter Details Date Type Department Care Team (Latest Contact Info) Description 01/22/2016 11:51 AM CDT Hospital Encounter [facility] OP Tres Mccann, DO [address] 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 Gender Identity Not on file Sexual Orientation Not on file documented as of this encounter Plan of Treatment Not on file documented as of this encounter Procedures Procedure Name Priority Date/Time Associated Diagnosis Comments CBC WITH AUTO DIFFERENTIAL Routine 01/22/2016 12:09 PM CDT URIC ACID Routine 01/22/2016 12:09 PM CDT XR KNEE LEFT 1 OR 2 VIEWS Routine 01/22/2016 12:00 AM CDT documented in this encounter Results * (ABNORMAL) CBC with auto differential (01/22/2016 12:09 PM CDT) WBC 10.0 4.6 - 10.2 x10 3/ul RBC 4.77 4.11 - 5.71 x10 6/ul 01/22/2016 12:36 PM CDT [facility] HISTORICAL RESULTS Hemoglobin 14.2 13.0 - 17.0 g/dl Hct 41.5 38.2 - 48.5 % MCV 87.0 80.0 - 97.0 fl MCH 29.8 27.0 - 31.2 pg MCHC 34.2 31.8 - 35.4 g/dl RDW 12.9 11.6 - 14.8 % Plt Count 237 124 - 400 x10 3/ul MPV 11.0(H) 7.4 - 10.4 fl Neut % 69.4 37.0 - 85.0 % Immature Gran % 0.4 0.0 - 3.0 % Lymph % 18.4 5.0 - 45.0 % 01/22/2016 12:36 PM CDT [facility] HISTORICAL RESULTS [place] % 9.6 3.0 - 15.0 % 01/22/2016 12:36 PM CDT [facility] HISTORICAL RESULTS Eos % 1.6 0.0 - 7.0 % 01/22/2016 12:36 PM CDT [facility] HISTORICAL RESULTS Baso % 0.6 0.0 - 2.0 % 01/22/2016 12:36 PM CDT [facility] HISTORICAL RESULTS Absolute Neuts (auto) 7.0 1.7 - 8.7 x10 3/ul Immature Gran # 0.0 0.0 - 0.3 x10 3/ul Absolute Lymphs (auto) 1.8 0.2 - 4.6 x10 3/ul Absolute Monos (auto) 1.0 0.1 - 1.5 x10 3/ul Absolute Eos (auto) 0.2 0.0 - 0.7 x10 3/ul Absolute Basos (auto) 0.1 0.0 - 0.2 x10 3/ul 01/22/2016 12:0 9 PM CDT 01/22/2016 12:31 PM CDT Tres Mccann DO LAB BLOOD ORDERABLES Fin al Result [facility] HISTORICAL RESULTS * (ABNORMAL) Uric acid (01/22/2016 12:09 PM CDT) Uric Acid 7.6(H) 3.4 - 7.0 mg/dL 01/22/2016 12:0 9 PM CDT 01/22/2016 12:31 PM CDT Tres Mccann DO LAB BLOOD ORDERABLES Fin al Result [facility] HISTORICAL RESULTS * XR Knee Left 1 or 2 Views (01/22/2016 12:00 AM CDT) Anatomical Region Laterality Modality Lower Extremities, Knee Left Radiogra phic Imaging 01/22/2016 Impressions 01/23/2016 6:45 AM CDT ??Mild to moderate arthritic change of left knee. ??No acute findings. THIS IS AN ELECTRONICALLY VERIFIED REPORT 01/23/2016 6:42 AM: ??Deric Stubbs M.D. ?? Deric Stubbs M.D. RN:rn 06:42 AM 06:42 AM NOR [EOD] Narrative 01/23/2016 6:45 AM CDT LEFT KNEE HISTORY: ??Left knee pain since yesterday. ??No injury. FINDINGS: ??AP and lateral views of left knee reveals mild to moderate tricompartmental arthritic change. ??There is no evidence of an acute or healing fracture or articular abnormality. ??Soft tissues are unremarkable. Procedure Note Provider, MD Morgan - 12/11/2020 LEFT KNEE HISTORY: Left knee pain since yesterday. No injury. FINDINGS: AP and lateral views of left knee reveals mild to moderate tricompartmental arthritic change. There is no evidence of an acute or healing fracture or articular abnormality. Soft tissues areunremarkable. IMPRESSION: Mild to moderate arthritic change of left knee. No acute findings. THIS IS AN ELECTRONICALLY VERIFIED REPORT 01/23/2016 6:42 AM: Deric Stubbs M.D. Deric Stubbs M.D. RN:sheila 06:42 AM 06:42 AM NOR [EOD] Tres Mccann DO IMG XR PROCEDURES Final Result documented in this encounter Visit Diagnoses Diagnosis Pain in left knee Primary osteoarthritis of left knee documented in this encounter
--- OUTSIDE RECORDS SUMMARY | 2024-07-23 13:12 | XMS_ITS | Encounter Summary ---
Author Organization [facility] Address [address] [place] [address] Care Team Providers Care Cinema Or Theatre Manager Name Role Phone Unavailable Primary Care Provider Unavailabl e Encounter Details Date Type Department Care Team (Latest Contact Info) Description 10/07/2016 6:05 AM CDT - 10/24/2016 6:05 AM CDT Hospital Encounter [facility] OP Tres Mccann, DO [address] [address] Encounter for general adult medical examination without abnormal findings; Encounter for screening for malignant neoplasm of prostate Social History Tobacco Use Types Packs/Day Years Used Date Smoking Tobacco: Never Assessed Sex and Gender Information Value Date Recorded Sex Assigned at Not on file 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 Gender Identity Not on file Sexual Orientation Not on file documented as of this encounter Medications at Time of Discharge sildenafil (VIAGRA) 100 mg tablet 100 mg daily 09/24/2016 05/08/2020 documented as of this encounter Plan of Treatment Not on file documented as of this encounter Procedures Procedure Name Priority Date/Time Associated Diagnosis Comments SCAN - LABS 10/10/2016 12:00 AM CDT THYROID FUNCTION CASCADE Routine 10/07/2016 6:33 AM CDT PSA SCREEN Routine 10/07/2016 6:33 AM CDT MISCELLANEOUS LAB TEST Routine 7 6:33 AM CDT HEPATIC FUNCTION PANEL Routine 7 6:33 AM CDT LIPID PANEL Routine 10/07/2016 6:33 AM CDT BASIC METABOLIC PANEL Routine 10/07/2016 6:33 AM CDT documented in this encounter Results * SCAN - LABS (10/10/2016 12:00 AM CDT) Narrative 10/10/2016 12:00 AM CDT Ordered by an unspecified provider. Historical Provider MD Final Res ult * - Miscellaneous Lab Test (10/07/2016 6:33 AM CDT) Ref Lab Test Name HERPES1 &2 AB [facility] Comment: Note: Results via Scanned Reports in EMR or by paper report only. Specimen sent to Reference lab. Results usually in 2-7 days. 10/07/2016 6:33 AM CDT 10/07/2016 6:40 AM CDT Tres Mccann DO LAB BLOOD ORDERABLES Fin al Result [facility] HISTORICAL RESULTS * TSH reflex to free T4 (10/07/2016 6:33 AM CDT) TSH W REFLEX TO FT4 2.00 0.27 - 4.20 uIU/mL 10/07/2016 6:33 AM CDT 10/07/2016 6:40 AM CDT Narrative [facility] HISTORICAL RESULTS - 10/07/2016 7:14 AM CDT ORDERING FOR HERPES TEST ASSISTED BY METEOROLOGICAL AIDE DARYL Tres Mccann DO LAB BLOOD ORDERABLES Fin al Result Performing Organization Address [facility] Co de Phone Number [facility] HISTORICAL RESULTS * PSA screen (10/07/2016 6:33 AM CDT) [facility] PSA Screen 0.8 0.0 - 3.9 ng/mL Comment: Method: ECLIA Values obtained by different assay methods cannot be used interchangeably. ??Use sequential testing to confirm baseline if assay method changed during patient monitoring. 10/07/2016 6:33 AM CDT 10/07/2016 6:40 AM CDT [facility] - 10/07/2016 7:44 AM CDT ORDERING FOR HERPES TEST ASSISTED BY [employer] DARYL Tres Mccann DO LAB BLOOD ORDERABLES Fin al Result Performing Organization Address [facility] de Phone Number [facility] * Hepatic function panel (10/07/2016 6:33 AM CDT) [facility] Total Protein 7.0 6.4 - 8.3 g/dL Albumin 4.3 3.5 - 5.2 g/dL Globulin 2.7 2.3 - 3.5 gm/dL Albumin/Globulin Ratio 1.6 1.1 - 1.8 10/07/2016 7:08 AM [facility] Total Bilirubin 0.5 0.0 - 1.2 mg/dL Direct Bilirubin < 0.20 0.00 - 0.25 mg/dL 10/07/2016 7:08 AM [facility] AST 25 0 - 40 U/L 10/07/2016 7:08 AM [facility] ALT 38 0 - 41 U/L Alkaline Phosphatase 69 40 - 129 U/L 10/07/2016 6:33 AM CDT 10/07/2016 6:40 AM CDT Narrative [facility] HISTORICAL RESULTS - 10/07/2016 7:08 AM CDT ORDERING FOR HERPES TEST ASSISTED BY METEOROLOGICAL AIDE DARYL Tres Mccann DO LAB BLOOD ORDERABLES Fin al Result Performing Organization Address [facility] Co de Phone Number [facility] HISTORICAL RESULTS * (ABNORMAL) Lipid panel (10/07/2016 6:33 AM CDT) Triglycerides 190 0 - 199 mg/dL Comment:12 hr pc highly nguyễn mmended for Triglyceride Cholesterol 164 0 - 199 mg/dL Comment: Borderline: ??200-239 High Risk: ?? >239 HDL Cholesterol 38(L) 40 - 60 mg/dL Comment: Major Risk ?< 40 mg/dL Moderate Risk ?40-60 mg/dL Negative Risk ?? > 60 mg/dL LDL Cholesterol, Calc 88 0 - 130 mg/dL Comment:High Risk > 159 mg/d L Cholesterol/HDL Ratio 4.3 Comment: Cholesterol / HDL Ratio 3.5:1 or less is desirable. Cholesterol / HDL Ratio greater than 5:1 is considered higher risk for developing heart disease. 10/07/2016 6:33 AM CDT 10/07/2016 6:40 AM CDT Narrative [facility] HISTORICAL RESULTS - 10/07/2016 7:08 AM CDT ORDERING FOR HERPES TEST ASSISTED BY METEOROLOGICAL AIDE DARYL Tres Mccann DO LAB BLOOD ORDERABLES Fin al Result Performing Organization Address [facility]/ZIP Co de Phone Number [facility] HISTORICAL RESULTS * (ABNORMAL) Basic metabolic panel (10/07/2016 6:33 AM CDT) Sodium 143 135 - 145 mmol/L Potassium 4.3 3.3 - 5.1 mmol/L Chloride 103 96 - 108 mmol/L Carbon Dioxide 27 22 - 32 mmol/L Anion Gap 13 7 - 16 Glucose 102(H) 70 - 100 mg/dL BUN 17 6 - 20 mg/dL Creatinine 0.8 0.5 - 1.3 mg/dL Comment: NOTE: Estimated GFR (Cockroft-Gault) will NOT be calculated unless patient Height and Weight were entered. Also, Kidney Disease Stage (GFR) and Estimated GFR (Cockroft-Gault) will NOT be calculated if Creatinine result is <0.2. Kidney Disease Stage > 90 mL/MIN Comment: NOTE; ??The GFR is an estimated [...] mL/min ? Kidney failure or on dialysis @ Calcium 9.2 8.6 - 10.0 mg/dL 10/07/2016 7:08 AM CDT [facility] HISTORICAL RESULTS 10/07/2016 6:33 AM CDT 10/07/2016 6:40 AM CDT Narrative [facility] HISTORICAL RESULTS - 10/07/2016 7:08 AM CDT ORDERING FOR HERPES TEST ASSISTED BY [employer] DARYL Tres Mccann DO LAB BLOOD ORDERABLES Fin al Result [facility] HISTORICAL RESULTS documented in this encounter Visit Diagnoses Diagnosis Encounter for general adult medical examination without abnormal findings Encounter for screening for malignant neoplasm of prostate documented in this encounter
--- OUTSIDE RECORDS SUMMARY | 2024-07-23 13:12 | XMS_ITS | Encounter Summary ---
Author Organization [facility] Healthcare Address [address] [place] [address] Care Team Providers Care Filling Hand Name Role Phone Unavailable Primary Care Provider Unavailabl e Encounter Details Date Type Department Care Team (Latest Contact Info) Description 11/09/2017 2:37 PM CDT Hospital Encounter [facility] OP Marc Mccann MD [address] [facility] [address] [address] Encounter for screening for malignant neoplasm of prostate Social History Tobacco Use Types Packs/Day Years Used Date Smoking Tobacco: Never Assessed Sex and Gender Information Value Date Recorded Sex Assigned at Not on file 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 Gender Identity Not on file Sexual Orientation Not on file documented as of this encounter Medications at Time of Discharge sildenafil (VIAGRA) 100 mg tablet 100 mg daily 09/24/2016 05/08/2020 documented as of this encounter Plan of Treatment Not on file documented as of this encounter Procedures Procedure Name Priority Date/Time Associated Diagnosis Comments PSA SCREEN Routine 11/09/2017 2:43 PM CDT documented in this encounter Results * PSA screen (11/09/2017 2:43 PM CDT) PSA Screen 0.7 0.0 - 3.9 ng/mL Comment: Method: ECLIA Values obtained by different assay methods cannot be used interchangeably. ??Use sequential testing to confirm baseline if assay method changed during patient monitoring. 11/09/2017 2:43 PM CDT 11/09/2017 3:45 PM CDT us Marc Mccann MD LAB BLOOD ORDERABLES Final R esult [facility] HISTORICAL RESULTS documented in this encounter Visit Diagnoses Diagnosis Encounter for screening for malignant neoplasm of prostate documented in this encounter
--- OUTSIDE RECORDS SUMMARY | 2024-07-23 13:12 | XMS_ITS | Encounter Summary ---
Author Organization [facility] Address [address] [place] [address] Care Team Providers Care Sap Solution Manager Consultant Name Role Phone Tres Mccann DO Primary Care Provider + Encounter Details Date Type Department Care Team (Late st Contact Info) Description 05/22/2020 Orders Only [facility] Family Medicine [address] [facility] [place] [address] Provider, MD Morgan [address] [place] [address] Social History Tobacco Use Types Packs/Day Years Used Date Smoking Tobacco: Former Smokeless Tobacco: Never Alcohol Use Standard Drinks/Week Comments Not Currently 0 (1 standard drink = 0.6 oz pur e alcohol) Sex and Gender Information Value Date Recorded Sex Assigned at Not on file 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 Gender Identity Not on file Sexual Orientation Not on file documented as of this encounter Plan of Treatment Not on file documented as of this encounter Procedures Procedure Name Priority Date/Time Associated Diagnosis Comments COLONOSCOPY Routine 05/21/2020 documented in this encounter Results * Colonoscopy (05/21/2020) Anatomical Region Laterality Modality Other Historical Provider ENDOSCOPY PROCEDURES Dee l Result documented in this encounter Visit Diagnoses Not on filedocumented in this encounter Care Teams Sap Solution Manager Consultant Relationship Specialty Start Date End Date Tres Mccann DO PCP - General Family Medicine 02/24/19 documented as of this encounter
--- OUTSIDE RECORDS SUMMARY | 2024-07-23 13:12 | XMS_ITS | Encounter Summary ---
Author Organization [facility] Healthcare Address [address] [place] [address] Care Team Providers Care Operations Research Director Name Role Phone Unavailable Primary Care Provider Unavailabl e Encounter Details Date Type Department Care Team (Latest Contact Info) Description 10/11/2016 11:44 AM CDT Hospital Encounter [facility] OP Tres Mccann, DO [address] [address] Encounter for general adult medical examination without abnormal findings Social History Tobacco Use Types Packs/Day Years Used Date Smoking Tobacco: Never Assessed Sex and Gender Information Value Date Recorded Sex Assigned at Not on file 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 Gender Identity Not on file Sexual Orientation Not on file documented as of this encounter Medications at Time of Discharge sildenafil (VIAGRA) 100 mg tablet 100 mg daily 09/24/2016 05/08/2020 documented as of this encounter Plan of Treatment Not on file documented as of this encounter Procedures Procedure Name Priority Date/Time Associated Diagnosis Comments CBC WITH AUTO DIFFERENTIAL Routine 10/11/2016 11:58 AM CDT documented in this encounter Results * (ABNORMAL) CBC with auto differential (10/11/2016 11:58 AM CDT) WBC 7.0 4.6 - 10.2 x10 3/ul 10/11/2016 12:48 PM CDT [facility] HISTORICAL RESULTS RBC 5.08 4.11 - 5.71 x10 6/ul 10/11/2016 12:48 PM CDT [facility] HISTORICAL RESULTS Hemoglobin 14.8 13.0 - 17.0 g/dl 10/11/2016 12:48 PM CDT [facility]IST[facility] RES[facility] Hct 44.9 38.2 - 48.5 % 10/11/2016 12:48 PM CDT [facility] HISTORICAL RESULTS MCV 88.4 80.0 - 97.0 fl 10/11/2016 12:48 PM CDT [facility] HISTORICAL RESULTS MCH 29.1 27.0 - 31.2 pg 10/11/2016 12:48 PM CDT [facility] HISTORICAL RESULTS MCHC 33.0 31.8 - 35.4 g/dl RDW 12.7 11.6 - 14.8 % Plt Count 242 124 - 400 x10 3/ul MPV 10.9(H) 7.4 - 10.4 fl Neut % 54.9 37.0 - 85.0 % Immature Gran % 0.4 0.0 - 3.0 % 10/11/2016 12:48 PM CDT [facility] HISTORICAL RESULTS Lymph % 32.7 5.0 - 45.0 % 10/11/2016 12:48 PM CDT [facility] HISTORICAL RESULTS [place] % 8.9 3.0 - 15.0 % 10/11/2016 12:48 PM CDT [facility] HISTORICAL RESULTS Eos % 2.4 0.0 - 7.0 % 10/11/2016 12:48 PM CDT [facility] HISTORICAL RESULTS Baso % 0.7 0.0 - 2.0 % 10/11/2016 12:48 PM CDT [facility] HISTORICAL RESULTS Absolute Neuts (auto) 3.8 1.7 - 8.7 x10 3/ul 10/11/2016 12:48 PM CDT [facility] HISTORICAL RESULTS Immature Gran # 0.0 0.0 - 0.3 x10 3/ul 10/11/2016 12:48 PM CDT [facility] HISTORICAL RESULTS Absolute Lymphs (auto) 2.3 0.2 - 4.6 x10 3/ul 10/11/2016 12:48 PM CDT [facility] HISTORICAL RESULTS Absolute Monos (auto) 0.6 0.1 - 1.5 x10 3/ul 10/11/2016 12:48 PM CDT [facility] HISTORICAL RESULTS Absolute Eos (auto) 0.2 0.0 - 0.7 x10 3/ul Absolute Basos (auto) 0.1 0.0 - 0.2 x10 3/ul 10/11/2016 11:5 8 AM CDT 10/11/2016 12:42 PM CDT Tres Mccann DO LAB BLOOD ORDERABLES Fin al Result [facility] HISTORICAL RESULTS documented in this encounter Visit Diagnoses Diagnosis Encounter for general adult medical examination without abnormal findings documented in this encounter
--- OUTSIDE RECORDS SUMMARY | 2024-07-23 13:12 | XMS_ITS | Encounter Summary ---
Author Organization [facility] Healthcare Address [address] [place] [address] Care Team Providers Care Assistant Professor Of Biology Name Role Phone Tres Mccann DO Primary Care Provider + Reason for Referral * Diagnostic Imaging (Routine) - Closed Specialty Diagnoses / Procedures Referred By Charity parra Referred To Contact Diagnoses Acute pain of both knees Procedures XR Knee Left 3 Vw Tres Mccann DO Phone: tel: fax: [address] [phone] Referral ID Status Reason Start Date Expiration Date Visits Re quested Visits Authorized [id number] Closed 03/19/2021 04/18/2022 1 1 Reason for Visit * Diagnostic Imaging (Routine) - Closed Specialty Diagnoses / Procedures Referred By Charity parra Referred To Contact Diagnoses Acute pain of both knees Procedures XR Knee Left 3 Vw Tres Mccann DO Phone: tel: fax: [address] [phone] Referral ID Status Reason Start Date Expiration Date Visits Re quested Visits Authorized [id number] Closed 03/19/2021 04/18/2022 1 1 Encounter Details Date Type Department Care Team (Latest Contact Info) Description 03/23/2021 10:09 AM CDT - 03/23/2021 11:59 PM CDT Hospital Encounter [facility] Diagnostic Imaging [address] [place] [id number] Acute pain of both knees Discharge Disposition: Discharge to home or self [...] on file 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 Gender Identity Not on file Sexual Orientation Not on file documented as of this encounter Medications at Time of Discharge sildenafiL (VIAGRA) 100 mg tablet Take 1 tablet (100 mg total) by mouth daily as needed for erectile dysfunction 12 tablet 1 06/08/2020 1 meloxicam (MOBIC) 7.5 mg tablet Take 1 tablet (7.5 mg total) by mouth daily 90 tablet 1 03/19/2021 2 documented as of this encounter Discharge Disposition Disposition Code Departure Means Destination Discharge to home or self care documented in this encounter Plan of Treatment Not on file documented as of this encounter Procedures Procedure Name Priority Date/Time Associated Diagnosis Comments XR KNEE LEFT 3 VIEWS Schedule Routine, Read Routine (OP Routine) 03/23/2021 10:25 AM CDT Acute pain of both knees documented in this encounter Results * XR Knee Left 3 Vw (03/23/2021 10:25 AM CDT) Anatomical Region Laterality Modality Lower Extremities, Knee Left Computed Radiography 03/24/2021 8:49 AM CDT Narrative 03/24/2021 8:51 AM CDT EXAM DESCRIPTION: ?? XR KNEE LEFT 3 VIEWS REASON FOR STUDY: ?? Acute pain of both knees ??Arthritis of left knee x 2 years, has recently gotten worse in the last 3 months ?? TECHNIQUE: ?? Helms, lateral, sunrise views of the left knee were obtained COMPARISON: ?? 02/25/2019 FINDINGS: Enthesophyte formation at the insertion of the quadriceps and origin of the patellar tendons is noted. ??No significant fullness in the suprapatellar space is seen. ??Minimal spur formation articular surface of the patella. ??No radiopaque foreign bodies are identified. ??Helms view somewhat suboptimal. Difficult to assess the medial and lateral central weight-bearing compartments. ??No fracture is identified. IMPRESSION: ?? Minimal osteoarthritic changes of the left knee, not significantly changed. THIS IS AN ELECTRONICALLY VERIFIED FINAL REPORT 03/24/2021 8:51 AM - Electronically signed by González Hernandez M.D. AT D: ??03/24/2021 8:51 AM T: Report ID: [id number] Reading Location: ??[id number] Procedure Note González Hernandez MD - 03/24/2021 EXAM DESCRIPTION: XR KNEE LEFT 3 VIEWS REASON FOR STUDY: Acute pain of both knees Arthritis of left knee x 2 years, has recently gotten worse in the last 3 months TECHNIQUE: Helms, lateral, sunrise views of the left knee wereobtained COMPARISON: 02/25/2019 FINDINGS: Enthesophyte formation at the insertion of the quadriceps and origin ofthe patellar tendons is noted. No significant fullness in the suprapatellarspace is seen. Minimal spur formation articular surface of the patella. No radiopaque foreign bodies are identified. Helms view somewhatsuboptimal. Difficult to assess the medial and lateral central weight-bearing compartments. No fracture is identified. IMPRESSION: Minimal osteoarthritic changes of the left knee, not significantly changed. THIS IS AN ELECTRONICALLY VERIFIED FINAL REPORT 03/24/2021 8:51 AM - Electronically signed by González Hernandez M.D. AT T: Report ID: [id number] Reading Location: [id number] Tres Mccann DO IMG XR PROCEDURES Final Result documented in this encounter Visit Diagnoses Diagnosis Acute pain of both knees documented in this encounter Care Teams Assistant Professor Of Biology Relationship Specialty Start Date End Date Tres Mccann, PCP - General Family Medicine 02/24/19 documented as of this encounter
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
--- OUTSIDE RECORDS SUMMARY | 2024-07-23 13:12 | XMS_ITS | Encounter Summary ---
Author Organization [facility] Address [address] [place] [address] Care Team Providers Care Subcontracts Manager Name Role Phone Tres Mccann DO Primary Care Provider + Encounter Details Date Type Department Care Team (Late st Contact Info) Description 04/30/2020 Orders Only [facility] Information Management [address] [place] [address] Tres Mccann DO [address] [address] Social History Tobacco Use Types Packs/Day Years Used Date Smoking Tobacco: Former Smokeless Tobacco: Never Alcohol Use Standard Drinks/Week Comments Not Currently 0 (1 standard drink = 0.6 oz pur e alcohol) PHQ-2 Answer Date Recorded PHQ-2 Total Score 0 03/19/2021 Sex and Gender Information Value Date Recorded Sex Assigned at Not on file 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 Gender Identity Not on file Sexual Orientation Not on file documented as of this encounter Plan of Treatment Not on file documented as of this encounter Procedures Procedure Name Priority Date/Time Associated Diagnosis Comments SCAN - RADIOLOGY/IMAGING 04/30/2020 12:00 AM CDT documented in this encounter Results * SCAN - RADIOLOGY/IMAGING (04/30/2020 12:00 AM CDT) Anatomical Region Laterality Modality Other us Tres Monahan R esult - Final documented in this encounter Visit Diagnoses Not on filedocumented in this encounter Care Teams Subcontracts Manager Relationship Specialty Start Date End Date Tres Mccann DO PCP - General Family Medicine 02/24/19 documented as of this encounter
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
--- OUTSIDE RECORDS SUMMARY | 2024-07-23 13:12 | XMS_ITS | Encounter Summary ---
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
--- OUTSIDE RECORDS SUMMARY | 2024-07-23 13:12 | XMS_ITS | Encounter Summary ---
Author Organization [facility] Healthcare Address [address] [place] [address] Care Team Providers Care Fire Prevention Engineer Name Role Phone Tres Mccann DO Primary Care Provider + Encounter Details Date Type Department Care Team (Late st Contact Info) Description 03/23/2021 9:30 AM CDT Lab [facility] [address] [place] [id number] Screening PSA (prostate specific antigen); Annual physical exam; Screening, lipid; Need for hepatitis C screening test Social History Tobacco Use Types Packs/Day Years Used Date Smoking Tobacco: Former Smokeless Tobacco: Never Alcohol Use Standard Drinks/Week Comments Not Currently 0 (1 standard drink = 0.6 oz pur e alcohol) PHQ-2 Answer Date Recorded PHQ-2 Total Score 0 03/19/2021 Sex and Gender Information Value Date Recorded Sex Assigned at Not on file 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 Gender Identity Not on file Sexual Orientation Not on file documented as of this encounter Miscellaneous Notes * Result Encounter Note - Tres Mccann DO - 03/25/2021 5:05 PM CDT Looks ok documented in this encounter Plan of Treatment Not on file documented as of this encounter Procedures Procedure Name Priority Date/Time Associated Diagnosis Comments EGFR Routine 03/23/2021 10:04 AM CDT Annual physical exam DIFFERENTIAL AUTO Routine 03/23/2021 10: 04 AM CDT Annual physical exam PSA SCREEN Routine 03/23/2021 10:04 AM CDT Screening PSA (prostate specific antigen) CBC WITH AUTO DIFFERENTIAL Routine 03/23/2021 10:04 AM CDT Annual physical exam HEPATITIS C ANTIBODY Routine 03/23/2021 10:04 AM CDT Need for hepatitis C screening test HEPATIC FUNCTION PANEL Routine 03/23/2021 10:04 AM CDT Annual physical exam LIPID PANEL Routine 03/23/2021 10:04 AM CDT Annual physical exam Screening, lipid BASIC METABOLIC PANEL Routine 03/23/2021 10:04 AM CDT Annual physical exam documented in this encounter Results * eGFR (03/23/2021 10:04 AM CDT) [facility] eGFR 97 mL/min/1.7 3 m2 [facility] Comment: Interpretive [...] interpretive data was last reviewed 2020 Blood 03/23/2021 10:0 4 AM CDT 03/23/2021 11:41 AM CDT Tres Mccann DO LAB BLOOD ORDERABLES Fin al Result [facility] [address] [facility] Department [place] [address] * Differential, auto (03/23/2021 10:04 AM CDT) Pathologist [facility] Neutrophil abs 3.6 1.7 - 6.5 K/cumm [facility] Imm gran abs 0.0 0.0 - 0.1 K/cumm [facility] Lymphocyte abs 1.9 0.8 - 3.3 K/cumm [facility] Monocyte abs 0.6 0.2 - 0.8 K/cumm [facility] Eosinophil abs 0.2 0.0 - 0.5 K/cumm [facility] Basophil abs 0.0 0.0 - 0.1 K/cumm [facility] Neutrophil pct 57.1 % [facility] Comment: Interpretive Data Percent cell count reference ranges are not reported, since discordance with absolute values may lead to misinterpretation of CBC data. Current Interpretive Data was last revised on 2017. Imm gran pct 0.5 % [facility] Comment: Interpretive Data Percent cell count reference ranges are not reported, since discordance with absolute values may lead to misinterpretation of CBC data. Current Interpretive Data was last revised on 2017. Lymphocyte pct 29.9 % [facility] Comment: Interpretive Data Percent cell count reference ranges are not reported, since discordance with absolute values may lead to misinterpretation of CBC data. Current Interpretive Data was last revised on 2017. Monocyte pct 9.2 % [facility] Comment: Interpretive Data Percent cell count reference ranges are not reported, since discordance with absolute values may lead to misinterpretation of CBC data. Current Interpretive Data was last revised on 2017. Eosinophil pct 2.7 % [facility] Comment: Interpretive Data Percent cell count reference ranges are not reported, since discordance with absolute values may lead to misinterpretation of CBC data. Current Interpretive Data was last revised on 2017. Basophil pct 0.6 % [facility] Comment: Interpretive Data Percent cell count reference ranges are not reported, since discordance with absolute values may lead to misinterpretation of CBC data. Current Interpretive Data was last revised on 2017. Blood 03/23/2021 10:0 4 AM CDT 03/23/2021 11:41 AM CDT Tres Mccann DO LAB BLOOD ORDERABLES Fin al Result Performing Organization Address [facility] de Phone Number [address] [address] * Hepatitis C antibody (03/23/2021 10:04 AM CDT) Pathologist [facility] Hep C Ab Nonreactive Nonreactive [facility] Comment: Interpretive Data Nonreactive: Antibodies to HCV [...] GENER AL ORDERABLES Edited Result - Final Performing Organization Address [facility] de Phone Number [address] [address] * Hepatic function panel (03/23/2021 10:04 AM CDT) Pathologist [facility] Bilirubin, total 0.5 0.1 - 1.2 mg/dL [facility] Bilirubin, direct <0.2 0.1 - 0.3 mg/dL [facility] Comment:HEMOLYZED: Hemolysis interferes with the above test. Protein, pl 7.5 6.5 - 8.5 g/dL [facility] Albumin 4.1 3.5 - 5.0 g/dL [facility] Alk phos 71 40 - 130 Units/L [facility] ALT 40 7 - 55 Units/L [facility] AST 29 10 - 50 Units/L [facility] Comment:HEMOLYZED: Hemolysis interferes with the above test. Blood 03/23/2021 10:0 4 AM CDT 03/23/2021 11:41 AM CDT Tres Mccann DO LAB BLOOD ORDERABLES Fin al Result [facility] [address] [facility] Department [place] [address] * (ABNORMAL) Lipid panel (03/23/2021 10:04 AM CDT) Pathologist [facility] Cholesterol 185 30 - 199 mg/dL [facility] Comment: Interpretive Data Ages < or = [...] Data was last revised on 2018. Triglycerides 181(H) <=149 mg/dL [facility] Comment: Interpretive Data Ages < or = [...] was last revised on 2018. LDL, calculated 112 <=129 mg/dL [facility] Comment: Interpretive Data [...] was last revised on 2018. Non-HDL Cholesterol 148 mg/dL [facility] Comment: Interpretive Data Ages < or = [...] last revised on 2018. Chol/HDL ratio 5 [facility] Blood 03/23/2021 10:0 4 AM CDT 03/23/2021 11:41 AM CDT Tres Mccann DO LAB BLOOD ORDERABLES Fin al Result Performing Organization Address City/State/[facility] Co de Phone Number [facility] [address] [facility] Department [place] [address] * Basic metabolic panel (03/23/2021 10:04 AM CDT) Pathologist [facility] Sodium 138 135 - 145 mmol/L [facility] Potassium, pl 4.3 3.3 - 4.9 mmol/L [facility] Chloride 103 97 - 110 mmol/L [facility] CO2 23 22 - 32 mmol/L [facility] Anion gap 12 2 - 15 mmol/L [facility] BUN 20 8 - 25 mg/dL [facility] Creatinine 0.80 0.80 - 1.30 mg/dL [facility] Glucose 97 70 - 199 mg/dL [facility] Comment: Interpretive Data Fasting glucose [...] 2017. Calcium 9.4 8.5 - 10.3 mg/dL [facility] Blood 03/23/2021 10:0 4 AM CDT 03/23/2021 11:41 AM CDT Tres Mccann DO LAB BLOOD ORDERABLES Fin al Result [facility] [address] [facility] Department [place] [address] * CBC with auto differential (03/23/2021 10:04 AM CDT) WBC 6.3 3.8 - 9.9 K/cumm [facility] Hgb 15.3 13.0 - 17.5 g/dL [facility] Hct 44.6 38.9 - 50.3 % [facility] Plt 235 150 - 400 K/cumm [facility] MPV 10.7 9.1 - 12.3 fL [facility] RBC 5.20 4.30 - 5.80 M/cumm [facility] MCV 85.8 81.3 - 96.4 fL [facility] MCH 29.4 27.1 - 33.3 pg [facility] MCHC 34.3 32.3 - 35.7 g/dL [facility] RDW CV 12.7 11.1 - 14.9 % [facility] RDW SD 39.0 35.7 - 48.1 fL [facility] NRBC abs 0.00 0.00 - 0.01 K/cumm [facility] Blood 03/23/2021 10:0 4 AM CDT 03/23/2021 11:41 AM CDT us Tres Mccann DO LAB BLOOD ORDERABLES Fin al Result Performing Organization Address [facility] de Phone Number [facility] [address] [facility] [place] [address] * PSA screen (03/23/2021 10:04 AM CDT) PSA-Total 0.90 <=5.40 ng/mL [facility] Comment: Interpretive Data ?AGE ? SEX ?REFERENCE INTERVAL 0 minutes-150 years ?Female ?None 0 minutes-49 years ? Male ?None ? 50-59 years ? Male ?0-3.90 ? 60-69 years ? Male ?0-5.40 ? 70-79 years ? Male ?0-6.20 ? 80-150 years ?Male ?0-6.20 Current interpretive data last revised 2018. Blood 03/23/2021 10:0 4 AM CDT 03/23/2021 11:41 AM CDT us Tres Mccann DO LAB BLOOD ORDERABLES Fin al Result Performing Organization Address [facility] de Phone Number [facility] [address] [facility] [place] [address] documented in this encounter Visit Diagnoses Diagnosis Screening PSA (prostate specific antigen) Special screening for malignant neoplasm of prostate Annual physical exam Routine general medical examination at a health care facility Screening, lipid Need for hepatitis C screening test Special screening examination for other specified viral diseases documented in this encounter Care Teams Fire Prevention Engineer Relationship Specialty Start Date End Date Tres Mccann DO PCP - General Family Medicine 02/24/19 documented as of this encounter
--- OUTSIDE RECORDS SUMMARY | 2024-07-23 13:12 | XMS_ITS | Encounter Summary ---
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 Name Role Phone Tres Mccann DO Primary Care Provider + Reason for Visit * Reason Comments Annual Exam Encounter Details Date Type Department Care Team (Late st Contact Info) Description 02/29/2020 4:00 PM CDT Office Visit [facility] Family Medicine [address] [place] [id number] Tres Mccann DO [address] [facility] [address] [place] [address] Annual physical exam (Primary Dx); Screening for colon cancer Social History Tobacco Use Types Packs/Day Years Used Date Smoking Tobacco: Former Smokeless Tobacco: Never Alcohol Use Standard Drinks/Week Comments Not Currently 0 (1 standard drink = 0.6 oz pur e alcohol) Sex and Gender Information Value Date Recorded Sex Assigned at Not on file 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 Gender Identity Not on file Sexual Orientation Not on file documented as of this encounter Last Filed Vital Signs Vital Sign Reading Time Taken Comments Blood Pressure 120/76 02/29/2020 4:18 PM CDT Pulse 75 02/29/2020 4:18 PM CDT Temperature 36.4 ??C (97.5 ??F) 02/29/2020 4:18 PM CD T Respiratory Rate 16 02/29/2020 4:18 PM CDT Oxygen Saturation 96% 02/29/2020 4:18 PM CDT Inhaled Oxygen Concentration - - Weight 125.8 kg (277 lb 6.4 oz) 02/29/2020 4:18 PM CDT Height 172.7 cm (5' 8 ) 02/29/2020 4:18 PM CDT Body Mass Index 42.18 02/29/2020 4:18 PM CDT documented in this encounter Ordered Prescriptions Prescription Sig Dispense Quantity Refills Last Filled Start Date End Date meloxicam (MOBIC) 7.5 mg tablet Take 1 tablet (7.5 mg total) by mouth daily 90 tablet 3 02/29/2020 02/15/2021 documented in this encounter Progress Notes * Tres Mccann, DO - 02/29/2020 4:00 PM CDT Subjective/Objective Patient ID: Mir Maharaj is a 59 y.o. male. Chief Complaint Annual Exam HPI Annual exam Doing well History reviewed. No pertinent past medical history. History reviewed. No pertinent surgical history. Patient Active Problem List Diagnosis Date Noted ??? Knee pain 02/25/2019 ??? Annual physical exam 02/25/2019 Current Outpatient Medications Medication Sig Dispense Refill ??? meloxicam (MOBIC) 7.5 mg tablet Take 7.5 mg by mouth daily ??? sildenafil (VIAGRA) 100 mg tablet 100 mg daily No current facility-administered medications for this visit. Allergies as of 02/29/2020 - Reviewed 02/29/2020 Allergen Reaction Noted ??? Azithromycin Rash 02/25/2019 Social History Socioeconomic History ??? Marital status: Spouse name: None ??? Number of children: None ??? Years of education: None ??? Highest education level: None Occupational History ??? None Social Needs ??? Financial resource strain: None ??? Food insecurity Worry: None Inability: None ??? Transportation needs Medical: None Non-medical: None Tobacco Use ??? Smoking status: Former Smoker ??? Smokeless tobacco: Never Used Substance and Sexual Activity ??? Alcohol use: Not Currently ??? Drug use: None ??? Sexual activity: None Lifestyle ??? Physical activity Days per week: None Minutes per session: None ??? Stress: None Relationships ??? Social connections Talks on phone: None Gets together: None Attends mormonism service: None Active member of club or organization: None Attends meetings of clubs or organizations: None Relationship status: None ??? Intimate partner violence Fear of current or ex partner: None [...] Negative for confusion and sleep disturbance. BP 120/76 Pulse 75 Temp 36.4 ??C (97.5 ??F) (Temporal) Resp 16 Ht 172.7 cm (5' 8 ) Wt 125.8 kg (277 lb 6.4 oz) SpO2 96% BMI 42.18 kg/m?? Physical Exam Vitals signs and nursing note reviewed. Constitutional: Appearance: He is well-developed. HENT: Head: Normocephalic and atraumatic. Right Ear: External ear normal. Left Ear: External ear normal. Nose: Nose normal. Eyes: Conjunctiva/sclera: Conjunctivae normal. Neck: Musculoskeletal: Normal range of motion and neck supple. Thyroid: No thyromegaly. Cardiovascular: Rate and Rhythm: Normal rate and regular rhythm. Heart sounds: Normal heart sounds. Pulmonary: Effort: Pulmonary effort is normal. Breath sounds: Normal breath sounds. Abdominal: General: There is no distension. Palpations: Abdomen is soft. Tenderness: There is no abdominal tenderness. Musculoskeletal: Normal range of motion. General: No deformity. Lymphadenopathy: Cervical: No cervical adenopathy. Skin: General: Skin is warm and dry. Neurological: Mental Status: He is alert and oriented to person, place, and time. Coordination: Coordination normal. Psychiatric: Behavior: Behavior normal. Thought Content: Thought content normal. Judgment: Judgment normal. No visits with results within 2 Week(s) from this visit. Latest known visit with results is: Office Visit on 02/25/2019 Component Date Value ??? Sodium 03/05/2019 140 ??? Potassium 03/05/2019 4.3 ??? Chloride 03/05/2019 106 ??? Carbon Dioxide 03/05/2019 23 ??? Anion Gap 03/05/2019 11 ??? Glucose 03/05/2019 94 ??? BUN 03/05/2019 22 ??? Creatinine 03/05/2019 0.8 ? ? Kidney Disease Stage 03/05/2019 >90 ??? Calcium 03/05/2019 8.9 ??? Total Protein 03/05/2019 7.6 ??? Albumin 03/05/2019 4.3 ??? Globulin 03/05/2019 3.3 ??? Albumin/Globulin Ratio 03/05/2019 1.3 ??? Total Bilirubin 03/05/2019 0.8 ? ? Direct Bilirubin 03/05/2019 <0.20 ??? AST 03/05/2019 29 ??? ALT 03/05/2019 40 ??? Alkaline Phosphatase 03/05/2019 71 ??? Triglycerides 03/05/2019 224* ??? Cholesterol 03/05/2019 183 ??? HDL Cholesterol 03/05/2019 36 ??? LDL Cholesterol, Calc 03/05/2019 102 ??? Cholesterol/HDL Ratio 03/05/2019 5.1 ??? TSH 03/05/2019 1.69 ??? PSA Screen 03/05/2019 0.9 ??? WBC 03/05/2019 7.2 ??? RBC 03/05/2019 5.00 ??? Hemoglobin 03/05/2019 15.2 ??? Hct 03/05/2019 43.5 ??? MCV 03/05/2019 87.0 ??? MCH 03/05/2019 30.4 ??? MCHC 03/05/2019 34.9 ??? RDW 03/05/2019 12.6 ??? Plt Count 03/05/2019 249 ??? MPV 03/05/2019 10.3 ??? Neut % 03/05/2019 53.7 ??? Immature Gran % 03/05/2019 0.6 ??? Lymph % 03/05/2019 31.3 ??? Merrick % 03/05/2019 10.1 ??? Eos % 03/05/2019 3.5 ??? AUTO BASO % 03/05/2019 0.8 ??? NEUTROPHIL ABS # 03/05/2019 3.9 ??? Immature Gran # 03/05/2019 0.0 ??? Absolute Lymphs (auto) 03/05/2019 2.2 ??? Absolute Monos (auto) 03/05/2019 0.7 ??? Absolute Eos (auto) 03/05/2019 0.3 ??? BASOPHIL ABS # 03/05/2019 0.1 ??? Nucleat RBC Rel Count 03/05/2019 0.0 ??? NRBC abs 03/05/2019 0.00 ??? Absolute Neutrophils 03/05/2019 3,900 ??? Uric Acid 03/05/2019 8.9* Assessment/Plan Diagnoses and all orders for this visit: Annual physical exam (Z00.00) (Primary) Assessment & Plan: Lab documented in this encounter Miscellaneous Notes * Assessment & Plan Note - Tres Mccann DO - 02/29/2020 4:37 PM CDT Associated Problem(s): Annual physical exam Lab * Addendum Note - Magy Palm MA - 02/29/2020 4:00 PM CDTAddended by: MAGY PALM on: 02/29/2020 04:51 PM Modules accepted: Orders documented in this encounter Plan of Treatment Not on file documented as of this encounter Procedures Procedure Name Priority Date/Time Associated Diagnosis Comments THYROID FUNCTION CASCADE Routine 03/10/2020 7:29 AM CDT Annual physical exam PSA SCREEN Routine 03/10/2020 7:29 AM CDT Annual physical exam CBC WITH AUTO DIFFERENTIAL Routine 03/10/2020 7:29 AM CDT Annual physical exam HEPATIC FUNCTION PANEL Routine 03/10/2020 7:29 AM CDT Annual physical exam LIPID PANEL Routine 03/10/2020 7:29 AM CDT Annual physical exam BASIC METABOLIC PANEL Routine 03/10/2020 7:29 AM CDT Annual physical exam URINALYSIS AND REFLEX TO MICROSCOPIC AND CULTURE Routine 03/10/2020 7:26 AM CDT Annual physical exam documented in this encounter Results * PSA screen (03/10/2020 7:29 AM CDT) PSA Screen 0.9 0.0 - 3.9 ng/mL [facility] Comment: The Fernanda PSA electrochemiluminescent immunoassay is used. Results obtained with different test methods or kits cannot be used interchangeably. The Fernanda PSA method is approved for use as an aid in the detection of prostate cancer when used in conjunction with a digital rectal exam in men age 50 and older. The Fernanda PSA is also indicated for the serial measurement of PSA to aid in the prognosis and management of prostate cancer patients. Elevated PSA concentrations can only suggest the presence of prostate cancer until biopsy is performed. Blood specimen (specimen) 03/10/2020 7:29 AM CDT 03/10/2020 7:56 AM CDT Narrative Resulting Agency Comment CLI us Tres Mccann DO LAB BLOOD ORDERABLES Fin al Result [facility] [address] [place] [address], [facility] [phone] * (ABNORMAL) Hepatic function panel (03/10/2020 7:29 AM CDT) Pathologist [facility] Total Protein 7.3 6.4 - 8.3 g/dL [facility] Albumin 4.5 3.5 - 5.0 g/dL [facility] Globulin 2.8 2.3 - 3.5 gm/dL [facility] Albumin/Globulin Ratio 1.6 1.1 - 1.8 [facility] Total Bilirubin 0.7 0.0 - 1.2 mg/dL [facility] Direct Bilirubin <0.20 0.00 - 0.25 mg/dL [facility] AST 30 0 - 40 U/L [facility] ALT 42(H) 0 - 41 U/L [facility] Alkaline Phosphatase 64 40 - 129 U/L [facility] Blood specimen (specimen) 03/10/2020 7:29 AM CDT 03/10/2020 7:56 AM CDT Narrative Resulting Agency Comment CLI Tres Mccann DO LAB BLOOD ORDERABLES Fin al Result [address] [phone] * TSH reflex to free T4 (03/10/2020 7:29 AM CDT) [facility] TSH W REFLEX TO FT4 2.100 0.27 - 4.20 uIU/mL [facility] Blood specimen (specimen) 03/10/2020 7:29 AM CDT 03/10/2020 7:56 AM CDT Narrative Resulting Agency Comment CLI Tres Mccann DO LAB BLOOD ORDERABLES Fin al Result [address] [phone] * (ABNORMAL) Lipid panel (03/10/2020 7:29 AM CDT) [facility] Triglycerides 176(H) 0 - 149 mg/dL [facility] Comment: National Lipid Association/NCEP Guidelines: ?? Normal ?< 150 mg/dL ?? Borderline high ?? 150-199 mg/dL ?? High ?200-499 mg/dL ?? Very High ? >=500 mg/dL Cholesterol 205(H) 0 - 199 mg/dL [facility] Comment: National Lipid Association/NCEP Guidelines: Desirable ? < 200 mg/dL Borderline high: ??200-239 mg/dL High Risk: ?>=240 mg/dL HDL Cholesterol 36 mg/dL [facility] Comment: Reference Ranges: ? Males: >=40 mg/dL ? Females: >=50 mg/dL LDL Cholesterol, Calc 134(H) 0 - 129 mg/dL [facility] Comment: National Lipid Association/NCEP Guidelines: ??Optimal ? < 100 mg/dL ??Near Optimal ?100-129 mg/dL ??Borderline high 130-159 mg/dL ??High ?>=160 mg/dL Cholesterol/HDL Ratio 5.7 [facility] Comment: Optimal ??< 3.5:1 High ? > 5:1 Blood specimen (specimen) 03/10/2020 7:29 AM CDT 03/10/2020 7:56 AM CDT Narrative Resulting Agency Comment CLI us Tres Mccann DO LAB BLOOD ORDERABLES Fin al Result [facility] [address] [place] [address], [facility] [phone] * (ABNORMAL) Basic metabolic panel (03/10/2020 7:29 AM CDT) Pathologist [facility] Sodium 138 135 - 145 mmol/L [facility] Potassium 4.9 3.3 - 5.1 mmol/L [facility] Chloride 102 96 - 108 mmol/L [facility] Carbon Dioxide 27 22 - 32 mmol/L [facility] Anion Gap 9 7 - 16 [facility] Glucose 116(H) 70 - 100 mg/dL [facility] BUN 26(H) 8 - 25 mg/dL [facility] Creatinine 0.8 0.5 - 1.3 mg/dL [facility] Comment: NOTE: Estimated GFR (Cockroft-Gault) will NOT be calculated unless patient Height and Weight were entered. Also, Kidney Disease Stage (GFR) and Estimated GFR (Cockroft-Gault) will NOT be calculated if Creatinine result is <0.2. Kidney Disease Stage >90 mL/MIN [facility] Comment: NOTE; ??The GFR is an estimated [...] ? Kidney failure or on dialysis Calcium 9.6 8.6 - 10.3 mg/dL [facility] Blood specimen (specimen) 03/10/2020 7:29 AM CDT 03/10/2020 7:56 AM CDT Narrative Resulting Agency Comment CLI us Tres Mccann DO LAB BLOOD ORDERABLES Arthur lackey Result [facility] [address] [place] [address], [facility] [phone] * CBC with auto differential (03/10/2020 7:29 AM CDT) WBC 6.4 3.8 - 9.9 X10 3/ul [facility] RBC 4.91 4.30 - 5.80 x10 6/ul [facility] Hemoglobin 14.7 13.0 - 17.5 g/dL [facility] Hct 43.2 38.9 - 50.3 % [facility] MCV 88.0 81.3 - 96.4 fl [facility] MCH 29.9 27.1 - 33.3 pg [facility] MCHC 34.0 32.3 - 35.7 g/dl [facility] RDW 13.0 11.1 - 14.9 % [facility] Plt Count 225 150 - 400 x10 3/ul [facility] MPV 10.4 9.1 - 12.3 fl [facility] Neut % 54.2 % [facility] Immature Gran % 0.5 % [facility] Lymph % 30.8 % [facility] Merrick % 10.5 % [facility] Eos % 3.1 % [facility] AUTO BASO % 0.9 % [facility] NEUTROPHIL ABS # 3.5 1.7 - 6.5 x10 3/ul [facility] Immature Gran # 0.0 0.0 - 0.1 x10 3/ul [facility] Absolute Lymphs (auto) 2.0 0.8 - 3.3 x10 3/ul [facility] Absolute Monos (auto) 0.7 0.2 - 0.8 x10 3/ul [facility] Absolute Eos (auto) 0.2 0.0 - 0.5 x10 3/ul [facility] BASOPHIL ABS # 0.1 0.0 - 0.1 x10 3/ul [facility] Nucleat RBC Rel Count 0.0 #/100WBC [facility] NRBC abs 0.00 0.00 - 0.01 x10 3/ul [facility] Absolute Neutrophils 3,500 200 - 8,000 /ul [facility] Blood specimen (specimen) 03/10/2020 7:29 AM CDT 03/10/2020 7:56 AM CDT Narrative Resulting Agency Comment CLI us Tres Mccann DO LAB BLOOD ORDERABLES Fin al Result [facility] [address] [place] [address], [facility] [phone] * Urinalysis reflex to microscopic and culture Urine (03/10/2020 7:26 AM CDT) Ur Collection Type CLEAN CATCH [facility] Ur Culture Indicated? C S NOT INDICATED [facility] Urine Color YELLOW YELLOW [facility] Urine Clarity [facility] Urine Glucose (UA) NORMAL NORMAL mg/dL [facility] Urine Bilirubin NEGATIVE NEGATIVE mg/dl [facility] Urine Ketones NEGATIVE NEGATIVE mg/dL [facility] Ur Specific Tiona 1.009 1.005 - 1.025 [facility] Urine Blood NEGATIVE NEGATIVE mg/dl [facility] Urine pH 6.0 5.0 - 8.0 [facility] Urine Protein NEGATIVE NEGATIVE mg/dL [facility] Urine Urobilinogen NORMAL NORMAL mg/dL [facility] Urine Nitrite NEGATIVE NEGATIVE [facility] Ur Leukocyte Esterase NEGATIVE NEGATIVE Shawna/ul [facility] Ur Microscopic Review Not Indicated [facility] Urine 03/10/2020 7:26 AM CDT 03/10/2020 7:40 AM CDT Narrative [facility] - 03/10/2020 7:51 AM CDT Clean catch Resulting Agency Comment CLI Tres Mccann DO LAB MICROBIOLOGY - GENER AL ORDERABLES Final Result [facility] [address] [place] [address], [facility] [phone] documented in this encounter Visit Diagnoses Diagnosis Annual physical exam- Primary Routine general medical examination at a health care facility Screening for colon cancer Special screening for malignant neoplasms, colon documented in this encounter Discontinued Medications Medication Sig Discontinue Reason Start Date End Da te meloxicam (MOBIC) 7.5 mg tablet Take 7.5 mg by mouth daily Reorder 02/29/2020 documented as of this encounter Historical Medications * This list may reflect changes made after this encounter. 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
--- OUTSIDE RECORDS SUMMARY | 2024-07-23 13:12 | XMS_ITS | Encounter Summary ---
Author Organization [facility] Medical Group Address [address] [facility] [address] [place] [address] Care Team Providers Care Tumbler Operator Name Role Phone John Kinney DO Primary Care Provider + Reason for Referral * Diagnostic Imaging (Routine) - Closed Specialty Diagnoses / Procedures Referred By Charity parra Referred To Contact Diagnoses Acute pain of both knees Procedures XR Knee Left 3 Vw John Kinney DO Phone: tel: fax: [facility] [address] [place] [phone] Referral ID Status Reason Start Date Expiration Date Visits Re quested Visits Authorized [id number] Closed 03/19/2021 04/18/2022 1 1 Reason for Visit * Reason Comments Annual Exam Encounter Details Date Type Department Care Team (Late st Contact Info) Description 03/19/2021 4:45 PM CDT Office Visit [facility] Medical [facility] Family Medicine [address] [place] [address] John Kinney DO [address] [facility] [address] [place] [address] Annual physical exam (Primary Dx); Acute pain of both knees; Achilles tendon pain; Need for hepatitis C screening test; Screening PSA (prostate specific antigen); Screening, lipid Social History Tobacco Use Types Packs/Day Years Used Date Smoking Tobacco: Former Smokeless Tobacco: Never Alcohol Use Standard Drinks/Week Comments Not Currently 0 (1 standard drink = 0.6 oz pur e alcohol) PHQ-2 Answer Date Recorded PHQ-2 Total Score 0 03/19/2021 Sex and Gender Information Value Date Recorded Sex Assigned at Not on file 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 Gender Identity Not on file Sexual Orientation Not on file documented as of this encounter Last Filed Vital Signs Vital Sign Reading Time Taken Comments Blood Pressure 128/78 03/19/2021 4:32 PM CDT Pulse 80 03/19/2021 4:32 PM CDT Temperature 36.3 ??C (97.4 ??F) 03/19/2021 4:32 PM CD T Respiratory Rate 16 03/19/2021 4:32 PM CDT Oxygen Saturation 97% 03/19/2021 4:32 PM CDT Inhaled Oxygen Concentration - - Weight 127.7 kg (281 lb 9.6 oz) 03/19/2021 4:32 PM CDT Height 170.2 cm (5' 7 ) 03/19/2021 4:32 PM CDT Body Mass Index 44.1 03/19/2021 4:32 PM CDT documented in this encounter Ordered Prescriptions Prescription Sig Dispense Quantity Refills Last Filled Start Date End Date meloxicam (MOBIC) 7.5 mg tablet Take 1 tablet (7.5 mg total) by mouth daily 90 tablet 1 03/19/2021 10/14/2021 documented in this encounter Progress Notes * John Kinney, DO - 03/19/2021 4:45 PM CDT Subjective/Objective Patient ID: Mir Maharaj is a 60 y.o. male. Chief Complaint Annual Exam HPI Annual physical Doing well History reviewed. No pertinent past medical history. History reviewed. No pertinent surgical history. Patient Active Problem List Diagnosis Date Noted ??? Achilles tendon pain 03/19/2021 ??? Morbid obesity with BMI of 40.0-44.9, adult (CMS/HCC) (HCC) 05/08/2020 ??? Elevated blood pressure reading 04/22/2020 ??? Knee pain 02/25/2019 ??? Annual physical exam 02/25/2019 Current Outpatient Medications Medication Sig Dispense Refill ??? meloxicam (MOBIC) 7.5 mg tablet TAKE 1 TABLET BY MOUTH EVERY DAY 90 tablet 0 ??? sildenafiL (VIAGRA) 100 mg tablet Take 1 tablet (100 mg total) by mouth daily as needed for erectile dysfunction 12 tablet 1 No current facility-administered medications for this visit. Allergies as of 03/19/2021 - Reviewed 03/19/2021 Allergen Reaction Noted ??? Azithromycin Rash 02/25/2019 [...] ??? Drug use: Never ??? Sexual activity: None Other Topics Concern [...] and Family: Not on file ??? Attends Congregational Services: Not on file ??? Active Member of Clubs or Organizations: Not on file ??? Attends Club or Organization Meetings: Not on file ??? Marital Status: Not on file Intimate Partner Violence: ??? Fear of Current or Ex-Partner: Not on file ??? Emotionally Abused: Not on file ??? Physically Abused: Not on file ??? Sexually Abused: Not on file Family History Problem Relation [...] points, staff should administer the PHQ-9): 0 Trouble Falling or Staying Asleep, or Sleeping too Much: Not at all Feeling Tired or Having Little Energy: Not at all Poor Appetite or Overeating: Not at all Feeling Bad About Yourself - or That You are a Failure or Have Let Yourself or Your Family Down: Not at all Trouble Concentrating on Things, Such as Reading the Newspaper or Watching Television: Not at all Moving or Speaking so Slowly That Other People Could Have Noticed, or the Opposite - Being so Fidgety or Restless That You Have Been Moving Around a lot More Than Usual: Not at all Thoughts That You Would be Better off , or of Hurting Yourself in Some Way: Not at all PHQ-9 Total Score: 0 If you checked off any problems, how difficult have these problems made it for you to do your work,take care of things at home, or get along with other people?: Not difficult at all Review of Systems Constitutional: Negative for activity [...] Negative for confusion and sleep disturbance. BP 128/78 Pulse 80 Temp 36.3 ??C (97.4 ??F) Resp 16 Ht 170.2 cm (5' 7 ) Wt 127.7 kg (281 lb 9.6 oz) SpO2 97% BMI 44.10 kg/m?? Physical Exam Vitals and nursing note [...] visit with results is: Office Visit on 02/29/2020 Component Date Value ??? WBC 03/10/2020 6.4 ??? RBC 03/10/2020 4.91 ??? Hemoglobin 03/10/2020 14.7 ??? Hct 03/10/2020 43.2 ??? MCV 03/10/2020 88.0 ??? MCH 03/10/2020 29.9 ??? MCHC 03/10/2020 34.0 ??? RDW 03/10/2020 13.0 ??? Plt Count 03/10/2020 225 ??? MPV 03/10/2020 10.4 ??? Neut % 03/10/2020 54.2 ??? Immature Gran % 03/10/2020 0.5 ??? Lymph % 03/10/2020 30.8 ??? [place] % 03/10/2020 10.5 ??? Eos % 03/10/2020 3.1 ??? AUTO BASO % 03/10/2020 0.9 ??? NEUTROPHIL ABS # 03/10/2020 3.5 ??? Immature Gran # 03/10/2020 0.0 ??? Absolute Lymphs (auto) 03/10/2020 2.0 ??? Absolute Monos (auto) 03/10/2020 0.7 ??? Absolute Eos (auto) 03/10/2020 0.2 ??? BASOPHIL ABS # 03/10/2020 0.1 ??? Nucleat RBC Rel Count 03/10/2020 0.0 ??? NRBC abs 03/10/2020 0.00 ??? Absolute Neutrophils 03/10/2020 3,500 ??? Sodium 03/10/2020 138 ??? Potassium 03/10/2020 4.9 ??? Chloride 03/10/2020 102 ??? Carbon Dioxide 03/10/2020 27 ??? Anion Gap 03/10/2020 9 ??? Glucose 03/10/2020 116* ??? BUN 03/10/2020 26* ??? Creatinine 03/10/2020 0.8 ? ? Kidney Disease Stage 03/10/2020 >90 ??? Calcium 03/10/2020 9.6 ??? Triglycerides 03/10/2020 176* ??? Cholesterol 03/10/2020 205* ??? HDL Cholesterol 03/10/2020 36 ??? LDL Cholesterol, Calc 03/10/2020 134* ??? Cholesterol/HDL Ratio 03/10/2020 5.7 ??? TSH W REFLEX TO FT4 03/10/2020 2.100 ??? Total Protein 03/10/2020 7.3 ??? Albumin 03/10/2020 4.5 ??? Globulin 03/10/2020 2.8 ??? Albumin/Globulin Ratio 03/10/2020 1.6 ??? Total Bilirubin 03/10/2020 0.7 ? ? Direct Bilirubin 03/10/2020 <0.20 ??? AST 03/10/2020 30 ??? ALT 03/10/2020 42* ??? Alkaline Phosphatase 03/10/2020 64 ??? Ur Collection Type 03/10/2020 CLEAN CATCH ??? Ur Culture Indicated? 03/10/2020 C S NOT INDICATED ??? Urine Color 03/10/2020 YELLOW ??? Urine Clarity 03/10/2020 CLEAR ??? Urine Glucose (UA) 03/10/2020 NORMAL ??? Urine Bilirubin 03/10/2020 NEGATIVE ??? Urine Ketones 03/10/2020 NEGATIVE ??? Ur Specific [place] 03/10/2020 1.009 ??? Urine Blood 03/10/2020 NEGATIVE ??? Urine pH 03/10/2020 6.0 ??? Urine Protein 03/10/2020 NEGATIVE ??? Urine Urobilinogen 03/10/2020 NORMAL ??? Urine Nitrite 03/10/2020 NEGATIVE ??? Ur Leukocyte Esterase 03/10/2020 NEGATIVE ??? Ur Microscopic Review 03/10/2020 Not Indicated ??? PSA Screen 03/10/2020 0.9 Assessment/Plan Diagnoses and all orders for this visit: Annual physical exam (Z00.00) (Primary) Assessment & Plan: Routine lab Acute pain of both knees (M25.561, M25.562) Assessment & Plan: X ray left knee Achilles tendon pain (M76.60) Assessment & Plan: See electrical and instrument mechanic documented in this encounter Miscellaneous Notes * Assessment & Plan Note - John Kinney DO - 03/19/2021 5:32 PM CDT Associated Problem(s): Achilles tendon pain See electrical and instrument mechanic * Assessment & Plan Note - John Kinney DO - 03/19/2021 5:31 PM CDT Associated Problem(s): Knee pain X ray left knee * Assessment & Plan Note - John Kinney DO - 03/19/2021 5:22 PM CDT Associated Problem(s): Annual physical exam Routine lab * Addendum Note - Tera Keller MA - 03/19/2021 4:45 PM CDTAddended by: TEAR KELLER on: 03/19/2021 05:43 PM Modules accepted: Orders * Addendum Note - John Kinney DO - 03/19/2021 4:45 PM CDTAddended by: JOHN KINNEY on: 03/19/2021 06:00 PM Modules accepted: Orders documented in this encounter Plan of Treatment Not on file documented as of this encounter Results * XR Knee Left [...] D: ??03/24/2021 8:51 AM T: Report ID: [id number] Reading Location: ??[id number] Procedure Note González Hernandez MD - 03/24/2021 [...] González Hernandez M.D. AT T: Report ID: [id number] Reading Location: [id number] John Kinney DO IMG XR PROCEDURES Final Result * PSA screen (03/23/2021 10:04 AM CDT) PSA-Total 0.90 <=5.40 ng/mL [facility] Comment: Interpretive Data ?AGE ? SEX ?REFERENCE INTERVAL 0 minutes-150 years ?Female ?None 0 minutes-49 years ? Male ?None ? 50-59 years ? Male ?0-3.90 ? 60-69 years ? Male ?0-5.40 ? 70-79 years ? Male ?0-6.20 ? 80-150 years ?Male ?0-6.20 Current interpretive data last revised 2018. Blood 03/23/2021 10:0 4 AM CDT 03/23/2021 11:41 AM CDT John Kinney DO LAB BLOOD ORDERABLES Fin al Result Performing Organization Address [facility] de Phone Number [place] [phone] [facility] [place] [address] * Hepatitis C antibody (03/23/2021 10:04 AM CDT) Pathologist [facility] Hep C Ab Nonreactive Nonreactive [facility] Comment: Interpretive Data Nonreactive: Antibodies to [...] 4 AM CDT 03/23/2021 11:41 AM CDT John Kinney DO LAB MICROBIOLOGY - GENER AL ORDERABLES Edited Result - Final Performing Organization Address [facility] de Phone Number [place] [phone] [facility] [place] [address] * Hepatic function panel (03/23/2021 10:04 AM CDT) Pathologist [facility] Bilirubin, total 0.5 0.1 - 1.2 mg/dL [facility] Bilirubin, direct <0.2 0.1 - 0.3 mg/dL [facility] Comment:HEMOLYZED: Hemolysis interferes with the above test. Protein, pl 7.5 6.5 - 8.5 g/dL [facility] Albumin 4.1 3.5 - 5.0 g/dL [facility] Alk phos 71 40 - 130 Units/L [facility] ALT 40 7 - 55 Units/L [facility] AST 29 10 - 50 Units/L [facility] Comment:HEMOLYZED: Hemolysis interferes with the above test. Blood 03/23/2021 10:0 4 AM CDT 03/23/2021 11:41 AM CDT John Kinney DO LAB BLOOD ORDERABLES Fin al Result [facility] [address] [place] [address] * (ABNORMAL) Lipid panel (03/23/2021 10:04 AM CDT) Cholesterol 185 30 - 199 mg/dL [facility] Comment: Interpretive Data Ages < or = [...] revised on 2018. Triglycerides 181(H) <=149 mg/dL [facility] Comment: Interpretive Data Ages [...] 2018. LDL, calculated 112 <=129 mg/dL [facility] Comment: Interpretive Data Ages [...] revised on 2018. Non-HDL Cholesterol 148 mg/dL [facility] Comment: Interpretive Data Ages < or [...] last revised on 2018. Chol/HDL ratio 5 [facility] Blood 03/23/2021 10:0 4 AM CDT 03/23/2021 11:41 AM CDT John Kinney DO LAB BLOOD ORDERABLES Fin al Result [facility] [address] [place] [address] * Basic metabolic panel (03/23/2021 10:04 AM CDT) Sodium 138 135 - 145 mmol/L [facility] Potassium, pl 4.3 3.3 - 4.9 mmol/L [facility] Chloride 103 97 - 110 mmol/L [facility] CO2 23 22 - 32 mmol/L [facility] Anion gap 12 2 - 15 mmol/L [facility] BUN 20 8 - 25 mg/dL [facility] Creatinine 0.80 0.80 - 1.30 mg/dL [facility] Glucose 97 70 - 199 mg/dL [facility] Comment: Interpretive Data Fasting glucose >/= [...] 2017. Calcium 9.4 8.5 - 10.3 mg/dL [facility] Blood 03/23/2021 10:0 4 AM CDT 03/23/2021 11:41 AM CDT Jhon Kinney DO LAB BLOOD ORDERABLES Fin al Result Performing Organization Address [facility] Co de Phone Number SAM [facility] [address] [place] [employer] [place] [address] * CBC with auto differential (03/23/2021 10:04 AM CDT) WBC 6.3 3.8 - 9.9 K/cumm [facility] Hgb 15.3 13.0 - 17.5 g/dL [facility] Hct 44.6 38.9 - 50.3 % [facility] Plt 235 150 - 400 K/cumm [facility] MPV 10.7 9.1 - 12.3 fL [facility] RBC 5.20 4.30 - 5.80 M/cumm [facility] MCV 85.8 81.3 - 96.4 fL [facility] MCH 29.4 27.1 - 33.3 pg [facility] MCHC 34.3 32.3 - 35.7 g/dL [facility] RDW CV 12.7 11.1 - 14.9 % [facility] RDW SD 39.0 35.7 - 48.1 fL [facility] NRBC abs 0.00 0.00 - 0.01 K/cumm [facility] Blood 03/23/2021 10:0 4 AM CDT 03/23/2021 11:41 AM CDT John Kinney DO LAB BLOOD ORDERABLES Fin al Result Performing Organization Address City/[facility] Co de Phone Number SAM [facility] [place] [address] documented in this encounter Visit Diagnoses Diagnosis Annual physical exam- Primary Routine general medical examination at a health care facility Acute pain of both knees Achilles tendon pain Need for hepatitis C screening test Special screening examination for other specified viral diseases Screening PSA (prostate specific antigen) Special screening for malignant neoplasm of prostate Screening, lipid Acute pain of both knees documented in this encounter Discontinued Medications Medication Sig Discontinue Reason Start Date End Da te meloxicam (MOBIC) 7.5 mg tablet TAKE 1 TABLET BY MOUTH EVERY DAY Reorder 02/15/2021 03/19/2021 documented as of this encounter Care Teams Tumbler Operator Relationship Specialty Start Date End Date John Kinney DO PCP - General Family Medicine 02/24/19 documented as of this encounter
--- OUTSIDE RECORDS SUMMARY | 2024-07-23 13:12 | XMS_ITS | Encounter Summary ---
Author Organization [facility] Healthcare Address [address] [place] [address] Care Team Providers Care Hand Coremaker Name Role Phone Tres Mccann DO Primary Care Provider + Encounter Details Date Type Department Care Team (Late st Contact Info) Description 03/07/2019 6:05 AM CDT - 03/26/2019 11:59 PM CDT Hospital Encounter [facility] Tres Mccann DO [address] [id number] Social History Tobacco Use Types Packs/Day Years Used Date Smoking Tobacco: Former Smokeless Tobacco: Never Alcohol Use Standard Drinks/Week Comments Not Currently 0 (1 standard drink = 0.6 oz pur e alcohol) Sex and Gender Information Value Date Recorded Sex Assigned at Not on file 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 C S NOT INDICATED [facility] Urine Color YELLOW YELLOW [facility] Urine Clarity [facility] Urine Glucose (UA) NORMAL NORMAL mg/dL [facility] Urine Bilirubin NEGATIVE NEGATIVE mg/dl [facility] Urine Ketones NEGATIVE NEGATIVE mg/dL [facility] Ur Specific [place] 1.018 1.005 - 1.025 [facility] Urine Blood NEGATIVE NEGATIVE mg/dl [facility] Urine pH 5.0 5.0 - 8.0 [facility] Urine Protein NEGATIVE NEGATIVE mg/dL [facility] Urine Urobilinogen NORMAL NORMAL mg/dL [facility] Urine Nitrite NEGATIVE NEGATIVE [facility] Ur Leukocyte Esterase NEGATIVE NEGATIVE Shawna/ul [facility] Ur Microscopic Review Not Indicated [facility] 03/07/2019 5:30 AM CDT 03/07/2019 7:07 AM CDT Narrative [facility] - 03/07/2019 7:22 AM CDT PT Clean catch Resulting Agency Comment RCR us Tres Mccann DO LAB MICROBIOLOGY - GENER AL ORDERABLES Final Result [facility] [address] [place] [address], [facility] [phone] documented in this encounter Visit Diagnoses Not on filedocumented in this encounter Care Teams Hand Coremaker Relationship Specialty Start Date End Date Tres Mccann DO PCP - General Family Medicine 02/24/19 documented as of this encounter
--- OUTSIDE RECORDS SUMMARY | 2024-07-23 13:12 | XMS_ITS | Encounter Summary ---
Author Organization [facility] Address [address] [place] [address] Care Team Providers Care Plumbing Service Technician Name Role Phone Tres Mccann DO Primary Care Provider + Reason for Visit * Reason Comments Hypertension Encounter Details Date Type Department Care Team (Late st Contact Info) Description 05/08/2020 5:00 PM CDT Office Visit [facility] Family Medicine [address] 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 Gender Identity Not on file Sexual Orientation Not on file documented as of this encounter Last Filed Vital Signs Vital Sign Reading Time Taken Comments Blood Pressure 120/82 05/08/2020 4:44 PM CDT Pulse 73 05/08/2020 4:44 PM CDT Temperature 37.1 ??C (98.7 ??F) 05/08/2020 4:44 PM CD T Respiratory Rate 18 05/08/2020 4:44 PM CDT Oxygen Saturation 96% 05/08/2020 4:44 PM CDT Inhaled Oxygen Concentration - - Weight 130.2 kg (287 lb) 05/08/2020 4:44 PM CDT Height 170.2 cm (5' 7 ) 05/08/2020 4:44 PM CDT Body Mass Index 44.95 05/08/2020 4:44 PM CDT documented in this encounter Progress Notes * Tres Mccann, DO - 05/08/2020 5:00 PM CDT Subjective/Objective Patient ID: Mir Maharaj is a 60 y.o. male. Chief Complaint Hypertension HPI Routine check up htn Doing well History reviewed. No pertinent past medical history. History reviewed. No pertinent surgical history. Patient Active Problem List Diagnosis Date Noted ??? Morbid obesity with BMI of 40.0-44.9, adult ([facility]) 05/08/2020 ??? Elevated blood pressure reading 04/22/2020 ??? Knee pain 02/25/2019 ??? Annual physical exam 02/25/2019 Current Outpatient Medications Medication Sig Dispense Refill ??? meloxicam (MOBIC) 7.5 mg tablet Take 1 tablet (7.5 mg total) by mouth daily 90 tablet 3 No current facility-administered medications for this visit. Allergies as of 05/08/2020 - Reviewed 05/08/2020 Allergen Reaction Noted ??? Azithromycin Rash 02/25/2019 [...] Drug use: Never ??? Sexual activity: None Lifestyle ??? Physical activity Days per week: None Minutes per session: None ??? Stress: None Relationships ??? Social connections Talks on phone: None Gets together: None Attends mandaen service: None Active member of club or [...] Negative for confusion and sleep disturbance. BP 120/82 (BP Location: Left arm, Patient Position: Sitting) Pulse 73 Temp 37.1 ??C (98.7 ??F) Resp 18 Ht 170.2 cm (5' 7 ) Wt 130.2 kg (287 lb) SpO2 96% BMI 44.95 kg/m?? Physical Exam Vitals signs and nursing [...] 0.5 ??? Lymph % 03/10/2020 30.8 ??? [place] % 03/10/2020 10.5 ??? Eos % 03/10/2020 [...] Urine Ketones 03/10/2020 NEGATIVE ??? Ur Specific [place] 03/10/2020 1.009 ??? Urine Blood 03/10/2020 NEGATIVE ??? Urine pH 03/10/2020 6.0 ??? Urine Protein 03/10/2020 NEGATIVE ??? Urine Urobilinogen 03/10/2020 NORMAL ??? Urine Nitrite 03/10/2020 NEGATIVE ??? Ur Leukocyte Esterase 03/10/2020 NEGATIVE ??? Ur Microscopic Review 03/10/2020 Not Indicated ??? PSA Screen 03/10/2020 0.9 Assessment/Plan Diagnoses and all orders for this visit: Elevated blood pressure reading (R03.0) (Primary) Assessment & Plan: No new orders Doing well Morbid obesity with BMI of 40.0-44.9, adult ([facility]) (E66.01, Z68.41) Assessment & Plan: Reduce weight documented in this encounter Miscellaneous Notes * Assessment & Plan Note - Tres Mccann DO - 05/08/2020 5:36 PM CDT Associated Problem(s): Morbid obesity with BMI of 40.0-44.9, adult (HCC) (Resolved 2022) Reduce weight * Assessment & Plan Note - Tres Mccann DO - 05/08/2020 5:34 PM CDT Associated Problem(s): Elevated blood pressure reading No new orders Doing well documented in this encounter Plan of Treatment Not on file documented as of this encounter Visit Diagnoses Diagnosis Elevated blood pressure reading- Primary Elevated blood pressure reading without diagnosis of hypertension Morbid obesity with BMI of 40.0-44.9, adult (HCC) documented in this encounter Discontinued Medications Medication Sig Discontinue Reason Start Date End Da te sildenafil (VIAGRA) 100 mg tablet 100 mg daily Therapy completed 09/24/2016 05/08/2020 documented as of this encounter Care Teams Plumbing Service Technician Relationship Specialty Start Date End Date Tres Mccann DO PCP - General Family Medicine 02/24/19 documented as of this encounter
--- OUTSIDE RECORDS SUMMARY | 2024-07-23 13:12 | XMS_ITS | Encounter Summary ---
Author Organization [facility] Address [address] [place] [address] Care Team Providers Care Rail Signal Designer Name Role Phone Tres Mccann DO Primary Care Provider + Reason for Visit * Reason Onset Date Comments Letter for School/Work 04/23/2020 Encounter Details Date Type Department Care Team (Late st Contact Info) Description 04/23/2020 Telephone [facility] Family Medicine [address] [place] [address] Tres Mccann DO [address] [facility] [address] [place] [address] Letter for School/Work Social History Tobacco Use Types Packs/Day Years Used Date Smoking Tobacco: Former Smokeless Tobacco: Never Alcohol Use Standard Drinks/Week Comments Not Currently 0 (1 standard drink = 0.6 oz pur e alcohol) Sex and Gender Information Value Date Recorded Sex Assigned at Not on file 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 * Telephone Encounter - Desiree Desir RN - 04/23/2020 4:08 PM CDT Left VM to call back we need date he is returning * Telephone Encounter - Tres Mccann DO - 04/23/2020 1:25 PM CDT ok * Telephone Encounter - Janice Guardado - 04/23/2020 8:55 AM CDT Patient called. Needing a Letter for Work stating that okay to go back to work. & mauro ATTN: Nadeem Fleming on the letter as well. Thanks. Any questions for patient okay to call them. Thanks. documented in this encounter Plan of Treatment Not on file documented as of this encounter Visit Diagnoses Not on filedocumented in this encounter Care Teams Rail Signal Designer Relationship Specialty Start Date End Date Tres Mccann DO PCP - General Family Medicine 02/24/19 documented as of this encounter
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
== END 2024-07-16 12:16 | disposition home or self-care (01) ==
PROVIDERS: Emergency Provider Nurse Practitioner Family; PCP Family Medicine
DX: M10.9 Gout, unspecified (principal); Z86.718 Personal history of other venous thrombosis and embolism; Z79.01 Long term (current) use of anticoagulants
CPT/HCPCS: 73630; 99213; G0463

== ENCOUNTER 2024-12-28 08:45 | Emergency (ER) | payer BC, SELFPAY ==
--- NOTE | ~2024-12-28 | XR_ITS ---
EXAMINATION: XR ankle LT min 3V DATE: 12/28/2024 09:32 INDICATION: Lateral left ankle injury TECHNIQUE: Anteroposterior, oblique, mortise, and lateral views of the left ankle were obtained. COMPARISON: None. FINDINGS: Bone alignment is normal. No acute fracture. Small corticated ossicles along the distal tips of the m edial and lateral malleoli and likely also in the region of the anterior-inferior tibiofibular ligame nt consistent with sequela of chronic ankle sprains. Moderate-sized Achilles and plantar calcaneal sp urs and additional small enthesophyte along the dorsal neck of the talus. Mild polyarticular osteoart hritis at the left ankle and several of the profiled joints in the left foot. Diffuse soft tissue swe lling about the ankle most prominent over the lateral malleolus. No ankle joint effusion. IMPRESSION: 1. No acute osseous abnormality. 2. Degenerative changes including mild polyarticular osteoarthritis at the left foot and ankle and a few enthesophytes in the hindfoot. 3. Heterotopic ossicles along the medial and lateral stabilizing ligaments of the ankle consistent wi th sequela of chronic sprains. Reviewed, dictated and finalized at location A. IMPRESSION: 1. No acute osseous abnormality. 2. Degenerative changes including mild polyarticular osteoarthritis at the left foot and ankle and a few enthesophytes in the hindfoot. 3. Heterotopic ossicles along the medial and lateral stabilizing ligaments of t he ankle consistent with sequela of chronic sprains.
--- OUTSIDE RECORDS SUMMARY | 2024-12-28 08:49 | XMS_ITS | Patient Health Record ---
Author Organization [address] [facility] Address [address] [place] [address] Care Team Providers Care Content Manager Name Role Phone Tres Au Primary Care Provider Bernadine Chandra Unavailable [phone] Allergies No Known Allergies Reason For Referral [...] Insured Coverage Start Date Coverage End Date [facility] [address] [place] [address] [id number] Mir Maharaj Self - patient is the insured Medical (General) History Medical History History ICD Code arthritis, gout, high cholesterol Surgical History Surgery Date(Month/Year)
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
--- OUTSIDE RECORDS SUMMARY | 2024-12-28 08:49 | XMS_ITS | Data Portability ---
Author Organization [facility] Address [address] [place] [address] Assessment No assessment recorded. Plan of Treatment Reminders Order Date Submit Date Provider Last Modified By Organization Details Last Modified Time Details Appointments ANY 15 2024 07:30A M Tres Mccann, DO Not available Not available Not available Lab PSA, total, serum or plasma 2023 [facility], [address] [place], [address], 08/30/2024 16:43:44 vitamin D, 25-hydrox y, total, serum 2023 024 [facility]erred [facility] Fax, [address] [place], [address], 08/30/2024 16:43:50 CBC w/ auto diff 2023 024 [facility] Fax, [address] [place], [address], 08/14/2024 11:25:18 BMP, serum or plasma 2023 024 [facility] Fax, [address] [place], [address], 08/30/2024 16:43:33 lipid panel, serum 2023 024 [facility], [address] [place], [address], 08/30/2024 16:44:15 hepatic function panel, serum 2023 024 [facility], [address] [place], [address], 08/30/2024 16:44:08 TSH + free T4, serum 2023 024 [facility], [address] [place], [address], 08/30/2024 16:43:58 Referral None recorded. Procedures None recorded. Surgeries None recorded. Imaging None recorded. Medication Orders None recorded. Patient TargetsNo targets recorded. Patient Instructions Encounter Date Encounter Id Patient Instructions Last Modified By Organization Details Last Modified Time 03/24/2024 [id number] A healthy lifestyle: care instructions [id number] Not available 03/24/2024 09:22:45 Reason for Referral None Reported. Results Created Date Observation Date Name Description Value Unit Range Abnormal Flag Note LastModifiedBy Organization Detail LastModifiedTime 07/16/20 24 07/16/2024 XR, foot, 3 or more view No observ ation record ed. [facility] [address], [place], [address], 07/18/2024 09:25:10 Result Notes None recorded. Problems Name Problem SNOMED Code Status Onset Date Resolution Date Notes Provider Name and Address Organization Details Recorded Time Adult health examination Active 2023 Tres Mccann DO Attn: Tati duque,[address] [place], [address], [place] - [place] 4 08:43:56 Erectile dysfunction 617371641 Active 2023 Tres Mccann DO Attn: Tati duque,[address] [place], [address], [place] 4 08:43:57 Morbid obesity 277289194 Active 2023 Tres Mccann DO Attn: Tati duque,[address] [place], [address], [place] 4 09:22:43 Osteoarthritis of knee 720547508 Active 2023 Ters Mccann DO Attn: Tati duque,[address] [facility], [place], [address], [place] 4 09:30:56 Post-discharge follow-up 621371772 Active 2023 Tres Mccann DO Attn: Tati duque,[address] [facility], [place], [address], [facility] - SIF 4 08:37:57 Problem Notes None recorded. Medical Equipment None Reported. Allergies Allergen ID Allergen Name Allergen Category Reaction Reaction Severity Criticality Documentation Date Start Date Code Code System Note Provider Name and Address Organization Details Recorded Time 261835 Zithromax medicatio n rash Not available Not available 03/24/202419637 4 RxNorm Betty Reyes MA null, [place] - [place] 4 09:02:37 Medications Name Sig Start Date Stop Date Status Note LastModified by Organization Details LastModified Time cyclobenzap rine 10 mg tablet TAKE 1 TABLET BY MOUTH THREE TIMES A DAY NEEDED FOR MUSCLE SPASMS 03/24 completed Not Available Not Available Not Available prednisone 10 mg tablet TAKE 1 TABLET BY MOUTH EVERY DAY FOR 5 DAYS active Not Available Not Available No t Available prednisone 5 mg tablet TAKE 1 [...] completed Not Available Not Available Not Available levothyroxi ne 25 mcg tablet TAKE 1 TABLET EVERY DAY BY ORAL ROUTE IN THE MORNING. active Not Available Not Available No t Available ketorolac 10 mg tablet TAKE 1 [...] completed Not Available Not Available Not Available rosuvastati n 5 mg tablet TAKE 1 TABLET BY MOUTH EVERYDAY AT BEDTIME active Not Available Not Available No t Available tadalafil 20 mg tablet TAKE 1 TABLET BY MOUTH EVERY DAY NEEDED FOR ERECTILE DYSFUNCTI ON 03/24 completed Not Available Not Available Not Available Eliquis 5 mg tablet TAKE 1 TABLET BY MOUTH TWICE A DAY 09/01 completed Not Available Not Available Not Available Eliquis DVT-PE Treatment 30-Day Starter 5 mg (74 tablets) in dose pack FOLLOW PACKAGE DIRECTION S 04/18 completed Not Available Not Available Not Available Vitals Date Recorded Systolic blood pressure Diastolic blood pressure Provider Name and Address Organization Details Last Updated DateTime 03/24/2024 136 mm[Hg] 82 mm[Hg] Tres Mccann DO Attn: Accounting,[address] [place], [address], [facility] 03/24/2024 09:29:18 Date Recorded Body weight Body mass index (BMI) Body height Provider Name and Address Organization Details Last Updated DateTime 03/24/2024 878775.13 g 40 kg/m2 177.8 cm Betty Reyes MA [facility] 03/24/2024 09:02:16 Date Recorded Systolic blood pressure Diastolic blood pressure Provider Name and Address Organization Details Last Updated DateTime 04/18/2024 134 mm[Hg] 84 mm[Hg] Tres Mccann DO Attn: Account[address] [place], [address], [facility] 04/18/2024 08:37:53 Date Recorded Body height Body mass index (BMI) Body weight Oxygen saturation Oxygen saturation in Arterial blood by Pulse oximetry Heart rate Provider Name and Address Organization Details Last Updated DateTime 177.8 cm 39.2 kg/m2 467889. 82 g 98 % 98 % 57 /min Sunitha Saucedo MA [facility] SIF 08:16:38 Date Recorded Systolic blood pressure Diastolic blood pressure Provider Name and Address Organization Details Last Updated DateTime 07/18/2024 132 mm[Hg] 82 mm[Hg] Tres Mccann DO Attn: Accounting[address] [facility], [place], [address], [facility] 07/18/2024 09:06:36 Date Recorded Body height Body mass index (BMI) Body weight Provider Name and Address Organization Details Last Updated DateTime 07/18/2024 177.8 cm 39.1 kg/m2 810698.92 g Betty Reyes MA [facility] 07/18/2024 08:49:18 Social History Question Answer Notes LastModified by Organizat ion Details LastModified Time Tobacco Smoking Status Never Smoker Betty Reyes MA null, [facility] 03/24/2024 09:03:31 What Is Your Level Of Caffeine Consumption? Occasional Information not available 03/24/2024 What Was The Date Of Your Most Recent Tobacco Screening? 03/24/2024 Information not available 03/24/2024 Has Tobacco Cessation Counseling Been Provided? No Information not available 03/24/2024 Sex: Unknown Functional Status Question Answer Note LastModified by Organizat ion Details LastModified Time Do you use any illicit or recreational drugs? No Information not available 03/24/2024 Do you or have you ever used any other forms of tobacco or nicotine? No Information not available 03/24/2024 What is your level of alcohol consumption? Occasional Information not available 03/24/2024 Mental Status None recorded. Family History Nothing Reported. Medical History Condition Response Coronary Artery Disease N Other N Atrial Fibrillation N High Blood Pressure N Thyroid Problems N Kidney or Bladder Problems N GI Problems N Depression N COPD N Blood Clots N Have you had a mammogram in the last yea r? N Eating Disorder N Skin Problems N Anemia N Heart Attack ([place]) N Anxiety Disorder N Diabetes N Muscle, [...] Diagnosis/Indication Diagnosis SNOMED-CT Code Diagnosis ICD10 Code Diagnosis Note [id number] Tres Mccann DO [facility] [place] [facility] [place] [address] [place] [address] 03/24/2024 08:38:54 03/24/2024 10:33:33 Adult health examination 903756266 Z00.00 Routine labs after May 23, 2023Last PSA 0.7Last colonoscop y May 21, 2020 with recommenda tion to repeat at 5 years Erectile dysfunction 860 185770 F52.21 Chronic conditionA t goalCialis as needed 20 mg Morbid obesity 104351213 E66.01 chronic conditionn ot [facility] [place] [facility] dietweight loss Osteoarthr itis of knee 288361318 M17.9 60 mg kenalog imrgm Vitamin D deficiency 347 51064 E55.9 Screening for malignant neoplasm of prostate 514275431 Z12.5 [id number] Tres Mccann DO [facility] [place] [address] [place] [address] 04/18/2024 07:53:02 04/18/2024 08:55:46 Post-discharge follow-up 947451246 Z09 [facility] ERdiagnose d with a DVTon eliquis 5 mg bid Morbid obesity 542625027 E66.01 chronic conditionn ot at [facility] [place] [facility] dietweight loss Osteoarthr itis of knee 426627713 M17.9 chronic condition [id number] Tres Mccann DO [facility] [place] [address] [place] [address] 07/18/2024 08:42:56 07/18/2024 09:55:43 Osteoarthritis of knee 708519931 M17.9 chronic condition Morbid obesity 372404773 E66.01 chronic conditionn ot at [facility] [place] [facility] dietweight loss Erectile dysfunction 860 768820 F52.21 Chronic conditionA t goalCialis as needed 20 mg Post-disch arge follow-up 704905610 Z09 [facility] [place] with a DVTon eliquis 5 mg bidwas diagnosed on april 07will dc eliquis at this point Adult heal th examination 372585766 Z00.00 Routine labsLast colonoscop y May 21, 2020 with recommenda tion to repeat at 5 years Health Concerns Section Related Observation LastModified by Organization Detai ls LastModified Time None Recorded Concern Status LastModified by Organization Details LastModified Time None Recorded Advance Directives Directive None Recorded Payers Encounter Date Sequence Insurance Name Policy Number Policy Verma Covered Member ID Verma Member ID Guarantor Name 03/24/2024 1 [place] [id number] Mir L Lugge [id number] 02 Mir Lugge 04/18/2024 1 [place] [id number] Mir L Lugge [id number] 02 Mir Lugge 07/18/2024 1 [place] [id number] Mir L Lugge [id number] 02 Mir Lugge Notes Date Note Type Note Provider Name and Address Organization Details Recorded Time 03/24/2024 text/html Establish [facility] Tres Mccann DO Attn: [address] [place], [address], [facility] - [place] 03/24/2024 19:42:23 04/18/2024 text/html er follow updischargehad right knee pain Tres Mccann DO Attn: Account[address] [place], [address], [facility] - [place] 04/18/2024 11:44:49 07/18/2024 text/html routine follow u phad a fx of the wrist Tres Mccann DO Attn: Account[address] [place], [address], [facility] - [place] 07/18/2024 09:55:10
[2024-12-28 08:59] VITALS: BP 136/69; PULSE 70; RESP 18; TEMP 36.3; O2SAT 99
--- NOTE | 2024-12-28 09:20 | ED.LOWEXIN ---
HPI - Extremity Injury (Lower) General Chief Complaint: Extremity Injury, Lower Stated Complaint: LT Foot Injury History of Present Illness HPI Narrative: Patient is a 64-year-old male who presents to urgent care with complaints of left foot pain. His pain started after he got out of a truck on Thursday evening. Patient reports yesterday he applied ice to his left lower extremity, but his pain was not relieved. This morning when patient woke up his pain was more severe and his left ankle was swollen so he decided to come in for evaluation. Patient endorses a history of DVTs and gout. Related Data Home Medications ?Medication ?Instructions ?Recorded ?Confirmed ?Last Taken ?Type levothyroxine 25 mcg tablet mcg 12/28/24 Unknown History rosuvastatin 5 mg tablet mg 12/28/24 Unknown History Allergies Allergy/AdvReac Type Severity Reaction Status Date / Time azithromycin Allergy Severe Swelling Verified 12/28/24 08:48 of Lip/Tongue/Throat Review of Systems Review of Systems: All systems reviewed & are unremarkable except as noted in HPI and below PMFSH Past Medical History Medical History DVT (deep venous thrombosis) History of gout Osteoarthritis Social History Social History Smoking status: Current every day smoker Tobacco type: cigars Substance use: never Gender identity (if verbalized by the patient): Male Sexual Orientation (if Verbalized by the Patient): Straight or Heterosexual Exam Narrative: GENERAL: Well appearing, well-nourished, non-toxic, in no acute distress. HEAD: Normocephalic, atraumatic. NECK: Supple. No adenopathy, no masses. RESPIRATORY: Airway patent, respirations nonlabored. ABDOMINAL: Soft, nontender, nondistended, no hepatosplenomegaly. Normoactive BS. MUSCULOSKELETAL: Moves all extremities. Mild decreased ROM d/t pain and swelling in L ankle. NEGATIVE Moe's test. No signs/symptoms of infection. SKIN: Warm, dry, normal color. No rashes. L ankle and foot slightly reddened and edematous. Course Course Level of Care: Express Care Visit Vital Signs Vital signs: Vital Signs Temperature 36.3 C L 12/28/24 08:59 Pulse Rate 70 12/28/24 08:59 Respiratory Rate 18 12/28/24 08:59 Blood Pressure 136/69 12/28/24 08:59 Pulse Oximetry 99 12/28/24 08:59 Oxygen Delivery Room Air 12/28/24 08:59 Temperature 36.3 C L 12/28/24 08:59 Pulse Rate 70 12/28/24 08:59 Respiratory Rate 18 12/28/24 08:59 Blood Pressure 136/69 12/28/24 08:59 Pulse Oximetry 99 12/28/24 08:59 Oxygen Delivery Room Air 12/28/24 08:59 MDM - Extremity Injury (Lower) MDM Narrative Medical decision making narrative: Patient is a 64-year-old male who presents to urgent care with complaints of left foot pain. His pain started after he got out of a truck on Thursday evening. Patient reports yesterday he applied ice to his left lower extremity, but his pain was not relieved. This morning when patient woke up his pain was more severe and his left ankle was swollen so he decided to come in for evaluation. Patient endorses a history of DVTs and gout. Imaging Ordered: L ankle x-ray Results: L ankle x-ray indicates no acute osseous abnormality. Diagnosis: L ankle sprain Consults: orthopedics (as needed) Patient Education/Shared MDM: Results of imaging shared with patient. An Shahzad bandage was placed around his left lower extremity. Patient was strongly advised to try to not put pressure on his left foot. He should use the RICE acronym for treatment, take Tylenol and Ibuprofen together for pain relief, and follow-up with orthopedics as needed. Patient will be discharged home with no new prescriptions . Strict return precautions provided. Patient verbalized understanding and is in agreement with plan. Vital signs stable at time of discharge. All questions answered. Differential Diagnosis Differential diagnosis: Likely ankle sprain and strain and ankle fracture Imaging Data Attestation: I personally reviewed and interpreted this imaging study as follows: Radiologist's impression: Impressions Ankle X-Ray 12/28/24 09:36 IMPRESSION: 1. No acute osseous abnormality. 2. Degenerative changes including mild polyarticular osteoarthritis at the left foot and ankle and a few enthesophytes in the hindfoot. 3. Heterotopic ossicles along the medial and lateral stabilizing ligaments of the ankle consistent with sequela of chronic sprains. Discharge Plan Discharge Clinical Impression: Ankle sprain and strain Patient Disposition: Home Condition: Stable Instructions: Antibiotic Form, Ankle Sprain (ED), P.R.I.C.E. Treatment (ED) Additional Instructions: Please present to the ER with any worsening symptoms. Follow-up with primary care provider as soon as possible and orthopedics as needed. Take all medications as prescribed, including regularly scheduled medications. You may take Tylenol (1000mg) and ibuprofen (800mg) together for pain relief. Please try to rest your ankle! Patient Language: Albanian Prescriptions: No Action levothyroxine 25 mcg tablet rosuvastatin 5 mg tablet Follow-up/Referrals: Ramy,Tres Hudson MD [Primary Care Provider] - Stand Alone Forms: Work/School Release IP Time of Disposition: 10:18
== END 2024-12-28 10:23 | disposition home or self-care (01) ==
PROVIDERS: Emergency Provider Registered Nurse; PCP Family Medicine
DX: S93.402A Sprain of unspecified ligament of left ankle, initial encounter (principal); S96.912A Strain of unspecified muscle and tendon at ankle and foot level, left foot, initial encounter; X58.XXXA Exposure to other specified factors, initial encounter; M10.9 Gout, unspecified; M19.90 Unspecified osteoarthritis, unspecified site; Z86.718 Personal history of other venous thrombosis and embolism; F17.290 Nicotine dependence, other tobacco product, uncomplicated
CPT/HCPCS: 73610; 99213; G0463

== ENCOUNTER 2025-01-01 10:52 | Emergency (ER) | payer BC, SELFPAY ==
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
--- OUTSIDE RECORDS SUMMARY | 2025-01-01 10:54 | XMS_ITS | Data Portability ---
Author Organization [facility] Address [address] [place] [address] Assessment No assessment recorded. Plan of Treatment Reminders Order Date Submit Date Provider Last Modified By Organization Details Last Modified Time Details Appointments ANY 15 2024 07:30A M Tres Mccann, DO Not available Not available Not available Lab PSA, total, serum or plasma 2023 024 [facility], [address] [place], [address], 08/30/2024 16:43:44 vitamin D, 25-hydrox y, total, serum 2023 024 [facility] Fax, [address] [place], [address], 08/30/2024 16:43:50 CBC w/ auto diff 2023 024 [facility] Fax, [address] [place], [address], 08/14/2024 11:25:18 BMP, serum or plasma 2023 024 [facility] Fax, [address] [place], [address], 08/30/2024 16:43:33 lipid panel, serum 2023 024 [facility] Fax, [address] [place], [address], 08/30/2024 16:44:15 hepatic function panel, serum 2023 024 [facility] Fax, [address] [place], [address], 08/30/2024 16:44:08 TSH + free T4, serum 2023 024 [facility] Fax, [address] [place], [address], 08/30/2024 16:43:58 Referral None recorded. Procedures None recorded. Surgeries None recorded. Imaging None recorded. Medication Orders None recorded. Patient TargetsNo targets recorded. Patient Instructions Encounter Date Encounter Id Patient Instructions Last Modified By Organization Details Last Modified Time 03/24/2024 [id number] A healthy lifestyle: care instructions Not available 03/24/2024 09:22:45 Reason for Referral None Reported. Results Created Date Observation Date Name Description Value Unit Range Abnormal Flag Note LastModifiedBy Organization Detail LastModifiedTime 07/16/20 24 07/16/2024 XR, foot, 3 or more view No observ ation record ed. [facility] [address], [place], [address], 07/18/2024 09:25:10 Result Notes None recorded. Problems Name Problem SNOMED Code Status Onset Date Resolution Date Notes Provider Name and Address Organization Details Recorded Time Adult health examination Active 2023 rTes Mccann DO Attn: Tati duque,[address] [place], [address], [place] - [place] 4 08:43:56 Erectile dysfunction 484730802 Active 2023 Tres Mccann DO Attn: Tati duque,[address] [place], [address], [place] 4 08:43:57 Morbid obesity 074395379 Active 2023 Tres Mccann DO Attn: Tati duque,[address] [place], [address], [place] 4 09:22:43 Osteoarthritis of knee 241447618 Active 2023 Tres Mccann DO Attn: Tati duque,[address] [facility], [place], [address], [place] 4 09:30:56 Post-discharge follow-up 751158910 Active 2023 Tres Mccann DO Attn: Tati duque,[address] [facility], [place], [address], [facility] - [facility] 4 08:37:57 Problem Notes None recorded. Medical Equipment None Reported. Allergies Allergen ID Allergen Name Allergen Category Reaction Reaction Severity Criticality Documentation Date Start Date Code Code System Note Provider Name and Address Organization Details Recorded Time 366477 Zithromax medicatio n rash Not available Not available 03/24/202419637 4 RxNorm Betty Reyes MA null, [place] - [place] 4 09:02:37 Medications Name Sig [...] No t Available meloxicam 7.5 mg tablet Take 1 tablet every day by oral route. 2024 active Not Available Not Available Not Avai lable prednisone 50 mg tablet TAKE 1 TABLET [...] mm[Hg] Tres Mccann DO Attn: [address] [place], [address], [facility] 03/24/2024 09:29:18 Date Recorded Body weight Body mass index (BMI) Body height Provider Name and Address Organization Details Last Updated DateTime 03/24/2024 801015.13 g 40 kg/m2 177.8 cm Betty Reyes MA [facility] 03/24/2024 09:02:16 Date Recorded Systolic blood pressure Diastolic blood pressure Provider Name and Address Organization Details Last Updated DateTime 04/18/2024 134 mm[Hg] 84 mm[Hg] Tres Mccann DO Attn: [address] [place], [address], [facility] 04/18/2024 08:37:53 Date Recorded Body height Body mass index (BMI) Body weight Oxygen saturation Oxygen saturation in Arterial blood by Pulse oximetry Heart rate Provider Name and Address Organization Details Last Updated DateTime 177.8 cm 39.2 kg/m2 308943. 82 g 98 % 98 % 57 /min Sunitha Saucedo MA [facility] 08:16:38 Date Recorded Systolic blood pressure Diastolic blood pressure Provider Name and Address Organization Details Last Updated DateTime 07/18/2024 132 mm[Hg] 82 mm[Hg] Tres Mccann DO Attn: [address] , [place], [address], [facility] 07/18/2024 09:06:36 Date Recorded Body height Body mass index (BMI) Body weight Provider Name and Address Organization Details Last Updated DateTime 07/18/2024 177.8 cm 39.1 kg/m2 838022.92 g Betty Reyes MA [facility] 07/18/2024 08:49:18 Social History Question Answer Notes LastModified by [employer] Details LastModified Time Tobacco Smoking Status Never Smoker Betty Reyes MA null, [facility] 03/24/2024 09:03:31 What Is Your Level Of Caffeine Consumption? Occasional Information not available 03/24/2024 What Was The Date Of Your Most Recent Tobacco Screening? 03/24/2024 Information not available 03/24/2024 Has Tobacco Cessation Counseling Been Provided? No Information not available 03/24/2024 Sex: Unknown Functional Status Question Answer Note LastModified by [employer] Details LastModified Time Do you use any [...] Problems N Kidney or Bladder Problems N Depression N COPD N Blood Clots N GI Problems N Have you had a mammogram in the last yea r? N Skin Problems N Eating Disorder N Anemia N Heart Attack ([place]) N Diabetes N Anxiety Disorder N Muscle, Joint, or Bone Problems N Seizures/Epilepsy N Have you had a colonoscopy in the last 1 0 years? N Arthritis N Acid Reflux (GERD) N Cancer N Stroke N Allergies N Asthma N Have you had a PSA blood test in the las t year? N ADHD N Substance Abuse N High Cholesterol N Hepatitis N Liver Disease N Schizophrenia N Headaches N Osteoporosis N Heart Failure N Past Encounters Encounter ID Performer Location Encounter Start Date Encounter Closed Date Diagnosis/Indication Diagnosis SNOMED-CT Code Diagnosis ICD10 Code Diagnosis Note [id number] Tres Mccann DO [facility] [place] [address] [facility] [address] [place] [address] 03/24/2024 08:38:54 03/24/2024 10:33:33 Adult health examination 838265082 Z00.00 Routine labs after May 23, 2023Last PSA 0.7Last colonoscop y May 21, 2020 with recommenda tion to repeat at 5 years Erectile dysfunction 860 859571 F52.21 Chronic conditionA t goalCialis as needed 20 mg Morbid obesity 986897844 E66.01 chronic conditionn ot at [facility] dietweight loss Osteoarthr itis of knee 657849236 M17.9 60 mg kenalog imrgm Vitamin D deficiency 347 36022 E55.9 Screening for malignant neoplasm of prostate 708100483 Z12.5 [id number] Tres Mccann DO [facility] [place] [address] [facility] [address] [place] [address] 04/18/2024 07:53:02 04/18/2024 08:55:46 Post-discharge follow-up 964894148 Z09 [facility] ERdiagnose d with a DVTon eliquis 5 mg bid Morbid obesity 551241183 E66.01 chronic conditionn ot at [facility] y dietweight loss Osteoarthr itis of knee 787374973 M17.9 chronic condition [id number] Tres Mccann DO [facility] [place] [address] [facility] [address] [place] [address] 07/18/2024 08:42:56 07/18/2024 09:55:43 Osteoarthritis of knee 489923148 M17.9 chronic condition Morbid obesity 642683218 E66.01 chronic conditionn ot at [facility] y dietweight loss Erectile dysfunction 860 791432 F52.21 Chronic conditionA t goalCialis as needed 20 mg Post-disch arge follow-up 935911520 Z09 [facility] with a DVTon eliquis 5 mg bidwas diagnosed on april 07will dc eliquis at this point Adult heal th examination 442750788 Z00.00 Routine labsLast colonoscop y May 21, [...] ID Guarantor Name 03/24/2024 1 [place] [id number] Mir L Lugge [id number] 02 Mir Lugge 04/18/2024 1 [place] [id number] Mir L Lugge [id number] 02 Mir Lugge 07/18/2024 1 [place] [id number] Mir L Lugge [id number] 02 Mir Lugge Notes Date Note Type Note Provider Name and Address Organization Details Recorded Time 03/24/2024 text/html Establ[facility] Tres Mccann DO Attn: [address] [place], [address], [facility] - [place] 03/24/2024 19:42:23 04/18/2024 text/html er follow updischargehad right knee pain Tres Mccann DO Attn: [address] [place], [address], [place] 04/18/2024 11:44:49 07/18/2024 text/html routine follow u phad a fx of the wrist Tres Mccann DO Attn: [address] [place], [address], [place] 07/18/2024 09:55:10
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
--- OUTSIDE RECORDS SUMMARY | 2025-01-01 10:55 | XMS_ITS | Patient Health Record ---
Author Organization [facility] Address [address] [facility] [address] [place] [address] Care Team Providers Care Radiographer Angiogram Name Role Phone Tres Au Primary Care Provider Bernadine Chandra Unavailable [phone] Allergies No Known Allergies Reason For Referral [...] Insured Coverage Start Date Coverage End Date [facility] [address] [place] [address] [phone] [id number] Mir Maharaj Self - patient is the insured Medical (General) History Medical History History ICD Code arthritis, gout, high cholesterol Surgical History Surgery Date(Month/Year)
--- NOTE | 2025-01-01 10:56 | ED_ITS ---
HPI - General Adult General Chief complaint: Extremity Injury, Lower Stated complaint: Left Ankle Pain Time Seen by Provider: 01/01/25 10:56 Source: patient Mode of arrival: ambulatory Limitations: no limitations History of Present Illness HPI narrative: 64-year-old male patient presents to the [facility] with request for an extension on his work note. Patient was seen here last week and was diagnosed with a left ankle sprain. Patient was given crutches and wraps. Patient was given 3 days off work. Patient states he is no longer using the crutches and the pain is starting to subside but it is still very sore and does have a problem standing long periods and is requesting an extension on his work note until he can follow up with his doctor on Thursday. Patient states he has been taking Tylenol for pain, elevating it and icing it. Related Data Home Medications ?Medication ?Instructions ?Recorded ?Confirmed ?Last Taken ?Type levothyroxine 25 mcg tablet mcg 12/28/24 Unknown History rosuvastatin 5 mg tablet mg 12/28/24 Unknown History meloxicam 7.5 mg tablet mg 01/01/25 Unknown History Allergies Allergy/AdvReac Type Severity Reaction Status Date / Time azithromycin Allergy Severe Swelling Verified 01/01/25 11:02 of Lip/Tongue/Throat Review of Systems Review of Systems: CONSTITUTIONAL: Denies fever, chills, or sweats. EYES: Denies visual changes, redness, or discharge. ENT: Denies rhinorrhea, congestion, sore throat, or otalgia. CARDIOVASCULAR: Denies chest pain, palpitations, or edema. RESPIRATORY: Denies cough or dyspnea. GASTROINTESTINAL: Denies abdominal pain, nausea, vomiting, or diarrhea. GENITOURINARY: Denies dysuria or hematuria. SKIN: Denies rash or itching. MUSCULOSKELETAL: Denies back pain, joint pain, or myalgia. Positive left ankle pain NEUROLOGIC: Denies headache, numbness, or weakness. PSYCHIATRIC: Denies anxiety or depression. [facility] Past Medical History Medical History DVT (deep venous thrombosis) History of gout Osteoarthritis Social History Social History Smoking status: Current every day smoker Tobacco type: cigars Substance use: never Gender identity (if verbalized by the patient): Male Sexual Orientation (if Verbalized by the Patient): Straight or Heterosexual Comments At the time of my signature I agree with nursing past medical history, surgical, social, and family history. There is no relevant family history pertinent to the presenting complaint. Exam Narrative: GENERAL: Well-appearing, well-nourished, and in no acute distress. HEAD: Normocephalic, atraumatic. EYES: PERRLA and EOMI. ENT: Nares clear, no rhinorrhea or epistaxis. Mucous membranes moist. NECK: Supple. No lymphadenopathy CHEST: Clear to auscultation. No respiratory distress. HEART: Regular rate and rhythm. No murmur heard. Normal peripheral pulses. ABDOMEN: Soft, nontender, nondistended, normal active bowel sounds. EXTREMITIES: Patient is able to bear weight and ambulate but does complain of some soreness to the left ankle. The L ankle is without obvious asymmetry or deformity when compared to the R ankle. Patient can flex/extend, invert/derrick. No obvious surface trauma, ecchymosis, there is some soft tissue swelling noted to the medial and lateral malleolus area and across the top of the left foot /ankle. No body tenderness to palpation over the medial or lateral malleolus. Anterior talofibular ligament, posterior talofibular ligament, calcaneofibular ligament nontender and without swelling. No tenderness or deformity of the or over the proximal fifth metatarsal. Good DP and posterior tibial pulses and sensation to light touch normal. Talar tilt test is negative for ligament laxity to valgus or vargus stress. Negative anterior draw. Peroneal nerve is intact with strong eversion and plantar flexion. SKIN: Warm, dry, no rash. NEURO: No focal deficits. Alert and oriented x3. Course Course Level of Care: Express Care Visit Vital Signs Vital signs: Vital Signs Temperature 36.6 C 01/01/25 11:01 Pulse Rate 67 01/01/25 11:01 Respiratory Rate 16 01/01/25 11:01 Blood Pressure 154/77 H 01/01/25 11:01 Pulse Oximetry 100 01/01/25 11:01 Oxygen Delivery Room Air 01/01/25 11:01 Temperature 36.6 C 01/01/25 11:01 Pulse Rate 67 01/01/25 11:01 Respiratory Rate 16 01/01/25 11:01 Blood Pressure 154/77 H 01/01/25 11:01 Pulse Oximetry 100 01/01/25 11:01 Oxygen Delivery Room Air 01/01/25 11:01 Vital signs reviewed. The patient has been informed that they may have pre-hypertension or Hypertension based on a BP reading in the department. I recommend that the patient call the primary care provider listed on their discharge instructions or a physician of their choice this week to arrange follow up for further evaluation of possible pre-hypertension or Hypertension Medical Decision Making MDM Narrative Medical decision making narrative: plan care for patient is to discharge home with an extension on his work note. We will give him off until the 05 of January in which time that will give him ample enough time to continue to follow-up with his primary doctor to see if he might need some restrictions going back to work. Encouraged patient to continue doing what he has been doing with the icing, elevating and notified him he needs to keep his Shahzad wrap on or get a good compression ankle brace to place on the ankle when he is up moving around. Patient verbalized understanding of the plan denies any other questions or concerns at this time. Differential Diagnosis Differential Diagnosis: Differential diagnosis: Foot fracture, crush injury, compartment syndrome, contusion, sprain, tendinitis,lisfranc sprain or fracture, avulsion fracture, grown toenail, diabetic ulcer. Vital Signs Vital Signs: Vital Signs Temperature 36.6 C 01/01/25 11:01 Pulse Rate 67 01/01/25 11:01 Respiratory Rate 16 01/01/25 11:01 Blood Pressure 154/77 H 01/01/25 11:01 Pulse Oximetry 100 01/01/25 11:01 Oxygen Delivery Room Air 01/01/25 11:01 Temperature 36.6 C 01/01/25 11:01 Pulse Rate 67 01/01/25 11:01 Respiratory Rate 16 01/01/25 11:01 Blood Pressure 154/77 H 01/01/25 11:01 Pulse Oximetry 100 01/01/25 11:01 Oxygen Delivery Room Air 01/01/25 11:01 Critical Care Time Critical Care Time Critical Care Time: No Discharge Plan Discharge Clinical Impression: Ankle sprain and strain, Encounter to obtain excuse from work Patient Disposition: Home Condition: Stable Instructions: Antibiotic Form, Ankle Sprain (ED) Additional Instructions: Avoid weight bearing until the pain subsides. Ice to the area 20-30 minutes 4-6 times a day Elevate above heart Elastic wrap or orthopedic splint as directed for comfort for the next 5-7 days Crutches as directed if needed Tylenol for lesser pain Ibuprofen regularly for the next 2-3 days for the inflammation Follow up with your primary care provider if the condition is not improving within 1 week or sooner if the Condition worsens with numbness, tingling, decrease sensation with weakness to seek ER. Patient Language: Malay Prescriptions: No Action levothyroxine 25 mcg tablet rosuvastatin 5 mg tablet meloxicam 7.5 mg tablet Follow-up/Referrals: Metzger,Tres Hudson MD [Primary Care Provider] - Stand Alone Forms: Work/School Release IP Time of Disposition: 11:32
[2025-01-01 11:01] VITALS: BP 154/77; PULSE 67; RESP 16; TEMP 36.6; O2SAT 100
== END 2025-01-01 11:34 | disposition home or self-care (01) ==
PROVIDERS: Emergency Provider Nurse Practitioner Family; PCP Family Medicine
DX: Z02.79 Encounter for issue of other medical certificate (principal); S93.402D Sprain of unspecified ligament of left ankle, subsequent encounter; S96.912D Strain of unspecified muscle and tendon at ankle and foot level, left foot, subsequent encounter; X58.XXXD Exposure to other specified factors, subsequent encounter; M19.90 Unspecified osteoarthritis, unspecified site; M10.9 Gout, unspecified; Z86.718 Personal history of other venous thrombosis and embolism; F17.290 Nicotine dependence, other tobacco product, uncomplicated
CPT/HCPCS: 99212; G0463